=== PATIENT | male | born 1930 | race Caucasian/White ===

== ENCOUNTER 2021-04-17 16:51 | Inpatient (IN) | payer MEDICARE, OTHER ==
[2021-04-16] MEDS: CARVEDILOL 3.125 MG TABLET PO SCH (09:41)
[~2021-04-17] VITALS: Ht 188 cm; Wt 86.6 kg
[~2021-04-17 16:51] MED LIST: ASPI-1094 PO; ATOR20TA PO; CARV3.12 PO; CEPH500C2 PO; FEBU40TA PO; POTA8TAB3 PO; WARF5TAB PO
--- NOTE | 2021-04-17 17:01 | NUR ---
PT BIBRA 88 FOR ELEVATED KEE 99.8 ORAL, SOB 80% IN ROOM AIR , ALS AND EXCESSIVE URINATION. SYMPTOMS STARTED LAST NIGHT. PT COVID VACINATED. UPON TRIAGE RECTAL TEMP 103.1; SKIN WARM TO TOUCH. PT TOLERATING O2 4LPM VIA N/C AT 98%. PT A/OX4. CONNECTED PT TO POX AND MONITOR. SAFETY MEASURES IN PLACE.
[2021-04-17] MEDS ORDERED: ACETAMINOPHEN ES 500 MG TABLET ONE (17:30)
[2021-04-17] MEDS ORDERED: ACETAMINOPHEN ES 500 MG TABLET PO ONE (17:30)
[2021-04-17] MEDS ORDERED: IV NS 0.9% 1,000 ML BAG IV ONE (17:30)
--- NOTE | 2021-04-17 17:38 | NUR ---
DIRECTOR OF THERAPY SERVICES L WRIST #18G S/L; PATENT AND INTACT. INITIATED RFA #18G S/L; PATENT AND INTACT. BLOOD COLLECTED AND SENT TO LAB.
--- NOTE | 2021-04-17 17:45 | NUR ---
URINE COLLECTED AND SENT TO LAB
--- NOTE | 2021-04-17 17:50 | NUR ---
COMMERCIAL FINANCE ANALYST AT PT'S BEDSIDE
--- NOTE | 2021-04-17 18:09 | NUR ---
POC BS 142; BASIL VALLECILLO AWARE
--- NOTE | 2021-04-17 18:18 | NUR ---
COVID PCR SWAB COLLECTED AND SENT TO LAB
[2021-04-17 18:22] LABS: BASOPHILS % (AUTO) 0.3 % (0.0-2.0); HEMATOCRIT 32 % (39-51); HEMOGLOBIN 10.2 g/dL (13.5-17.5); LYMPHOCYTES # (AUTO) 0.5 K/uL (0.8-4.8); LYMPHOCYTES % (AUTO) 7.7 % (20.0-44.0); MEAN CORPUSCULAR HGB CONC 32 g/dl (31.0-36.0); MEAN CORPUSCULAR VOLUME 88 fL (80-96); MONOCYTES # (AUTO) 0.7 K/uL (0.1-1.30); MONOCYTES % (AUTO) 10.8 % (2.0-12.0); NEUTROPHILS # (AUTO) 5.4 K/uL (1.8-8.9); NEUTROPHILS % (AUTO) 81.2 % (43.0-81.0); PLATELET COUNT (AUTO) 205 K/uL (150-450); RED BLOOD CELL COUNT(AUTO) 3.66 MIL/uL (4.5-6.0); WHITE BLOOD COUNT (AUTO) 6.7 K/uL (4.3-11.0)
[2021-04-17 18:24] LABS: BILIRUBIN,URINE NEGATIVE (NEGATIVE); COLOR,URINE YELLOW (YELLOW); LEUKOCYTE ESTERASE ,URINE NEGATIVE (NEGATIVE); NITRITE, URINE POSITIVE (NEGATIVE); PROTEIN,URINE 100 mg/dl (NEGATIVE); UGLUCOSE NEGATIVE (NEGATIVE); UROBILINOGEN,URINE 0.2 EU/dL (0.2)
--- NOTE | 2021-04-17 18:44 | NUR ---
UPDATED WILLIAMS SNOW () ON PT'S STATUS
[2021-04-17 18:48] LABS: BACTERIA,URINE Many /HPF (None Seen); SQUAMOUS EPITHELIAL CELL,UR Few /HPF (None Seen)
[2021-04-17 18:55] LABS: CALCIUM, SERUM 8.7 mg/dL (8.5-10.1); CARBON DIOXIDE 27 mmol/L (21-32); CHLORIDE 101 mmol/L (98-107); CREATININE 1.8 mg/dL (0.6-1.3); GLUCOSE 124 mg/dL (74-106); POTASSIUM 3.4 mmol/L (3.5-5.1); SODIUM SERUM 138 mmol/L (136-145); UREA NITROGEN, BLOOD 32 mg/dL (7-18)
--- NOTE | 2021-04-17 18:56 | NUR ---
PT COVID ANTIGEN (+); NOTIFIED BASIL VALLECILLO
[2021-04-17] MEDS ORDERED: DEXAMETHASONE SOD PHOSPHATE 6 MG in IV D5W 50 ML IV ONE (19:00)
--- NOTE | 2021-04-17 19:03 | NUR ---
Emely ma in [facility] - 04/18/21 at 0117 by DAVID SPUTUM CX COLLECTED BY MEENAKSHI HAYES AND SENT TO LAB
[2021-04-17 19:08] LABS: ALANINE AMINOTRANSFERASE 16 U/L (12-78); ALBUMIN 3.1 g/dL (3.4-5.0); ALKALINE PHOSPHATASE 91 U/L (46-116); ASPARTATE AMINOTRANSFERASE 29 U/L (15-37); BILIRUBIN,DIRECT 0.2 mg/dL (0.0-0.2); BILIRUBIN,TOTAL 0.5 mg/dL (0.2-1.0); TOTAL PROTEIN, SERUM 7.4 g/dL (6.4-8.2)
[2021-04-17] MEDS ORDERED: PIPERACILLIN /TAZOBACTAM 3.375 G in IV D5W 50 ML IV ONE (19:30)
[2021-04-17] MEDS ORDERED: PIPERACILLIN /TAZOBACTAM 3.375 G VIAL IV ONE (19:36)
[2021-04-17] MEDS ORDERED: ONDANSETRON HCL/PF 4 MG/2 ML VIAL IVP PRN (21:30)
[2021-04-17] MEDS ORDERED: ZOLPIDEM TARTRATE 5 MG TABLET PO PRN (21:30)
[2021-04-17] MEDS ORDERED: Z GUARD REMEDY 4 OZ OINT TP PRN (21:30)
[2021-04-17] MEDS ORDERED: MAGNESIUM HYDROXIDE 30 ML UDC PO PRN (21:30)
[2021-04-17] MEDS ORDERED: CARVEDILOL 3.125 MG TABLET ONE (21:38)
[2021-04-17] MEDS ORDERED: CEFTRIAXONE 1GM BAG (ER ONLY) 50 ML IV ONE (21:38)
[2021-04-17] MEDS ORDERED: ATORVASTATIN 10 MG TABLET ONE (22:01)
[2021-04-17] MEDS: CARVEDILOL 3.125 MG TABLET PO SCH (22:01)
[2021-04-17] MEDS: CEFTRIAXONE 1 G in IV D5W 50 ML IV SCH (22:02)
[2021-04-17] MEDS: ATORVASTATIN 10 MG TABLET PO SCH (22:03)
--- NOTE | 2021-04-18 01:19 | NUR ---
PT TOLERATING O2 1LPM VIA N/C AT 98%. RFA #18G & LFA #18G S/L; PATENT AND INTACT. PT IN NO ACUTE DISTRESS AT THIS TIME. ENDORSED CARE TO ИВАН BAIRD.
[2021-04-18 05:02] LABS: BASOPHILS % (AUTO) 0.3 % (0.0-2.0); HEMATOCRIT 36 % (39-51); HEMOGLOBIN 11.2 g/dL (13.5-17.5); LYMPHOCYTES # (AUTO) 0.7 K/uL (0.8-4.8); LYMPHOCYTES % (AUTO) 12.2 % (20.0-44.0); MEAN CORPUSCULAR HGB CONC 31 g/dl (31.0-36.0); MEAN CORPUSCULAR VOLUME 89 fL (80-96); MONOCYTES # (AUTO) 0.4 K/uL (0.1-1.30); MONOCYTES % (AUTO) 6.5 % (2.0-12.0); NEUTROPHILS # (AUTO) 4.9 K/uL (1.8-8.9); PLATELET COUNT (AUTO) 201 K/uL (150-450); RED BLOOD CELL COUNT(AUTO) 4.02 MIL/uL (4.5-6.0)
[2021-04-18 06:09] LABS: CHOLESTEROL 94 mg/dL (<200); HDL CHOLESTEROL 44 mg/dL (40-60); LDL 41 mg/dL (0-99); TRIGLYCERIDES 48 mg/dL (30-150)
[2021-04-18 06:17] LABS: CALCIUM, SERUM 8.9 mg/dL (8.5-10.1); CARBON DIOXIDE 24 mmol/L (21-32); CHLORIDE 101 mmol/L (98-107); CREATININE 1.7 mg/dL (0.6-1.3); GLUCOSE 164 mg/dL (74-106); MAGNESIUM 2.3 mg/dL (1.8-2.4); SODIUM SERUM 138 mmol/L (136-145); UREA NITROGEN, BLOOD 33 mg/dL (7-18)
[2021-04-18] MEDS: DEXAMETHASONE SOD PHOSPHATE 4 MG/ML VIAL IV SCH (09:41)
[2021-04-18] MEDS: ASPIRIN 81 MG TAB.CHEW PO SCH (09:41)
[2021-04-18] MEDS ORDERED: DEXAMETHASONE SOD PHOSPHATE 10 MG/ML VIAL ONE (09:52)
[2021-04-18] MEDS ORDERED: CARVEDILOL 3.125 MG TABLET ONE (09:53)
[2021-04-18] MEDS ORDERED: ASPIRIN 81 MG TAB.CHEW ONE (09:53)
--- NOTE | 2021-04-18 10:56 | NUR ---
GOT BED 107
--- NOTE | 2021-04-18 11:10 | NUR ---
REPORT GIVEN TO DAMIAN FOR SRIDHAR
--- NOTE | 2021-04-18 11:28 | NUR ---
RN NOTE RECEIVE REPORT FROM [facility] ED NURSE.
--- NOTE | 2021-04-18 11:40 | NUR ---
PT TRANSFERRING TO LUIZ 107 VIA ACLS PROTOCOL. PT TOLERATING O2 4LPM VIA N/C AT 95%. ALL BELONGINGS WITH PT.
[2021-04-18 13:54] VITALS: BP 188/124
[2021-04-18] MEDS: IV D5/ 0.9% NACL 1,000 ML IV PRN (14:23)
[2021-04-18 16:00] VITALS: BP 167/85
[2021-04-18] MEDS: WARFARIN SODIUM 5 MG TABLET PO SCH (17:57)
--- NOTE | 2021-04-18 18:38 | NUR ---
RN CLOSING NOTE PATIENT REMAIN IN STABLE CONDITION WITH NO SIGN OF DISTRESS DURING SHIFT. PATIENT WAS ADMITTED TO THE UNIT FROM ED DEPARTMENT. ON O2 THERAPY WITH NC AT 4L/MIN. WITH O2 SAT AT 100%. RECEIVING IV HYDRATION WITH D5 NaCl @75ml/hr. COMPOSITION WEATHERBOARD APPLIER SHOWS AFIB CONTROL. A/O X3. PATIENT IS RESTING COMFORTABLE. PROPER ISOLATION PRECAUTION IN PLACE. ALL SAFETY MEASURE IN PLACE BED ON LOWEST POSITION WITH HOB ELEVATED AND 3 SIDE RAIL UP. CALL LIGHT WITHIN REACH. WILL CONTINUE TO MONITOR AND ENDORSE TO REGISTERED CLIENT ASSOCIATE NURSE.
--- NOTE | 2021-04-18 19:30 | NUR ---
RN OPENING NOTE RECEIVED PATIENT IN BED. A/OX3, WITH PERIODS OF CONFUSION. ON OXYGEN 4L/MIN VIA NASAL CANULA. PATIENT IS TACHYPNEIC AND SOB. O2 SAT 97%. NO C/O PAIN AT THIS TIME. TELE MONITOR READS CONTROLLED AFIB WITH PVC. IV ACCESS IN LEFT HAND AND RIGHT FOREARM RUNNING D5NS@75ML/HR. BED IS LOW AND LOCKED, HOB ELEVATED IN SEMI FOWLERS, SIDE RIALS UP X3, CALL LIGHT WITHIN REACH. BED ALARM ON.
[2021-04-18 20:00] VITALS: BP 180/80
[2021-04-18] MEDS: CARVEDILOL 3.125 MG TABLET PO SCH (20:15)
--- NOTE | 2021-04-18 20:50 | NUR ---
RN NOTE RECEIVED CRITICAL LAB FOR BLOOD CULTURE GRAM POSITIVE COCCI IN [place]. INFORMED CONDUCTOR/ENGINEER MARINO LOAIZA NP, THAT PATIENT IS ON ROCEPHIN 1GM Q24HR. NO NEW ORDERS RECEIVE. LATER SEEN AN ORDER WAS PLACED FOR [facility] TO DOSE.
[2021-04-18] MEDS: CEFTRIAXONE 1 G in IV D5W 50 ML IV SCH (21:02)
[2021-04-18] MEDS: ATORVASTATIN 10 MG TABLET PO SCH (21:03)
[2021-04-18] MEDS ORDERED: VANCOMYCIN 1 GM VIAL ONE (22:43)
[2021-04-18] MEDS ORDERED: VANCOMYCIN 1 GM in IV D5W 250ml IV ONE (23:00)
[2021-04-19] VITALS: BP 143/68
[2021-04-19] MEDS: ACETAMINOPHEN 325 MG TABLET PO PRN ×2 (00:17→21:46)
[2021-04-19 04:00] VITALS: BP 150/47
[2021-04-19] MEDS: IV D5/ 0.9% NACL 1,000 ML IV PRN ×2 (04:25→20:27)
--- NOTE | 2021-04-19 06:14 | NUR ---
RN CLOSING NOTE PATIENT RESTING IN BED. A/OX2-3, WITH PERIODS OF CONFUSION. ON OXYGEN 10L/MIN VIA SIMPLE MASK.REMAINS TACHYPNEIC, INFORMED MULTIPLE TIME TO KEEP MASK ON. NO C/O PAIN THROUGHOUT NIGHT. MANAGED FEVER OF 101.6 WITH TYLENOL. TELE MONITOR IS CONTROLLED AFIB. RFA RUNNING D5NS@75ML/HR. BED REMAINS LOW AND LOCKED, HOB ELEVATED IN SEMI FOWLERS, SIDE RIALS UP X3, CALL LIGHT WITHIN REACH. BED ALARM ON. WILL ENDORSE TO ONCOMING SHIFT
[2021-04-19 06:41] LABS: BASOPHILS % (AUTO) 0.1 % (0.0-2.0); HEMATOCRIT 35 % (39-51); LYMPHOCYTES # (AUTO) 0.7 K/uL (0.8-4.8); LYMPHOCYTES % (AUTO) 6.4 % (20.0-44.0); MEAN CORPUSCULAR HGB CONC 32 g/dl (31.0-36.0); MEAN CORPUSCULAR VOLUME 89 fL (80-96); MONOCYTES # (AUTO) 0.9 K/uL (0.1-1.30); MONOCYTES % (AUTO) 8.4 % (2.0-12.0); NEUTROPHILS # (AUTO) 9.2 K/uL (1.8-8.9); NEUTROPHILS % (AUTO) 85.1 % (43.0-81.0); PLATELET COUNT (AUTO) 235 K/uL (150-450); RED BLOOD CELL COUNT(AUTO) 3.92 MIL/uL (4.5-6.0); WHITE BLOOD COUNT (AUTO) 10.8 K/uL (4.3-11.0)
[2021-04-19 06:49] LABS: CALCIUM, SERUM 8.9 mg/dL (8.5-10.1); CARBON DIOXIDE 25 mmol/L (21-32); CHLORIDE 103 mmol/L (98-107); CREATININE 1.7 mg/dL (0.6-1.3); GLUCOSE 139 mg/dL (74-106); MAGNESIUM 2.1 mg/dL (1.8-2.4); POTASSIUM 3.6 mmol/L (3.5-5.1); SODIUM SERUM 137 mmol/L (136-145); UREA NITROGEN, BLOOD 41 mg/dL (7-18)
[2021-04-19 07:00] LABS: PHOSPHORUS 3.4 mg/dL (2.5-4.9)
--- NOTE | 2021-04-19 07:28 | NUR ---
MECHANICAL ENGINEERING TEACHER OPENING NOTE RECEIVED PATIENT IN BED. A/OX2-3, WITH PERIODS OF CONFUSION. ON OXYGEN 10L/MIN VIA SIMPLE MASK. PATIENT IS TACHYPNEIC AND SOB. O2 SAT 97%. NO C/O PAIN AT THIS TIME. TELE MONITOR READS CONTROLLED AFIB WITH PVC. IV ACCESS IN LEFT HAND AND RIGHT FOREARM RUNNING D5NS@75ML/HR. BED IS LOW AND LOCKED, HOB ELEVATED IN SEMI FOWLERS, SIDE RIALS UP X3, CALL LIGHT WITHIN REACH. BED ALARM ON, WILL CONTINUE TO MONITOR.
[2021-04-19 08:00] VITALS: BP 157/80
[2021-04-19] MEDS: DEXAMETHASONE SOD PHOSPHATE 4 MG/ML VIAL IV SCH (08:51)
[2021-04-19] MEDS: ASPIRIN 81 MG TAB.CHEW PO SCH (08:51)
[2021-04-19] MEDS: CARVEDILOL 3.125 MG TABLET PO SCH ×2 (08:52→21:47)
[2021-04-19 11:04] LABS: FERRITIN 110 ng/mL (8-388)
[2021-04-19] MEDS: DOXYCYCLINE 100 MG in IV D5W 100 ML IV SCH ×2 (11:07→21:16)
[2021-04-19 12:00] VITALS: BP 106/35
[2021-04-19 12:24] LABS: ABG BASE EXCESS -1.2 mmol/L; ABG OXYGEN SATURATION 98.1 % (92.0-98.5); ABG PCO2 45.8 mmHg (35.0-45.0); ABG PH 7.348 (7.350-7.450); ABG PO2 125.1 mmHg (75.0-100.0); AaDO2 179.9 mmHg; COHb 0.3 % (0.5-1.5); O2Hb 97.8 % (94.0-97.0); SITE, ABG Right Radial; VENT MODE, BG SIMPLE MASK
[2021-04-19] MEDS ORDERED: REMDESIVIR (CHARGED) 200 MG, *LOADING DOSE 1 EA in IV NS 0.9% 210 ML IV ONE (12:30)
[2021-04-19] MEDS ORDERED: MEROPENEM 500 MG in IV NS 0.9% 50 ML IV SCH (13:00)
[2021-04-19 16:00] VITALS: BP 128/51
[2021-04-19] MEDS: WARFARIN SODIUM 5 MG TABLET PO SCH (17:00)
--- NOTE | 2021-04-19 17:30 | NUR ---
RN NOTE NOTIFIED DR. TRAN OF ELEVATED INR. OKAY TO HOLD WARFARIN.
--- NOTE | 2021-04-19 18:38 | NUR ---
RN CLOSING NOTE PATIENT RESTING IN BED. A/OX2-3, WITH PERIODS OF CONFUSION. ON OXYGEN 10L/MIN VIA SIMPLE MASK.REMAINS TACHYPNEIC, INFORMED MULTIPLE TIME TO KEEP MASK ON. NO C/O PAIN THROUGHOUT NIGHT. TELE MONITOR IS CONTROLLED AFIB. RFA RUNNING D5NS@75ML/HR. BED REMAINS LOW AND LOCKED, HOB ELEVATED IN SEMI FOWLERS, SIDE RIALS UP X3, CALL LIGHT WITHIN REACH. BED ALARM ON. WILL ENDORSE TO DOUBLE BASS PLAYER NURSE
--- NOTE | 2021-04-19 19:30 | NUR ---
RN OPENING NOTE RECEIVED PATIENT IN BED. A/OX2 CONFUSED. ON OXYGEN 6L/MIN VIA NASAL CANULA. TACHYPNEIC AND SOB. INFORMED PATIENT TO KEEP O2 ON. NO C/O PAIN AT THIS TIME. TELE MONITOR READS UNCONTROLLED AFIB HR 110. IV ACCESS IN LEFT HAND AND RIGHT FOREARM RUNNING D5NS@75ML/HR. BED IS LOW AND LOCKED, HOB ELEVATED IN SEMI FOWLERS, SIDE RIALS UP X3, CALL LIGHT WITHIN REACH. BED ALARM ON.
[2021-04-19 20:00] VITALS: BP 133/79
[2021-04-19] MEDS: MEROPENEM 1 G in IV NS 0.9% 100 ML IV SCH (20:29)
[2021-04-19] MEDS: ATORVASTATIN 10 MG TABLET PO SCH (21:46)
[2021-04-19] MEDS ORDERED: VANCOMYCIN 1 GM in IV D5W 250 ML IV SCH (22:00)
--- NOTE | 2021-04-19 22:44 | NUR ---
RN NOTE SPOKE WITH DIRECTOR OF SOCIAL WORK MARINO LOAIZA GLOBAL TECHNICAL WRITER THAT PATIENT KEEPS REMOVING O2 DESPITE EDUCATION AND FREQUENT MONITORING. RECEIVED ORDER FOR BILATERAL SOFT WRIST RESTRAINTS, ORDER READ BACK NOTED AND CARRIED OUT.
[2021-04-20] VITALS: BP 111/67
[2021-04-20 04:00] VITALS: BP 141/93
--- NOTE | 2021-04-20 06:09 | NUR ---
RN CLOSING NOTE IN BED. A/OX2 CONFUSED. REMAINS ON OXYGEN 6L/MIN VIA NASLA CANNULA. TACHYPNEIC AND SOB. NO PAIN. TYLENOL MANAGED TEMP. UNCONTROLLED AFIB AND CONTROLLED AFIB THROUGHOUT NIGHT. RIGHT FOREARM RUNNING D5NS@75ML/HR. BED REMAINS LOW AND LOCKED, HOB ELEVATED IN SEMI FOWLERS, SIDE RIALS UP X3, CALL LIGHT WITHIN REACH. BED ALARM ON. BILATERAL SOFT WRIST PRESENT, GOOD CAP REFILL.
[2021-04-20 06:39] LABS: BASOPHILS % (AUTO) 0.1 % (0.0-2.0); HEMATOCRIT 34 % (39-51); HEMOGLOBIN 10.4 g/dL (13.5-17.5); LYMPHOCYTES # (AUTO) 0.6 K/uL (0.8-4.8); LYMPHOCYTES % (AUTO) 5.7 % (20.0-44.0); MEAN CORPUSCULAR HGB CONC 31 g/dl (31.0-36.0); MEAN CORPUSCULAR VOLUME 89 fL (80-96); MONOCYTES # (AUTO) 0.9 K/uL (0.1-1.30); MONOCYTES % (AUTO) 8.4 % (2.0-12.0); NEUTROPHILS # (AUTO) 9.6 K/uL (1.8-8.9); NEUTROPHILS % (AUTO) 85.8 % (43.0-81.0); PLATELET COUNT (AUTO) 220 K/uL (150-450); RED BLOOD CELL COUNT(AUTO) 3.79 MIL/uL (4.5-6.0); WHITE BLOOD COUNT (AUTO) 11.1 K/uL (4.3-11.0)
[2021-04-20 07:31] LABS: ALANINE AMINOTRANSFERASE 25 U/L (12-78); ALBUMIN 2.5 g/dL (3.4-5.0); ALKALINE PHOSPHATASE 77 U/L (46-116); ASPARTATE AMINOTRANSFERASE 51 U/L (15-37); BILIRUBIN,DIRECT 0.2 mg/dL (0.0-0.2); BILIRUBIN,TOTAL 0.4 mg/dL (0.2-1.0); CALCIUM, SERUM 8.3 mg/dL (8.5-10.1); CARBON DIOXIDE 23 mmol/L (21-32); CHLORIDE 106 mmol/L (98-107); CREATININE 1.7 mg/dL (0.6-1.3); GLUCOSE 153 mg/dL (74-106); POTASSIUM 3.8 mmol/L (3.5-5.1); SODIUM SERUM 141 mmol/L (136-145); TOTAL PROTEIN, SERUM 6.9 g/dL (6.4-8.2); UREA NITROGEN, BLOOD 52 mg/dL (7-18)
--- NOTE | 2021-04-20 07:38 | NUR ---
RN OPEN NOTE PT RECEIVED IN BED. A/OX2 CONFUSED. REMAINS ON OXYGEN 6L/MIN VIA NASAL CANNULA. TACHYPNEIC AND SOB. TELE READING AFIB HR 90 AT THIS TIME, RIGHT FOREARM RUNNING D5NS@75ML/HR. SAFETY MEASURES IN PLACE BED LOW AND LOCKED POSITION, HOB ELEVATED IN SEMI F POSITION, SIDE RIALS UP X3, CALL LIGHT WITHIN REACH. BED ALARM ON. BILATERAL SOFT WRIST RESTRAINT PRESENT WITH CAP REFILL LESS THAN 3 SECONDS WILL CONTINUE TO MONITOR
[2021-04-20 08:00] VITALS: BP 151/97
[2021-04-20] MEDS: ASPIRIN 81 MG TAB.CHEW PO SCH (09:19)
[2021-04-20] MEDS: MEROPENEM 1 G in IV NS 0.9% 100 ML IV SCH ×2 (09:19→21:48)
[2021-04-20] MEDS: CARVEDILOL 3.125 MG TABLET PO SCH ×2 (09:19→22:00)
[2021-04-20] MEDS: DEXAMETHASONE SOD PHOSPHATE 4 MG/ML VIAL IV SCH (09:19)
[2021-04-20] MEDS: DOXYCYCLINE 100 MG in IV D5W 100 ML IV SCH ×2 (09:20→22:36)
--- NOTE | 2021-04-20 10:50 | NUR ---
RN NOTE PT IS SCREAMING HE DOES NOT WANT TO BE ON RESTRAINT SPOKE TO TO HELP HIM CALM DOWN WILL CONTINUE TO MONITOR
[2021-04-20 12:00] VITALS: BP 155/85
[2021-04-20] MEDS: REMDESIVIR (CHARGED) 100 MG in IV NS 0.9% 100 ML IV SCH (12:00)
[2021-04-20 16:00] VITALS: BP 160/85
[2021-04-20] MEDS: WARFARIN SODIUM 5 MG TABLET PO SCH (16:06)
[2021-04-20] MEDS: IV D5/ 0.9% NACL 1,000 ML IV PRN (17:22)
--- NOTE | 2021-04-20 18:44 | NUR ---
RN CLOSING NOTE PT REMAINS IN BED. A/OX2 CONFUSED. ON OXYGEN 8L VIA SIMPLE MASK, BREATHING EVEN AND UNLABORED, NO SOB OR DISTRESS AT THIS TIME TELE READING AFIB HR 88 AT THIS TIME, LEFT FOREARM RUNNING D5NS@75ML/HR. PT COMBATIVE ON BILATERAL SOFT WRIST RESTRAINT PRESENT WITH CAP REFILL LESS THAN 3 SECONDS, ALL NEEDS MET DURING SHIFT REMDESEVIR INFUSED AND TOLERATED WELL, SAFETY MEASURES IN PLACE BED LOW AND LOCKED POSITION, HOB ELEVATED IN SEMI F POSITION, SIDE RIALS UP X3, CALL LIGHT WITHIN REACH. BED ALARM ON. WILL ENDORSE TO POULTRY PICKERSTONEMASON
--- NOTE | 2021-04-20 19:41 | NUR ---
RN NOTE RECEIVED PATIENT IN BED, AWAKE, ALERT, AND VERBALLY RESPONSIVE. AOX1. CONFUSED AT THIS TIME. BREATHING NOTED WITH SOB. ON OXYGEN, 6L/VIA SIMPLE MASK. HOB ELEVATED 35 DEGREES. SKIN WARM AND DRY. NOTED WITH LFA 18G RUNNING D5 NS AT 75 CC/HR. NOTED WITH BILATERAL SOFT WRIST RESTRAINTS. 2 FINGER SPACE OBSERVED. DENIES PAIN AT THIS TIME. BED LOW, IN LOCKED POSITION. CALL LIGHT WITHIN REACH.
[2021-04-20 20:00] VITALS: BP 152/72
--- NOTE | 2021-04-20 21:03 | NUR ---
RN NOTE LEFT FOREARM PERIPHERAL IV 18G, APPEARS TO NOT BE PATENT. NOTED WITH INFILTRATION. D/C. INSERTED PERIPHERAL IV 22G ON RIGHT FOREARM. PATENT WITH GOOD BLOOD RETURN. RUNNING D5 NS AT 75 CC/HR. WILL CONTINUE TO MONITOR.
--- NOTE | 2021-04-20 21:05 | NUR ---
RN NOTE PATIENTS LEFT FOREARM PERIPHERAL IV 18G, INFILTRATED. PATIENTS ARM ELEVATED ON TWO PILLOWS. IV ACCESS REMOVED. IV INTACT. WILL CONTINUE TO MONITOR.
--- NOTE | 2021-04-20 21:30 | NUR ---
RN NOTE PATIENT STABLE ON 4L/MIN VIA NASAL CANNULA. OXYGEN SATURATION OF 95 PERCENT. PATIENT AT THIS TIME TRYING TO GET OUT OF BED. STATING HE HAS A MEDICAL APPOINTMENT TO GO TO. PATIENT REORIENTED. PROVIDED FLUIDS FOR ADEQUATE HYDRATION. BED LOW, IN LOCKED POSITION. CALL LIGHT WITHIN REACH.
--- NOTE | 2021-04-20 21:56 | NUR ---
RN NOTE PATIENT AGITATED, KICKING, AND YELLING. INFORMED MD OF SITUATION. NEW ORDER OF SEROQUEL 25 PO ONCE, NOTED AND CARRIED OUT.
[2021-04-20] MEDS ORDERED: QUETIAPINE FUMARATE 25 MG TABLET PO ONE (22:00)
[2021-04-20] MEDS: ATORVASTATIN 10 MG TABLET PO SCH (22:01)
[2021-04-21] VITALS: BP 138/77
[2021-04-21 04:00] VITALS: BP 124/94
[2021-04-21] MEDS: IV D5/ 0.9% NACL 1,000 ML IV PRN (05:56)
--- NOTE | 2021-04-21 07:41 | NUR ---
RN OPEN NOTE RECEIVED PATIENT IN BED, AWAKE, ALERT AND ORIENTED X1 VERBALLY RESPONSIVE. CONFUSED AT THIS TIME. BREATHING NOTED WITH SOB. ON OXYGEN, 4L VIA NASAL CANULA, SKIN WARM AND DRY. IV ON THE RFA #22 RUNNING D5 NS AT 40 ML/HR. NOTED WITH BILATERAL SOFT WRIST RESTRAINTS. 2 FINGER SPACE OBSERVED. DENIES PAIN AT THIS TIME. SAFETY MEASURES IN PLACE BED LOW AND IN LOCKED POSITION. CALL LIGHT WITHIN REACH. WILL CONTINUE TO MONITOR
[2021-04-21 08:00] VITALS: BP 170/96
[2021-04-21] MEDS: ASPIRIN 81 MG TAB.CHEW PO SCH (08:32)
[2021-04-21] MEDS: DEXAMETHASONE SOD PHOSPHATE 10 MG/ML VIAL IV SCH (08:32)
[2021-04-21] MEDS: CARVEDILOL 3.125 MG TABLET PO SCH ×2 (08:32→20:57)
[2021-04-21] MEDS: MEROPENEM 1 G in IV NS 0.9% 100 ML IV SCH ×2 (08:32→20:19)
[2021-04-21] MEDS: DOXYCYCLINE 100 MG in IV D5W 100 ML IV SCH ×2 (08:42→20:57)
[2021-04-21 09:05] LABS: BASOPHILS % (AUTO) 0.2 % (0.0-2.0); HEMATOCRIT 35 % (39-51); HEMOGLOBIN 10.9 g/dL (13.5-17.5); LYMPHOCYTES # (AUTO) 0.6 K/uL (0.8-4.8); LYMPHOCYTES % (AUTO) 6.5 % (20.0-44.0); MEAN CORPUSCULAR HGB CONC 31 g/dl (31.0-36.0); MEAN CORPUSCULAR VOLUME 89 fL (80-96); MONOCYTES # (AUTO) 0.9 K/uL (0.1-1.30); MONOCYTES % (AUTO) 9.3 % (2.0-12.0); NEUTROPHILS # (AUTO) 8.3 K/uL (1.8-8.9); PLATELET COUNT (AUTO) 234 K/uL (150-450); RED BLOOD CELL COUNT(AUTO) 3.93 MIL/uL (4.5-6.0); WHITE BLOOD COUNT (AUTO) 9.9 K/uL (4.3-11.0)
[2021-04-21 09:09] LABS: ALANINE AMINOTRANSFERASE 27 U/L (12-78); ALBUMIN 2.5 g/dL (3.4-5.0); ALKALINE PHOSPHATASE 73 U/L (46-116); ASPARTATE AMINOTRANSFERASE 46 U/L (15-37); BILIRUBIN,DIRECT 0.2 mg/dL (0.0-0.2); BILIRUBIN,TOTAL 0.4 mg/dL (0.2-1.0); CALCIUM, SERUM 8.6 mg/dL (8.5-10.1); CARBON DIOXIDE 25 mmol/L (21-32); CHLORIDE 109 mmol/L (98-107); CREATININE 1.5 mg/dL (0.6-1.3); GLUCOSE 153 mg/dL (74-106); SODIUM SERUM 145 mmol/L (136-145); TOTAL PROTEIN, SERUM 6.8 g/dL (6.4-8.2); UREA NITROGEN, BLOOD 54 mg/dL (7-18)
[2021-04-21 12:00] VITALS: BP 149/73
[2021-04-21] MEDS: REMDESIVIR (CHARGED) 100 MG in IV NS 0.9% 100 ML IV SCH (13:34)
--- NOTE | 2021-04-21 15:32 | NUR ---
RN NOTE ROUND MADE PT IS SLEEPING COMFORTABLE, REMDESIVIR TOLERATED WELL, INR 4.20 PER DOCTOR HOLD COUMADIN, WILL CONTINUE TO MONITOR
[2021-04-21 16:00] VITALS: BP 123/47
[2021-04-21] MEDS: WARFARIN SODIUM 5 MG TABLET PO SCH (17:00)
--- NOTE | 2021-04-21 18:36 | NUR ---
RN CLOSING NOTE PATIENT REMAINS IN BED, AWAKE, ALERT AND ORIENTED X1 VERBALLY RESPONSIVE. CONFUSED AT THIS TIME. ON OXYGEN, 4L VIA NASAL CANULA, SKIN WARM AND DRY. IV ON THE RFA #22 RUNNING D5 NS AT 40 ML/HR. NOTED WITH BILATERAL SOFT WRIST RESTRAINTS. 2 FINGER SPACE OBSERVED CAPILLARY REFILL LESS THAN 3 SEC ALL NEEDS MET PT KEEP CLEAN AND COMFORTABLE, NO SIGNIFICANT CHANGES DURING SHIFT, ALL MEDS DUE, SAFETY MEASURES IN PLACE BED LOW AND IN LOCKED POSITION. CALL LIGHT WITHIN REACH. WILL ENDORSE TO BILINGUAL ELEMENTARY SCHOOL TEACHERROLL UP MACHINE OPERATOR
--- NOTE | 2021-04-21 19:40 | NUR ---
RN NOTE RECEIVED PATIENT IN BED, SLEEPING, EASILY AROUSABLE TO NAME AND TOUCH. AOX2. EASILY AGITATED. BREATHING EVEN AND UNLABORED. NO SOB NOTED. ON NASAL CANNULA AT 4L/MIN, TOLERATING WELL. HOB ELEVATED 30 DEGREES. DENIES CHEST PAIN AT THIS TIME. ON TELE MONITORING, A.FIB AT 66 BPM. SKIN WARM AND DRY. NOTED WITH RFA 22G RUNNING D5 NS@ 40 CC/HR. NOTED WITH BILATERAL SOFT WRIST RESTRAINTS. TWO FINGER SPACE OBSERVED. CAPILLARY REFILL WNL. FLUIDS PROVIDED FOR ADEQUATE HYDRATION. BED LOW, IN LOCKED POSITION, CALL LIGHT WITHIN REACH.
[2021-04-21 20:00] VITALS: BP 130/67
[2021-04-21] MEDS: ATORVASTATIN 10 MG TABLET PO SCH (21:00)
[2021-04-22] VITALS: BP 134/75
[2021-04-22 04:00] VITALS: BP 143/89
[2021-04-22] MEDS: IV D5/ 0.9% NACL 1,000 ML IV PRN (04:36)
--- NOTE | 2021-04-22 04:52 | NUR ---
RN NOTE PATIENT'S SUPPLEMENTAL OXYGEN REDUCED TO 2L/MIN FROM 4L/MIN. TOLERATING WELL. OXYGEN SATURATION OF 95-98 PERCENT. WILL CONTINUE TO MONITOR.
[2021-04-22 07:20] LABS: BASOPHILS % (AUTO) 0.1 % (0.0-2.0); HEMATOCRIT 34 % (39-51); HEMOGLOBIN 10.6 g/dL (13.5-17.5); LYMPHOCYTES # (AUTO) 0.6 K/uL (0.8-4.8); LYMPHOCYTES % (AUTO) 7.8 % (20.0-44.0); MEAN CORPUSCULAR HGB CONC 32 g/dl (31.0-36.0); MEAN CORPUSCULAR VOLUME 88 fL (80-96); MONOCYTES # (AUTO) 0.7 K/uL (0.1-1.30); MONOCYTES % (AUTO) 9.1 % (2.0-12.0); NEUTROPHILS # (AUTO) 6.2 K/uL (1.8-8.9); PLATELET COUNT (AUTO) 253 K/uL (150-450); RED BLOOD CELL COUNT(AUTO) 3.82 MIL/uL (4.5-6.0); WHITE BLOOD COUNT (AUTO) 7.5 K/uL (4.3-11.0)
--- NOTE | 2021-04-22 07:53 | NUR ---
RN NOTE RECEIVED PATIENT IN BED, SLEEPING, EASILY AROUSABLE TO NAME AND TOUCH. AOX2. EASILY AGITATED. BREATHING EVEN AND UNLABORED. NO SOB NOTED. ON NASAL CANNULA AT 4L/MIN, TOLERATING WELL. HOB ELEVATED 30 DEGREES. DENIES CHEST PAIN AT THIS TIME. ON TELE MONITORING, A.FIB AT 72 BPM. SKIN WARM AND DRY. NOTED WITH RFA 22G RUNNING D5 NS@ 40 CC/HR. NOTED WITH BILATERAL SOFT WRIST RESTRAINTS. TWO FINGER SPACE OBSERVED. CAPILLARY REFILL WNL. FLUIDS PROVIDED FOR ADEQUATE HYDRATION. BED LOW, IN LOCKED POSITION, CALL LIGHT WITHIN REACH.
[2021-04-22 08:00] VITALS: BP 126/74
[2021-04-22 08:41] LABS: ALANINE AMINOTRANSFERASE 39 U/L (12-78); ALBUMIN 2.3 g/dL (3.4-5.0); ALKALINE PHOSPHATASE 69 U/L (46-116); ASPARTATE AMINOTRANSFERASE 55 U/L (15-37); BILIRUBIN,DIRECT 0.2 mg/dL (0.0-0.2); BILIRUBIN,TOTAL 0.3 mg/dL (0.2-1.0); CALCIUM, SERUM 8.5 mg/dL (8.5-10.1); CARBON DIOXIDE 26 mmol/L (21-32); CHLORIDE 110 mmol/L (98-107); CREATININE 1.4 mg/dL (0.6-1.3); GLUCOSE 170 mg/dL (74-106); POTASSIUM 3.8 mmol/L (3.5-5.1); SODIUM SERUM 145 mmol/L (136-145); TOTAL PROTEIN, SERUM 6.4 g/dL (6.4-8.2); UREA NITROGEN, BLOOD 59 mg/dL (7-18)
[2021-04-22] MEDS: CARVEDILOL 3.125 MG TABLET PO SCH ×2 (08:44→21:22)
[2021-04-22] MEDS: ASPIRIN 81 MG TAB.CHEW PO SCH (08:44)
[2021-04-22] MEDS: DEXAMETHASONE SOD PHOSPHATE 10 MG/ML VIAL IV SCH (08:45)
[2021-04-22] MEDS: MEROPENEM 1 G in IV NS 0.9% 100 ML IV SCH ×2 (08:45→21:24)
--- NOTE | 2021-04-22 09:00 | NUR ---
RN NOTE PER LAB INR 4.47 - DR. TRAN NOTIFIED AND REQUESTS TO HOLD COUMADIN
[2021-04-22] MEDS: DOXYCYCLINE 100 MG in IV D5W 100 ML IV SCH ×2 (09:33→20:10)
[2021-04-22 12:00] VITALS: BP 160/78
[2021-04-22] MEDS: REMDESIVIR (CHARGED) 100 MG in IV NS 0.9% 100 ML IV SCH (12:33)
[2021-04-22] MEDS: WARFARIN SODIUM 5 MG TABLET PO SCH (15:53)
[2021-04-22 16:00] VITALS: BP 144/67
--- NOTE | 2021-04-22 19:35 | NUR ---
RN OPENING NOTE RECEIVED PATIENT IN BED, RESTING COMFORTABLY, ABLE TO RESPOND BACK TO NAME AND TOUCH. AOX2. EASILY AGITATED.BREATHING EVEN AND UNLABORED. NO SOB NOTED. ON NASAL CANNULA AT 2L/MIN, TOLERATING WELL. HOB ELEVATED 30 DEGREES. DENIES CHEST PAIN AT THIS TIME. ON TELE MONITORING, A.FIB AT 80 BPM. SKIN WARM AND DRY. NOTED WITH RFA 22G RUNNING D5 NS@ 40 CC/HR. FLUIDS PROVIDED FOR ADEQUATE HYDRATION. BED LOW, IN LOCKED POSITION, CALL LIGHT WITHIN REACH. BED LOCKED, AND ALL ISOLATION AND ENIRONMENTAL SAFETY MEASURES TAKEN PER HOSPITAL POLICY.
[2021-04-22 20:00] VITALS: BP 195/102
--- NOTE | 2021-04-22 21:12 | NUR ---
Spoke with Dalila about pts bp being 205/102,, she gave one dose 20mg iv hydrazline . ordered followed through
[2021-04-22] MEDS: ATORVASTATIN 10 MG TABLET PO SCH (21:23)
[2021-04-22] MEDS ORDERED: hydrALAZINE HCL IV 20 MG VIAL IV ONE (21:30)
[2021-04-23] VITALS: BP 149/90
[2021-04-23 04:00] VITALS: BP 184/95
[2021-04-23] MEDS: IV D5/ 0.9% NACL 1,000 ML IV PRN (04:13)
--- NOTE | 2021-04-23 05:03 | NUR ---
CONTACTED JOSSE FOR PATIENTS BP THAT IS HIGH 200/95 , RE RESPONSE BACK. WILL CONTINUE TO CONTACT FOR FURTHER ORDERS.
--- NOTE | 2021-04-23 05:27 | NUR ---
CALLED JOSSE FOR ORDER FOR PATIENTS BP THAT IS HIGH 200/95 NO RESPONSE, WILL TRY AGAIN TO REACH PROVIDER.
--- NOTE | 2021-04-23 05:34 | NUR ---
RN NOTE CALLED EPIC TO PAGE PROVIDER JOSSE FOR FURTHER INSTRUCTIONS FOR PATIENTS HIGH BP200/95.
--- NOTE | 2021-04-23 05:53 | NUR ---
RN NOTE SPOKE WITH NURSING JOURNEYMAN LINEMAN KARLA, I EXPLAINED TO HER THE SITUATION, THAT THE PATIENTS BP IS HIGHLY ELEVATED 200//95. SHE SAID SHE WILL TRY TO GET IN TOUCH WITH JOSSE.
[2021-04-23] MEDS ORDERED: hydrALAZINE HCL IV 20 MG VIAL IV ONE (06:00)
[2021-04-23 07:09] LABS: BASOPHILS % (AUTO) 0.2 % (0.0-2.0); HEMATOCRIT 35 % (39-51); LYMPHOCYTES # (AUTO) 0.6 K/uL (0.8-4.8); LYMPHOCYTES % (AUTO) 6.4 % (20.0-44.0); MEAN CORPUSCULAR HGB CONC 32 g/dl (31.0-36.0); MEAN CORPUSCULAR VOLUME 88 fL (80-96); MONOCYTES # (AUTO) 0.8 K/uL (0.1-1.30); MONOCYTES % (AUTO) 8.3 % (2.0-12.0); NEUTROPHILS # (AUTO) 7.7 K/uL (1.8-8.9); NEUTROPHILS % (AUTO) 85.1 % (43.0-81.0); PLATELET COUNT (AUTO) 297 K/uL (150-450); RED BLOOD CELL COUNT(AUTO) 3.96 MIL/uL (4.5-6.0)
--- NOTE | 2021-04-23 07:20 | NUR ---
RN NOTE PATIENT OBSERVED AWAKE IN BED, ALERT AND ORIENTED X1 WITH EPISODE OF CONFUSION NOTED, ON TELE MONITOR A-FIB NOTED NO PAIN COMPLAIN, ON O2 VIA NC @ 4LPM O2 SAT OF 98% TOLERATING WELL, BREATHING EVEN AND UNLABORED, IV SITE PATENT ON RIGHT FORE ARM FLUSHING WELL RUNNING D5 NS @ 40CC/HR INFUSING WELL, SAFETY MEASURES OBSERVED, BED WHEELS LOCK CALL LIGHT WITHIN REACH, WILL CONTINUE TO MONITOR.
--- NOTE | 2021-04-23 07:45 | NUR ---
RN CLOSING NOTE PATIENT REMAINS IN BED RESTING.A/O X 2. ALL PATIENT NEEDS MET, ALL MEDICATIONS GIVEN PER ORDER, AND ALL NECESSARY MEASURES TAKEN TO ENSURE PATIENT SAFETY. ALL ISOLATION PRECAUTIONS TAKEN, AND ALL ENVIRONMENTAL SAFETY MEASURES TAKEN. WILL ENDORSE PLAN OF CARE TO ONCOMING NURSE FOR CONTINUOS MONITORING OF BP AND ALL OTHER NEEDS FOR PATIENT.
[2021-04-23 08:00] VITALS: BP 149/89
[2021-04-23 09:03] LABS: ALANINE AMINOTRANSFERASE 36 U/L (12-78); ALBUMIN 2.4 g/dL (3.4-5.0); ALKALINE PHOSPHATASE 71 U/L (46-116); ASPARTATE AMINOTRANSFERASE 37 U/L (15-37); BILIRUBIN,DIRECT 0.2 mg/dL (0.0-0.2); BILIRUBIN,TOTAL 0.4 mg/dL (0.2-1.0); CALCIUM, SERUM 8.8 mg/dL (8.5-10.1); CARBON DIOXIDE 23 mmol/L (21-32); CHLORIDE 111 mmol/L (98-107); CREATININE 1.4 mg/dL (0.6-1.3); GLUCOSE 167 mg/dL (74-106); POTASSIUM 3.9 mmol/L (3.5-5.1); SODIUM SERUM 145 mmol/L (136-145); TOTAL PROTEIN, SERUM 6.5 g/dL (6.4-8.2); UREA NITROGEN, BLOOD 60 mg/dL (7-18)
[2021-04-23] MEDS: CARVEDILOL 3.125 MG TABLET PO SCH ×2 (09:12→20:53)
[2021-04-23] MEDS: MEROPENEM 1 G in IV NS 0.9% 100 ML IV SCH ×2 (09:12→20:52)
[2021-04-23] MEDS: ASPIRIN 81 MG TAB.CHEW PO SCH (09:12)
[2021-04-23] MEDS: DEXAMETHASONE SOD PHOSPHATE 10 MG/ML VIAL IV SCH (09:12)
[2021-04-23] MEDS: DOXYCYCLINE 100 MG in IV D5W 100 ML IV SCH ×2 (10:06→21:54)
--- NOTE | 2021-04-23 11:00 | NUR ---
RN NOTE NOTIFIED DR. TRAN REGARDING PATIENT ELEVATED PT/INR/PTT VALUES, NO NEW ORDER.
[2021-04-23] MEDS: hydrALAZINE HCL IV 20 MG VIAL IV PRN ×2 (11:46→20:53)
[2021-04-23 12:00] VITALS: BP 142/88
[2021-04-23] MEDS: REMDESIVIR (CHARGED) 100 MG in IV NS 0.9% 100 ML IV SCH (12:44)
[2021-04-23 16:00] VITALS: BP 158/89
--- NOTE | 2021-04-23 19:35 | NUR ---
RN NOTE PT RECEIVED IN BED. PT IS ON 4L OF O2 VIA NC SHOWING NO S/S OF RESP DISTRESS. BREATHING EVEN AND UNLABORED. PT IS ALERT AND ORIENTED X2. ON AUTOMOBILE DEALER SHOWING CONTROLLED A-FIB. ON CARDIAC DIET. IV ACCESS NOTED ON RIGHT FA. LINE FLUSHED, PATENT, AND INTACT WITH NO SIGNS OF INFILTRATION. D5NS RUNNING AT 40 ML/HR. ALL SAFETY MEASURES IMPLEMENTED. CALL LIGHT WITHIN REACH. BED ALARM ON. BED LOCKED AND IN LOWEST POSITION. SIDE RAILS UP. WILL CONTINUE TO MONITOR AND ASSESS FOR ANY CHANGES DURING SHIFT.
[2021-04-23 20:00] VITALS: BP 191/104
[2021-04-23] MEDS: ATORVASTATIN 10 MG TABLET PO SCH (21:13)
[2021-04-24] VITALS: BP 133/63
[2021-04-24 04:00] VITALS: BP 151/60
--- NOTE | 2021-04-24 06:49 | NUR ---
RN NOTE NO CHANGES IN PT CONDITION DURING SHIFT. PT IS ON 4L OF O2 VIA NC SHOWING NO S/S OF RESP DISTRESS. BREATHING EVEN AND UNLABORED. PT IS ALERT AND ORIENTED X2. ON MOTEL CLERK SHOWING CONTROLLED A-FIB. IV ACCESS NOTED ON RIGHT FA #22. LINE FLUSHED, PATENT, AND INTACT WITH NO SIGNS OF INFILTRATION. D5NS RUNNING AT 40 ML/HR. PT TOLERATING WELL. ALL DUE MEDS GIVEN ORDERED. PT KEPT CLEAN AND COMFORTABLE. ALL SAFETY MEASURES IMPLEMENTED. CALL LIGHT WITHIN REACH. BED ALARM ON. BED LOCKED AND IN LOWEST POSITION. SIDE RAILS UP. WILL ENDORSE TO MORNING SHIFT RN FOR SRIDHAR.
--- NOTE | 2021-04-24 07:50 | NUR ---
RN OPENING NOTE- AWAKE IN BED TALKING TO SELF, CONFUSED, ORIENTED TO PERSON ONLY. PT IS ON 4L OF O2 VIA NC SHOWING NO S/S OF RESP DISTRESS. BREATHING EVEN AND UNLABORED. ON CBX OPERATOR SHOWING CONTROLLED A-FIB. IV ACCESS NOTED ON RIGHT FA #22. D5NS RUNNING AT 40 ML/HR. PT TOLERATING WELL.. PT KEPT CLEAN AND COMFORTABLE. ALL SAFETY MEASURES IMPLEMENTED. CALL LIGHT WITHIN REACH. BED ALARM ON. BED LOCKED AND IN LOWEST POSITION. SIDE RAILS UP. WILL ENDORSE TO MORNING SHIFT RN FOR SRIDHAR.
[2021-04-24 08:00] VITALS: BP 186/69
--- NOTE | 2021-04-24 08:30 | NUR ---
RN NOTE- IV TO RT ARM INFILTRATED. REMOVED IV AFTER STOPPING INFUSION. DR TRAN ORDERED MIDLINE. AWAITING MIDLINE INSERTION. IV RX HELD PENDING
[2021-04-24 08:33] LABS: BASOPHILS % (AUTO) 0.1 % (0.0-2.0); HEMATOCRIT 36 % (39-51); HEMOGLOBIN 11.1 g/dL (13.5-17.5); LYMPHOCYTES # (AUTO) 0.7 K/uL (0.8-4.8); LYMPHOCYTES % (AUTO) 5.9 % (20.0-44.0); MEAN CORPUSCULAR HGB CONC 31 g/dl (31.0-36.0); MEAN CORPUSCULAR VOLUME 88 fL (80-96); MONOCYTES # (AUTO) 0.9 K/uL (0.1-1.30); MONOCYTES % (AUTO) 7.7 % (2.0-12.0); NEUTROPHILS # (AUTO) 10.5 K/uL (1.8-8.9); NEUTROPHILS % (AUTO) 86.3 % (43.0-81.0); PLATELET COUNT (AUTO) 339 K/uL (150-450); RED BLOOD CELL COUNT(AUTO) 4.08 MIL/uL (4.5-6.0); WHITE BLOOD COUNT (AUTO) 12.2 K/uL (4.3-11.0)
[2021-04-24 08:58] LABS: CARBON DIOXIDE 23 mmol/L (21-32); CHLORIDE 112 mmol/L (98-107); CREATININE 1.4 mg/dL (0.6-1.3); GLUCOSE 174 mg/dL (74-106); POTASSIUM 3.8 mmol/L (3.5-5.1); SODIUM SERUM 147 mmol/L (136-145); UREA NITROGEN, BLOOD 75 mg/dL (7-18)
[2021-04-24] MEDS: MEROPENEM 1 G in IV NS 0.9% 100 ML IV SCH ×2 (09:00→21:26)
[2021-04-24] MEDS: DOXYCYCLINE 100 MG in IV D5W 100 ML IV SCH ×2 (09:00→21:59)
[2021-04-24] MEDS: DEXAMETHASONE SOD PHOSPHATE 10 MG/ML VIAL IV SCH (09:00)
[2021-04-24] MEDS: ASPIRIN 81 MG TAB.CHEW PO SCH (09:35)
[2021-04-24] MEDS: CARVEDILOL 3.125 MG TABLET PO SCH ×2 (09:36→20:34)
[2021-04-24 12:00] VITALS: BP 167/84
[2021-04-24 16:00] VITALS: BP 182/85
--- NOTE | 2021-04-24 16:05 | NUR ---
RN NOTE- MILLI MIDLINE PLACED AT THIS TIME BY GRAYSON VITALE. IVF RESTARTED
--- NOTE | 2021-04-24 16:59 | NUR ---
RN NOTE- BP- 180/105. APRESOLINE IV NOT AVAILABLE IN PHARMACY. DR TRAN ORDERED CLONIDINE 0.1MG Q6H PRN SBP > 150 AND NIFEDIPINE XR 30 MG PO QD
[2021-04-24] MEDS: CLONIDINE HCL 0.1 MG TABLET PO PRN (17:17)
--- NOTE | 2021-04-24 18:08 | NUR ---
RN NOTE- RECHECK BP- 186/107. DR TRAN NOTIFIED
[2021-04-24] MEDS ORDERED: CLONIDINE HCL 0.1 MG TABLET PO STA (18:15)
--- NOTE | 2021-04-24 18:17 | NUR ---
RN NOTE- DR TRAN ORDERED CLONIDINE 0.2MG PO ONCE STAT
--- NOTE | 2021-04-24 18:39 | NUR ---
RN CLOSING NOTE- PT BP STILL HIGH. WILL RECHECK. CLONIDINE 0.2 MG GIVEN. IVF TO LUAS MIDLINE D5NS AT 40ML /HR . SATS ARE 97% ON 3LPM VIA NC. BILATERAL WRIST RESTRAINTS IN PLACE FOR SAFETY . BED LOCKED CALL LIGHT IN REACH . MONITOR / ASSIST
--- NOTE | 2021-04-24 18:56 | NUR ---
RN NOTE- BP- 177/88
--- NOTE | 2021-04-24 19:45 | NUR ---
RN NOTE PT RECEIVED IN BED. PT IS ON 4L OF O2 VIA NC SHOWING NO S/S OF RESP DISTRESS. BREATHING EVEN AND UNLABORED. PT IS CURRENTLY LETHARGIC. ON GLASS PRODUCTS INSPECTOR SHOWING SB. ON CARDIAC DIET. IV ACCESS NOTED ON LEFT UPPER ARM MIDLINE. LINE FLUSHED, PATENT, AND INTACT WITH NO SIGNS OF INFILTRATION. D5NS RUNNING AT 40 ML/HR. ALL SAFETY MEASURES IMPLEMENTED. CALL LIGHT WITHIN REACH. BED ALARM ON. BED LOCKED AND IN LOWEST POSITION. SIDE RAILS UP. WILL CONTINUE TO MONITOR AND ASSESS FOR ANY CHANGES DURING SHIFT.
[2021-04-24 20:00] VITALS: BP 134/77
--- NOTE | 2021-04-24 20:10 | NUR ---
RN NOTE RESTRAINT ORDER COMPLETED. WILL CONTINUE TO MONITOR AND RE-ASSESS FOR ANY CHANGES.
--- NOTE | 2021-04-24 20:14 | NUR ---
RN NOTE SPOKE WITH DR. PEREZ AND INFORMED OF PT HR FLUCTUATING BETWEEN 50S AND HIGH 30S. INFORMED THAT DAY SHIFT JUST GAVE PATIENT 0.3MG OF CLONIDINE AND DR. PEREZ MENTIONED LOW HR IS MOST LIKELY CAUSED BY CLONIDINE. DR. PEREZ SAID TO CLOSELY MONITOR PATIENT AND CALL BACK IF LOW HR IS SUSTAINED. ORDER NOTED AND CARRIED OUT. WILL CLOSELY MONITOR PATIENT.
--- NOTE | 2021-04-24 20:35 | NUR ---
RN NOTE PT HEART RATE TOO LOW FOR ADMINISTRATION OF CARVEDILOL. WILL CONTINUE TO CLOSELY MONITOR.
[2021-04-24] MEDS: ATORVASTATIN 10 MG TABLET PO SCH (22:00)
--- NOTE | 2021-04-24 22:16 | NUR ---
RN NOTE PT VERY COLD, LETHARGIC, UNABLE TO OBTAIN TEMPERATURE. PT PLACED ON BEARHUGGER. WILL CONTINUE TO MONITOR AND ASSESS.
--- NOTE | 2021-04-24 22:16 | NUR ---
RN NOTE PT CURRENTLY LETHARGIC. UNABLE TO ADMINISTER LIPITOR. WILL CONTINUE TO MONITOR.
[2021-04-25] VITALS: BP 157/75
--- NOTE | 2021-04-25 01:10 | NUR ---
RN NOTE STILL UNABLE TO OBTAIN AXILLARY OR ORAL TEMPERATURE. TEMPERATURE TAKEN VIA RECTAL AND TEMPERATURE IS 94.1. PT NOW MORE ALERT AND NOT SHOWING ANY S/SX OF LETHARGY. WILL CONTINUE TO MONITOR AND RE-ASSESS TEMP.
--- NOTE | 2021-04-25 02:30 | NUR ---
RN NOTE PT HEART RATE BACK TO BASELINE OF 60s-80s WITH CONTROLLED A-FIB. WILL CONTINUE TO MONITOR.
[2021-04-25 04:00] VITALS: BP 108/84
--- NOTE | 2021-04-25 04:00 | NUR ---
RN NOTE PT TEMPERATURE NOW 96.5 VIA AXILLARY. WILL CONTINUE TO MONITOR.
--- NOTE | 2021-04-25 06:11 | NUR ---
RN NOTE PT TEMPERATURE NOW 98.2 VIA ORALLY. ZEUS LAY TAKEN OFF PATIENT. WILL CONTINUE TO MONITOR.
[2021-04-25 06:34] LABS: BASOPHILS % (AUTO) 0.1 % (0.0-2.0); HEMATOCRIT 33 % (39-51); HEMOGLOBIN 10.5 g/dL (13.5-17.5); LYMPHOCYTES # (AUTO) 0.8 K/uL (0.8-4.8); LYMPHOCYTES % (AUTO) 8.4 % (20.0-44.0); MEAN CORPUSCULAR HGB CONC 32 g/dl (31.0-36.0); MEAN CORPUSCULAR VOLUME 87 fL (80-96); MONOCYTES % (AUTO) 10.2 % (2.0-12.0); NEUTROPHILS # (AUTO) 8.2 K/uL (1.8-8.9); NEUTROPHILS % (AUTO) 81.3 % (43.0-81.0); PLATELET COUNT (AUTO) 317 K/uL (150-450); RED BLOOD CELL COUNT(AUTO) 3.78 MIL/uL (4.5-6.0)
--- NOTE | 2021-04-25 06:57 | NUR ---
RN NOTE PT NOW MUCH MORE ALERT. PT SHOWING NO MORE SIGNS OF LETHARGY. RECENT ORAL TEMPERATURE 98.2. BEAR HUGGER TAKEN OFF PATIENT. PT IS ON 4L OF O2 VIA NC SHOWING NO S/S OF RESP DISTRESS. BREATHING EVEN AND UNLABORED. PT IS ALERT AND ORIENTED X2. ON SMASH PIECER SHOWING CONTROLLED A-FIB IN HIGH 60S-80S. IV ACCESS NOTED ON LEFT UPPER ARM MIDLINE. LINE FLUSHED, PATENT, AND INTACT WITH NO SIGNS OF INFILTRATION. ALL DUE MEDS GIVEN ORDERED. PT KEPT CLEAN AND COMFORTABLE. ALL SAFETY MEASURES IMPLEMENTED. CALL LIGHT WITHIN REACH. BED ALARM ON. BED LOCKED AND IN LOWEST POSITION. SIDE RAILS UP. WILL ENDORSE TO MORNING SHIFT RN FOR SRIDHAR.
[2021-04-25 07:05] LABS: CALCIUM, SERUM 9.4 mg/dL (8.5-10.1); CREATININE 1.3 mg/dL (0.6-1.3); POTASSIUM 3.9 mmol/L (3.5-5.1)
--- NOTE | 2021-04-25 07:40 | NUR ---
RN OPEN NOTE RECEIVED PT IN BED ALERT AND ORIENTED X2 RESPONSIVE TO NAME AND TOUCH, PT IS ON 4L OF O2 VIA NC SHOWING NO S/S OF RESP DISTRESS. BREATHING EVEN AND UNLABORED. ON PIPE TESTER SHOWING CONTROLLED A-FIB IN HIGH 60S-80S. IV ACCESS NOTED ON LEFT UPPER ARM MIDLINE. FLUSHED, PATENT, AND INTACT WITH NO SIGNS OF INFILTRATION. ALL SAFETY MEASURES IMPLEMENTED. CALL LIGHT WITHIN REACH. BED ALARM ON. BED LOCKED AND IN LOWEST POSITION. SIDE RAILS UP. WILL CONTINUE TO MONITOR
[2021-04-25 08:00] VITALS: BP 114/71
[2021-04-25] MEDS: DOXYCYCLINE 100 MG in IV D5W 100 ML IV SCH ×2 (08:31→21:42)
[2021-04-25] MEDS: MEROPENEM 1 G in IV NS 0.9% 100 ML IV SCH ×2 (08:31→20:44)
[2021-04-25] MEDS: ASPIRIN 81 MG TAB.CHEW PO SCH (08:58)
[2021-04-25] MEDS: DEXAMETHASONE SOD PHOSPHATE 10 MG/ML VIAL IV SCH (08:59)
[2021-04-25] MEDS: NIFEdipine XL (30MG) 30 MG TAB PO SCH (08:59)
[2021-04-25] MEDS: CARVEDILOL 3.125 MG TABLET PO SCH ×2 (08:59→21:43)
[2021-04-25 09:31] LABS: ABG BASE EXCESS -2.6 mmol/L; ABG OXYGEN SATURATION 97.3 % (92.0-98.5); ABG PCO2 46.4 mmHg (35.0-45.0); ABG PH 7.323 (7.350-7.450); ABG PO2 103.5 mmHg (75.0-100.0); AaDO2 70.4 mmHg; COHb 0.1 % (0.5-1.5); MetHb 0.2 % (0.0-1.5); SITE, ABG Right Brachial; VENT MODE, BG Nasal Cannula
--- NOTE | 2021-04-25 10:00 | NUR ---
rn note pt placed on a finesse hugger temperature 36.2 will keep monitoring
[2021-04-25 12:00] VITALS: BP 132/40
--- NOTE | 2021-04-25 13:09 | NUR ---
RN NOTE PT IS VERY ALERT NOW AND TEMPERATURE IS BACK TO 97.6 WILL CONTINUE TO MONITOR
[2021-04-25 16:00] VITALS: BP 113/78
--- NOTE | 2021-04-25 18:20 | NUR ---
RN CLOSING NOTE PT REMAINS IN BED ALERT AND ORIENTED X2, PT IS ON OXYGEN 4L VIA NC SHOWING NO S/S OF RESP DISTRESS. BREATHING EVEN AND UNLABORED. ON VACUUM TANK TENDER SHOWING CONTROLLED A-FIB IN HIGH 60S-80S.IV ACCESS NOTED ON LEFT UPPER ARM MIDLINE. FLUSHED, PATENT, AND INTACT WITH NO SIGNS OF INFILTRATION. ALL SAFETY MEASURES IMPLEMENTED. CALL LIGHT WITHIN REACH. BED ALARM ON. BED LOCKED AND IN LOWEST POSITION. SIDE RAILS UP. WILL CONTINUE TO MONITOR Addendum: 04/25/21 at 1821 by BIRD MOORE RN WILL ENDORSE TO CLINICAL RNCASE FINISHING MACHINE ADJUSTER
--- NOTE | 2021-04-25 19:35 | NUR ---
RN OPENING NOTE RECEIVED PT IN BED A/O X2. PT IS ON OXYGEN 4L VIA NC SHOWING NO S/S OF RESP DISTRESS. BREATHING EVEN AND UNLABORED. ON MARBLE CUTTER SHOWING CONTROLLED A-FIB IN HIGH 60S-80S.IV ACCESS LEFT UPPER ARM MIDLINE, INTACT AND PATENT. SAFETY PRECAUTIONS MAINTAINED. BED IN LOWEST LOCKED POSITION, HOB ELEVATED, SIDE RAILS UP X2, BED ALARM ON, AND CALL LIGHT AND TABLE WITHIN REACH. WILL CONTINUE WITH PLAN OF CARE.
[2021-04-25 20:00] VITALS: BP 155/71
[2021-04-25] MEDS: ATORVASTATIN 10 MG TABLET PO SCH (21:42)
[2021-04-25] MEDS: CLONIDINE HCL 0.1 MG TABLET PO PRN (23:34)
--- NOTE | 2021-04-25 23:34 | NUR ---
RN NOTE PT BLOOD PRESSURE WAS 173/67. ADMINISTERED CLONIDINE 0.1 MG ORDERED FOR SBP OVER 150. WILL CONTINUE TO MONITOR.
[2021-04-26] VITALS: BP 173/67
[2021-04-26 04:00] VITALS: BP 140/58
--- NOTE | 2021-04-26 06:43 | NUR ---
RN CLOSING NOTE PT AWAKE IN BED A/O X2. PT IS ON OXYGEN 4L VIA NC SHOWING NO S/S OF RESP DISTRESS. BREATHING EVEN AND UNLABORED. 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 IV ACCESS LEFT UPPER ARM MIDLINE, INTACT AND PATENT. ALL NEEDS MET AT THIS TIME. SAFETY PRECAUTIONS MAINTAINED AT ALL TIMES. BED IN LOWEST LOCKED POSITION, HOB ELEVATED, SIDE RAILS UP X2, BED ALARM ON, AND CALL LIGHT AND TABLE WITHIN REACH. WILL ENDORSE TO ONCOMING NURSE FOR SRIDHAR.
[2021-04-26 06:49] LABS: BASOPHILS # (AUTO) 0.1 K/uL (0.0-0.2); BASOPHILS % (AUTO) 0.8 % (0.0-2.0); EOSINOPHILS % (AUTO) 0.8 % (0.0-6.0); HEMATOCRIT 34 % (39-51); HEMOGLOBIN 10.3 g/dL (13.5-17.5); LYMPHOCYTES # (AUTO) 0.6 K/uL (0.8-4.8); MEAN CORPUSCULAR HGB CONC 31 g/dl (31.0-36.0); MEAN CORPUSCULAR VOLUME 89 fL (80-96); MONOCYTES # (AUTO) 0.8 K/uL (0.1-1.30); MONOCYTES % (AUTO) 7.5 % (2.0-12.0); NEUTROPHILS # (AUTO) 8.6 K/uL (1.8-8.9); NEUTROPHILS % (AUTO) 84.9 % (43.0-81.0); PLATELET COUNT (AUTO) 307 K/uL (150-450); RED BLOOD CELL COUNT(AUTO) 3.75 MIL/uL (4.5-6.0); WHITE BLOOD COUNT (AUTO) 10.1 K/uL (4.3-11.0)
[2021-04-26 07:01] LABS: CALCIUM, SERUM 10.1 mg/dL (8.5-10.1); CREATININE 1.3 mg/dL (0.6-1.3); POTASSIUM 4.4 mmol/L (3.5-5.1)
--- NOTE | 2021-04-26 07:40 | NUR ---
RN OPEN NOTE PT RECEIVED AWAKE IN BED A/O X2. PT IS ON OXYGEN 3L VIA NC SHOWING NO S/S OF RESP DISTRESS. BREATHING EVEN AND UNLABORED. 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 SOFT RESTRAINT NOTE, SAFETY PRECAUTIONS MAINTAINED AT ALL TIMES. BED IN LOWEST AND LOCKED POSITION, HOB ELEVATED, SIDE RAILS UP X2, BED ALARM ON, AND CALL LIGHT AND TABLE WITHIN REACH. WILL CONTINUE TO MONITOR
[2021-04-26 08:00] VITALS: BP 126/60
[2021-04-26] MEDS: NIFEdipine XL (30MG) 30 MG TAB PO SCH (09:05)
[2021-04-26] MEDS: CARVEDILOL 3.125 MG TABLET PO SCH ×2 (09:05→21:46)
[2021-04-26] MEDS: ASPIRIN 81 MG TAB.CHEW PO SCH (09:05)
[2021-04-26] MEDS: DEXAMETHASONE SOD PHOSPHATE 10 MG/ML VIAL IV SCH (09:06)
[2021-04-26] MEDS: DOXYCYCLINE 100 MG in IV D5W 100 ML IV SCH ×2 (09:06→21:47)
[2021-04-26] MEDS: MEROPENEM 1 G in IV NS 0.9% 100 ML IV SCH ×2 (09:06→20:35)
[2021-04-26 12:00] VITALS: BP 108/39
--- NOTE | 2021-04-26 12:00 | NUR ---
RN NOTE PT OS AWAKE AND VERY ANXIOUS TRYING TO GET OUT OF BED SOFT BILATERAL WRIST RESTRAINT IN PLACE SAFETY MEASURES IMPLEMENTED WILL CONTINUE TO MONITOR
[2021-04-26] MEDS ORDERED: PHYTONADIONE INJ 10 MG/1 ML AMPUL SQ ONE (14:30)
[2021-04-26 16:00] VITALS: BP 116/60
[2021-04-26 16:07] LABS: ALBUMIN 2.5 g/dL (3.4-5.0)
[2021-04-26 16:20] LABS: THYROID STIMULATING HORMONE 0.253 uIU/mL (0.358-3.74)
[2021-04-26 16:35] LABS: D-DIMER 0.75 mg/L(FEU (0.17-0.50)
--- NOTE | 2021-04-26 18:35 | NUR ---
RN CLOSING NOTE PT RECEIVED AWAKE IN BED A/O X2. PT IS ON OXYGEN 3L VIA NC SHOWING NO S/S OF RESP DISTRESS. BREATHING EVEN AND UNLABORED. 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 SOFT RESTRAINT IN PLACE, SAFETY PRECAUTIONS MAINTAINED AT ALL TIMES. BED IN LOWEST AND LOCKED POSITION, HOB ELEVATED, SIDE RAILS UP X2, BED ALARM ON, AND CALL LIGHT AND TABLE WITHIN REACH. WILL CONTINUE TO MONITOR Addendum: 04/26/21 at 1836 by BIRD MOORE RN WILL ENDORSE TO FORESTRY AIDECONVENTION SERVICES MANAGER
--- NOTE | 2021-04-26 19:25 | NUR ---
RN OPEN NOTES RECEIVED CARE OF PT WHILE AWAKE IN BED A/O X2. PT IS ON OXYGEN 3L VIA NC SHOWING NO S/S OF RESP DISTRESS, O2 SAT IS 95% AT THIS TIME, BREATHING EVEN AND UNLABORED. 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 SOFT RESTRAINT NOTED, SAFETY PRECAUTIONS MAINTAINED AT ALL TIMES. APPROPRIATE ISOLATION PRECAUTIONS PUT IN PLACE. BED IN LOWEST AND LOCKED POSITION, HOB ELEVATED, SIDE RAILS UP X2, BED ALARM ON, AND CALL LIGHT AND TABLE WITHIN REACH. WILL CONTINUE TO MONITOR FOR ANY CHANGES.
[2021-04-26 20:00] VITALS: BP 110/64
[2021-04-26] MEDS: IV D5W 1,000 ML IV PRN (20:04)
[2021-04-26] MEDS: ATORVASTATIN 10 MG TABLET PO SCH (21:47)
[2021-04-27] VITALS: BP 146/84
[2021-04-27 04:00] VITALS: BP 108/87
[2021-04-27 06:46] LABS: BASOPHILS % (AUTO) 0.2 % (0.0-2.0); HEMATOCRIT 29 % (39-51); LYMPHOCYTES # (AUTO) 0.8 K/uL (0.8-4.8); LYMPHOCYTES % (AUTO) 7.6 % (20.0-44.0); MEAN CORPUSCULAR HGB CONC 31 g/dl (31.0-36.0); MEAN CORPUSCULAR VOLUME 88 fL (80-96); MONOCYTES # (AUTO) 0.9 K/uL (0.1-1.30); MONOCYTES % (AUTO) 8.4 % (2.0-12.0); NEUTROPHILS # (AUTO) 9.3 K/uL (1.8-8.9); NEUTROPHILS % (AUTO) 83.8 % (43.0-81.0); PLATELET COUNT (AUTO) 292 K/uL (150-450); RED BLOOD CELL COUNT(AUTO) 3.27 MIL/uL (4.5-6.0); WHITE BLOOD COUNT (AUTO) 11.2 K/uL (4.3-11.0)
--- NOTE | 2021-04-27 06:51 | NUR ---
RN CLOSING NOTES WILL ENDORSE CARE OF PT WHILE ASLEEP IN BED, BUT WAKES UP TO NAME, A/O X2. PT IS ON OXYGEN 3L VIA NC SHOWING NO S/S OF RESP DISTRESS, O2 SAT IS 96% AT THIS TIME, BREATHING EVEN AND UNLABORED. ON ENAMEL SPRAYER SHOWING CONTROLLED A-FIB, IV ACCESS LEFT UPPER ARM MIDLINE, INTACT AND PATENT. SOFT RESTRAINT NOTED, SAFETY PRECAUTIONS MAINTAINED AT ALL TIMES. APPROPRIATE ISOLATION PRECAUTIONS PUT IN PLACE. BED IN LOWEST AND LOCKED POSITION, HOB ELEVATED, SIDE RAILS UP X2, BED ALARM ON, AND CALL LIGHT AND TABLE WITHIN REACH. ALL DUE MEDS GIVEN, ALL NEEDS ATTENDED TO. NO SIGNIFICANT FINDINGS UPON ALL NURSING ASSESSMENTS. WILL ENDORSE TO AM NURSE FOR SRIDHAR.
--- NOTE | 2021-04-27 07:04 | NUR ---
RN OPENING NOTE RECEIVE REPORT FROM REDUCING MACHINE OPERATOR NURSE. PATIENT IN STABLE CONDITION WITH NO SIGN OF DISTRESS. RESTING COMFORTABLE IN BED. CURRENTLY ON NC AT 3L/MIN. A/O X2. MILLI MIDLINE RUNNING D5W @ 75ML/HR. PROPER ISOLATION PRECAUTION IN PLACE. ALL SAFETY MEASURE IN PLACE. BED ON LOWEST POSITION WITH HOB ELEVATED AND 3 SIDE RAIL UP. CALL LIGHT WITHIN REACH. WILL CONTINUE TO MONITOR.
[2021-04-27 07:21] LABS: CALCIUM, SERUM 9.5 mg/dL (8.5-10.1); CREATININE 1.3 mg/dL (0.6-1.3); POTASSIUM 4.3 mmol/L (3.5-5.1)
[2021-04-27 08:00] VITALS: BP 159/54
[2021-04-27] MEDS: ENSURE ENLIVE 237 ML LIQUID (VANILLA) PO SCH ×2 (08:00→13:00)
[2021-04-27] MEDS: DEXAMETHASONE SOD PHOSPHATE 10 MG/ML VIAL IV SCH (09:04)
[2021-04-27] MEDS: NIFEdipine XL (30MG) 30 MG TAB PO SCH (09:04)
[2021-04-27] MEDS: CARVEDILOL 3.125 MG TABLET PO SCH ×2 (09:05→21:33)
[2021-04-27] MEDS: MEROPENEM 1 G in IV NS 0.9% 100 ML IV SCH ×2 (09:06→21:34)
[2021-04-27 09:07] LABS: IMMUNOGLOBULIN A, SERUM 197 mg/dL (61-437); IMMUNOGLOBULIN G, SERUM 1398 mg/dL (603-1613); IMMUNOGLOBULIN M, SERUM 45 mg/dL (15-143)
[2021-04-27] MEDS: DOXYCYCLINE 100 MG in IV D5W 100 ML IV SCH ×2 (09:07→22:26)
[2021-04-27 12:00] VITALS: BP 141/40
[2021-04-27 13:06] LABS: *SPE A/G RATIO 0.9 (0.7-1.7); *SPE ALPHA-1-GLOBULIN 0.2 g/dL (0.0-0.4); *SPE ALPHA-2-GLOBULIN 0.5 g/dL (0.4-1.0); *SPE BETA GLOBULIN 0.7 g/dL (0.7-1.3); *SPE M-SPIKE 0.3 g/dL (Not Observed)
[2021-04-27 16:00] VITALS: BP 119/57
--- NOTE | 2021-04-27 19:03 | NUR ---
RN CLOSING NOTE PATIENT REMAIN IN STABLE CONDITION WITH NO SIGN OF DISTRESS THROUGH OUT SHIFT. A/O X2. CARDIAC RHYTHM SHOWS AFIB. MILLI MIDLINE RUNNING D5W @75ML/HR. PROPER ISOLATION PROTOCOL IN PLACE. ALL SAFETY MEASURE IN PLACE. BED ON LOWEST POSITION WITH HOB ELEVATED AND 3 SIDE RIAL UP. CALL LIGHT WITHIN REACH. WILL CONTINUE TO MONITOR AN ENDORSE TO CROSSING SUPERVISOR NURSE.
[2021-04-27 20:00] VITALS: BP 132/53
--- NOTE | 2021-04-27 20:04 | NUR ---
RN NOTE RECEIVED PATIENT IN BED, SLEEPING, AROUSABLE TO NAME AND TOUCH. AOX2. BREATHING EVEN AND UNLABORED. ON 3L/MIN OXYGEN VIA NASAL CANNULA. TOLERATING WELL. HOB ELEVATED 30 DEGREES. ON TELE MONITORING. NOTED WITH A-FIB AT 67 BPM. DENIES CHEST PAIN. SKIN WARM AND DRY. NO BLEEDING AT THIS TIME. NOTED WITH LEFT UPPER ARM MIDLINE. RUNNING D5W AT 75 CC/HR. NO INFILTRATION NOTED. BED LOW, IN LOCKED POSITION. CALL LIGHT WITHIN REACH.
--- NOTE | 2021-04-27 20:07 | NUR ---
RN NOTE PATIENT ALSO NOTED WITH BILATERAL SOFT WRIST RESTRAINTS. 2 FINGER SPACE OBSERVED. CAPILLARY REFILL WNL. WILL CONTINUE TO MONITOR.
[2021-04-27] MEDS: ATORVASTATIN 10 MG TABLET PO SCH (21:34)
[2021-04-27] MEDS: IV D5W 1,000 ML IV PRN (21:38)
[2021-04-28] VITALS: BP 138/85
--- NOTE | 2021-04-28 02:31 | NUR ---
ENDORSEMENT TO MARCIA BAIRD FOR SRIDHAR
--- NOTE | 2021-04-28 02:35 | NUR ---
CHANGE OF CARE: RECEIVED REPORT. NO CHANGE IN CONDITION. PATIENT STABLE AT THIS TIME.
[2021-04-28 04:00] VITALS: BP 146/56
--- NOTE | 2021-04-28 04:36 | NUR ---
RN NOTE: URINE SPECIMEN OBTAINED VIA CONDOM CATH. SAMPLE CLEAR YELLOW IN APPEARANCE. PLACED IN LAB REFRIGERATOR. LAB TOOL SETTER PENDING.
--- NOTE | 2021-04-28 06:52 | NUR ---
RN CLOSING NOTE: PATIENT IN BED, EYES CLOSED. EASILY AROUSED BY GENTLE TOUCH. ALERT AND ORIENTED TO PERSON AND TIME. PATIENT EXPERIENCES INTERMITTENT LABORED BREATHING, BUT IN NAD AND VSS AT THIS TIME. NC IN PLACE @4LPM. INTERMITTENT MOIST, NON-PRODUCTIVE COUGH NOTED. BILATERAL SOFT WRIST RESTRAINTS IN PLACE WITH TRIAL RELEASE PER PROTOCOL. PATIENT CONTINUES TO PULL AT LINES AND CANNULA. MILLI MIDLINE IN PLACE INFUSING FLUIDS PER MD ORDER WITHOUT S/SX OF COMPLICATION. NO ERYTHEMA/INFILTRATION OBSERVED TO OR SURROUNDING IV INSERTION SITE, DRESSING CDI. BED IN LOW, LOCKED POSITION, SIDE RAILS UP X2. CALL LIGHT WITH REACH.
[2021-04-28 07:20] LABS: BASOPHILS % (AUTO) 0.1 % (0.0-2.0); EOSINOPHILS % (AUTO) 0.1 % (0.0-6.0); HEMATOCRIT 24 % (39-51); HEMOGLOBIN 7.6 g/dL (13.5-17.5); LYMPHOCYTES # (AUTO) 0.7 K/uL (0.8-4.8); LYMPHOCYTES % (AUTO) 7.2 % (20.0-44.0); MEAN CORPUSCULAR HGB CONC 31 g/dl (31.0-36.0); MEAN CORPUSCULAR VOLUME 89 fL (80-96); MONOCYTES # (AUTO) 0.8 K/uL (0.1-1.30); MONOCYTES % (AUTO) 7.7 % (2.0-12.0); NEUTROPHILS # (AUTO) 8.8 K/uL (1.8-8.9); NEUTROPHILS % (AUTO) 84.9 % (43.0-81.0); PLATELET COUNT (AUTO) 258 K/uL (150-450); RED BLOOD CELL COUNT(AUTO) 2.75 MIL/uL (4.5-6.0); WHITE BLOOD COUNT (AUTO) 10.4 K/uL (4.3-11.0)
[2021-04-28 07:27] LABS: CALCIUM, SERUM 8.8 mg/dL (8.5-10.1); CREATININE 1.2 mg/dL (0.6-1.3); POTASSIUM 4.2 mmol/L (3.5-5.1)
--- NOTE | 2021-04-28 07:47 | NUR ---
RN OPENING NOTES PATIENT IS AWAKE IN BED RESTING, A/O X1. NO S/S OF PAIN NOTED AT THIS TIME. ON 4L OXYGEN VIA NC, NO DISTRESS OR SHORTNESS OF BREATH NOTED. IV ACCESS MILLI MIDLINE, INTACT AND PATENT, FLUSHING WELL. PATIENT HAVE EXTERNAL INFORMATION SECURITY SYSTEMS INSTRUCTOR WITH CURRENT READING OF A-FIB CONTROLLED, NO CARDIAC DISTRESS NOTED. FALL AND SAFETY MEASURES IN PLACE, BED ALARM ON, BED IN LOW AND LOCK POSITION, CALL LIGHT AND TABLE WITHIN EASY REACH, SIDE RAIL UP X2. WILL CONTINUE TO MONITOR.
[2021-04-28 08:00] VITALS: BP 176/66
[2021-04-28] MEDS: NIFEdipine XL (30MG) 30 MG TAB PO SCH (10:01)
[2021-04-28] MEDS: DEXAMETHASONE SOD PHOSPHATE 10 MG/ML VIAL IV SCH (10:01)
[2021-04-28] MEDS: CARVEDILOL 3.125 MG TABLET PO SCH ×2 (10:02→21:00)
[2021-04-28] MEDS: IV D5W 1,000 ML IV PRN ×2 (10:20→21:06)
[2021-04-28] MEDS: ENSURE ENLIVE 237 ML LIQUID (VANILLA) PO SCH ×2 (10:21→12:52)
[2021-04-28 12:00] VITALS: BP 124/68
[2021-04-28 16:00] VITALS: BP 144/54
--- NOTE | 2021-04-28 19:06 | NUR ---
RN CLOSING NOTES PATIENT IS AWAKE IN BED RESTING, A/O X1. NO S/S OF PAIN NOTED AT THIS TIME. ON 4L OXYGEN VIA NC, NO DISTRESS OR SHORTNESS OF BREATH NOTED. IV ACCESS MILLI MIDLINE, INTACT AND PATENT, FLUSHING WELL. PATIENT HAVE EXTERNAL BLEACH PLANT OPERATOR WITH CURRENT READING OF A-FIB CONTROLLED, NO CARDIAC DISTRESS NOTED. SCHEDULE MEDS ADMINISTERED. FALL AND SAFETY MEASURES IN PLACE, BED ALARM ON, BED IN LOW AND LOCK POSITION, CALL LIGHT AND TABLE WITHIN EASY REACH, SIDE RAIL UP X2. WILL ENDORSE TO INTENSIVE CARE AMBULANCE PARAMEDIC..
--- NOTE | 2021-04-28 19:30 | NUR ---
RN OPENING NOTE PATIENT IN BED, A/O X 1-2 YELLING. PATIENT REORIENTED PATIENT ABOUT PLACE AND TIME. ABLE TO MAKE NEEDS KNOWN, CONFUSED. PATIENT IS ON 3LPM, TOLERATING WELL. PATIENT IS ON TELE MONITOR, CONTROLLED AFIB. PATIENT IS CURRENTLY ON BILATERAL SOFT WRIST RESTRAINTS, NO SIGNS OF INJURY AT THIS TIME. PATIENT HAS A MILLI MIDLINE D5W AT 100 ML/HR. SAFETY MEASURES IN PLACE: BED LOCKED AND IN LOWEST POSITION, CALL LIGHT WITHIN REACH, SIDE RAILS UP. WILL MONITOR PATIENT CLOSELY. ISOLATION PRECAUTIONS IN PLACE.
[2021-04-28 20:00] VITALS: BP 150/53
[2021-04-28] MEDS: ATORVASTATIN 10 MG TABLET PO SCH (21:02)
[2021-04-29] VITALS: BP 147/43
[2021-04-29 04:00] VITALS: BP 138/39
[2021-04-29] MEDS: IV D5W 1,000 ML IV PRN (06:25)
[2021-04-29 06:43] LABS: BASOPHILS % (AUTO) 0.1 % (0.0-2.0); EOSINOPHILS % (AUTO) 0.1 % (0.0-6.0); HEMATOCRIT 25 % (39-51); HEMOGLOBIN 7.8 g/dL (13.5-17.5); LYMPHOCYTES # (AUTO) 0.8 K/uL (0.8-4.8); LYMPHOCYTES % (AUTO) 7.8 % (20.0-44.0); MEAN CORPUSCULAR HGB CONC 31 g/dl (31.0-36.0); MEAN CORPUSCULAR VOLUME 89 fL (80-96); MONOCYTES # (AUTO) 0.8 K/uL (0.1-1.30); MONOCYTES % (AUTO) 7.2 % (2.0-12.0); NEUTROPHILS % (AUTO) 84.8 % (43.0-81.0); PLATELET COUNT (AUTO) 283 K/uL (150-450); RED BLOOD CELL COUNT(AUTO) 2.83 MIL/uL (4.5-6.0); WHITE BLOOD COUNT (AUTO) 10.6 K/uL (4.3-11.0)
--- NOTE | 2021-04-29 06:59 | NUR ---
RN CLOSING NOTE PATIENT IN BED, A/O X 1-2 YELLING. PATIENT REORIENTED PATIENT ABOUT PLACE AND TIME. ABLE TO MAKE NEEDS KNOWN. PATIENT KICKS AND SWINGS ARMS WELL WHEN BEING CHANGED. PATIENT IS ON 3LPM, TOLERATING WELL. PATIENT IS ON TELE MONITOR, CONTROLLED AFIB 62 BPM. PATIENT IS CURRENTLY ON BILATERAL SOFT WRIST RESTRAINTS, NO SIGNS OF INJURY THROUGHOUT THE SHIFT PATIENT HAS A MILLI MIDLINE D5W AT 100 ML/HR. SAFETY MEASURES IN PLACE: BED LOCKED AND IN LOWEST POSITION, CALL LIGHT WITHIN REACH, SIDE RAILS UP. ISOLATION PRECAUTIONS IN PLACE. ALL NEEDS MET AND ATTENDED. ALL ORDERS CARRIED OUT. WILL ENDORSE TO DAY SHIFT NURSE FOR SRIDHAR.
--- NOTE | 2021-04-29 07:23 | NUR ---
RN OPENING NOTES; PT IN BED RESTING. A/OX1, NO SIGNS OF SOB OR DISTRESS AT THIS TIME. PT ON 3L VIA NC SATING AT 98%. SOFT RESTRAINTS NOTED, NEEDS TO BE RENEWED 04/30/21 AT 0211. MILLI ML NOTED RUNNING D5W @100ML/HR. FLUSHED, PATENT WITH NO SIGNS ON INFILTRATION. ALL SAFETY MEASURES RENDERED, BED LOCKED IN LOWEST POS. SIDE RAILS X3 WITH CALL LIGHT WITHIN REACH. WILL CONTINUE TO MONITOR.
[2021-04-29 07:30] LABS: CREATININE 1.1 mg/dL (0.6-1.3); POTASSIUM 4.2 mmol/L (3.5-5.1)
[2021-04-29 08:00] VITALS: BP 113/85
[2021-04-29] MEDS: ENSURE ENLIVE 237 ML LIQUID (VANILLA) PO SCH ×2 (08:22→12:01)
[2021-04-29] MEDS: DEXAMETHASONE SOD PHOSPHATE 10 MG/ML VIAL IV SCH (08:24)
[2021-04-29] MEDS: NIFEdipine XL (30MG) 30 MG TAB PO SCH (08:25)
[2021-04-29] MEDS: CARVEDILOL 3.125 MG TABLET PO SCH ×2 (08:25→21:09)
[2021-04-29] MEDS: IV D5W 1,000 ML IV SCH (10:03)
--- NOTE | 2021-04-29 11:22 | NUR ---
RN NOTES; CMM INSPECTOR ATTEMPTED TO DRAW BLOOD. PT STARTED YELLING, "GET AWAY FROM ME YOU FUCKING BASTARD." RN EDUCATED PT REGARDING THE NEED TO DRAW LABS. PT RESPONDED WITH "I DON'T FUCKING CARE, GET AWAY FROM ME, I REFUSE." CMM INSPECTOR SAID SHE WILL TRY AGAIN LATER. WILL CONTINUE TO EDUCATE PT.
[2021-04-29 12:00] VITALS: BP 98/66
[2021-04-29 16:00] VITALS: BP 96/46
--- NOTE | 2021-04-29 18:42 | NUR ---
RN CLOSING NOTES; PT IN BED IN SUPINE POS RESTING. PT A/OX1, PT HAS EPISODES OF AGITATION AND REFUSING TREATMENT. PT REFUSED LABS THIS MORNING. MILLI ML RUNNING D5W @75ML/HR. FLUSHED, PATENT AND RUNNING WELL. ALL MEDICATIONS GIVEN AND TOLERATED WELL. ALL SAFETY MEASURES RENDERED, BED LOCKED IN LOWEST POS. SIDERAILSX3, WITH CALL LIGHT WITHIN REACH. NO SIGNIFICANT CHANGES IN PT HEALTH STATUS DURING SHIFT. WILL ENDORSE TO COST AND RISK ANALYSIS MANAGER RN.
--- NOTE | 2021-04-29 19:25 | NUR ---
RN NOTE PT RECEIVED IN BED. PT IS ON 3L OF O2 VIA NC SHOWING NO S/S OF RESP DISTRESS. BREATHING EVEN AND UNLABORED. ON VIDEO SYSTEMS ENGINEER SHOWING CONTROLLED A-FIB. ON CARDIAC DIET. IV ACCESS NOTED ON LEFT UPPER ARM MIDLINE. LINE FLUSHED, PATENT, AND INTACT WITH NO SIGNS OF INFILTRATION. D5W RUNNING AT 75 ML/HR. ALL SAFETY MEASURES IMPLEMENTED. CALL LIGHT WITHIN REACH. BED ALARM ON. BED LOCKED AND IN LOWEST POSITION. SIDE RAILS UP. WILL CONTINUE TO MONITOR AND ASSESS FOR ANY CHANGES DURING SHIFT.
[2021-04-29 20:00] VITALS: BP 153/54
[2021-04-29] MEDS: ATORVASTATIN 10 MG TABLET PO SCH (21:09)
[2021-04-30] VITALS: BP 149/41
[2021-04-30] MEDS: IV D5W 1,000 ML IV SCH ×2 (00:14→12:47)
[2021-04-30 04:00] VITALS: BP 130/61
--- NOTE | 2021-04-30 06:43 | NUR ---
RN NOTE NO SIGNIFICANT CHANGES IN PT CONDITION DURING SHIFT. PT WAS HYPOTHERMIC DURING BEGINNING OF SHIFT, BEAR HUGGER WAS PUT ON PATIENT AND RECENT TEMPERATURE VIA ORALLY WAS 97.7. BEAR HUGGER NOW TAKEN OFF PATIENT. PT IS ON 3L OF O2 VIA NC SHOWING NO S/S OF RESP DISTRESS. BREATHING EVEN AND UNLABORED. IV ACCESS NOTED ON LEFT UPPER ARM MIDLINE. LINE FLUSHED, PATENT, AND INTACT WITH NO SIGNS OF INFILTRATION. ALL DUE MEDS GIVEN ORDERED. PT KEPT CLEAN AND COMFORTABLE. ALL SAFETY MEASURES IMPLEMENTED. CALL LIGHT WITHIN REACH. BED ALARM ON. BED LOCKED AND IN LOWEST POSITION. SIDE RAILS UP. WILL ENDORSE TO MORNING SHIFT RN FOR SRIDHAR.
[2021-04-30 07:37] LABS: CALCIUM, SERUM 8.9 mg/dL (8.5-10.1); POTASSIUM 4.1 mmol/L (3.5-5.1)
--- NOTE | 2021-04-30 07:46 | NUR ---
RN OPEN NOTE PT RECEIVED IN BED ALERT AND ORIENTED X2, PT IS ON 3L OF O2 VIA NC SHOWING NO S/S OF RESP DISTRESS. BREATHING EVEN AND UNLABORED. IV ACCESS NOTED ON LEFT UPPER ARM MIDLINE. LINE FLUSHED, PATENT, AND INTACT WITH NO SIGNS OF INFILTRATION. ALL SAFETY MEASURES IMPLEMENTED. CALL LIGHT WITHIN REACH. BED ALARM ON. BED LOCKED AND IN LOWEST POSITION. SIDE RAILS UP. WILL CONTINUE TO MONITOR
[2021-04-30 07:52] LABS: BASOPHILS % (AUTO) 0.2 % (0.0-2.0); EOSINOPHILS % (AUTO) 0.1 % (0.0-6.0); HEMATOCRIT 26 % (39-51); MEAN CORPUSCULAR HGB CONC 31 g/dl (31.0-36.0); MEAN CORPUSCULAR VOLUME 88 fL (80-96); MONOCYTES # (AUTO) 0.9 K/uL (0.1-1.30); MONOCYTES % (AUTO) 7.7 % (2.0-12.0); NEUTROPHILS # (AUTO) 9.6 K/uL (1.8-8.9); PLATELET COUNT (AUTO) 272 K/uL (150-450); WHITE BLOOD COUNT (AUTO) 11.5 K/uL (4.3-11.0)
[2021-04-30 08:00] VITALS: BP 190/77
[2021-04-30] MEDS: DEXAMETHASONE SOD PHOSPHATE 10 MG/ML VIAL IV SCH (08:25)
[2021-04-30] MEDS: NIFEdipine XL (30MG) 30 MG TAB PO SCH (08:25)
[2021-04-30] MEDS: CARVEDILOL 3.125 MG TABLET PO SCH (08:26)
[2021-04-30] MEDS: ENSURE ENLIVE 237 ML LIQUID (VANILLA) PO SCH ×2 (08:26→12:53)
[2021-04-30] MEDS ORDERED: CARV3.12 PO (10:40)
[2021-04-30] MEDS ORDERED: NIFE-35 PO (10:40)
[2021-04-30] MEDS ORDERED: METH4TAB17 PO (10:40)
[2021-04-30 12:00] VITALS: BP 108/59
--- NOTE | 2021-04-30 15:00 | NUR ---
RN NOTE PT DC HOME IN STABLE CONDITION OXYGEN 3L VIS NASAL CANULA BREATHING EVEN AND UNLABORED ARM BAND AND IV REMOVED
[2021-04-30] MEDS ORDERED: CARVEDILOL 3.125 MG TABLET PO SCH (21:00)
== END 2021-04-30 15:13 | disposition home health service (06) | DRG 871 ==
LOC: ER 16:59 → TRANSITION 20:41 → TELE1 04-18 11:45 → TELE-TD 04-18 12:22 → TELE1 04-19 15:15
PROVIDERS: ADMIT Nurse Practitioner Acute Care; ATTEND Internal Medicine
PROC: XW033E5 Introduction of Remdesivir Anti-infective into Peripheral Vein, Percutaneous Approach, New Technology Group 5 (ICD-10-PCS; principal; 2021-04-19)
PROC: 05HC33Z Insertion of Infusion Device into Left Basilic Vein, Percutaneous Approach (ICD-10-PCS; 2021-04-24)
DX: A41.89 Other specified sepsis (principal); U07.1 COVID-19; J12.82 Pneumonia due to coronavirus disease 2019; I21.4 Non-ST elevation (NSTEMI) myocardial infarction; N17.0 Acute kidney failure with tubular necrosis; J96.01 Acute respiratory failure with hypoxia; G92.8 Other toxic encephalopathy; I13.0 Hypertensive heart and chronic kidney disease with heart failure and stage 1 through stage 4 chronic kidney disease, or unspecified chronic kidney disease; N39.0 Urinary tract infection, site not specified; E44.1 Mild protein-calorie malnutrition; E87.0 Hyperosmolality and hypernatremia; D68.9 Coagulation defect, unspecified; I50.9 Heart failure, unspecified; N18.9 Chronic kidney disease, unspecified; E78.5 Hyperlipidemia, unspecified; I48.91 Unspecified atrial fibrillation; Z79.01 Long term (current) use of anticoagulants; Z79.82 Long term (current) use of aspirin; Z79.899 Other long term (current) drug therapy; B96.89 Other specified bacterial agents as the cause of diseases classified elsewhere; I25.10 Atherosclerotic heart disease of native coronary artery without angina pectoris; N40.0 Benign prostatic hyperplasia without lower urinary tract symptoms; E87.6 Hypokalemia; D64.9 Anemia, unspecified; D47.2 Monoclonal gammopathy; E86.0 Dehydration; Z86.73 Personal history of transient ischemic attack (TIA), and cerebral infarction without residual deficits; Z95.1 Presence of aortocoronary bypass graft; B96.20 Unspecified Escherichia coli [E. coli] as the cause of diseases classified elsewhere; A41.1 Sepsis due to other specified staphylococcus
CPT/HCPCS: 36415; 36600; 71045-TC; 80048-TC; 80061-TC; 80076-TC; 80202-TC; 81001; 82040-TC; 82728-TC; 82784; 83540-TC; 83605-TC; 83615-TC; 83735-TC; 84100-TC; 84155; 84165; 84439-TC; 84443-TC; 84484-TC; 85025-TC; 85378-TC; 85385-TC; 85610-TC; 85730-TC; 86140-TC; 86334; 87040-TC; 87081-TC; 87086-TC; 87186-TC; 93307-TC; 97112-TC; 97116-TC; 97530-TC; A4216; A4349; C9803; G0378; J0360; J0696; J1100; J2185; J2405; J2543; J3370; J3430; J3490; J7030; J7042; J7050; J7060; J7070; U0003

== ENCOUNTER 2021-10-15 13:55 | Inpatient (IN) | payer OTHER ==
[2021-10-15] VITALS (26 sets, daily range): BP systolic 62–171; BP diastolic 19–147
[~2021-10-15] VITALS: Ht 172.7 cm; Wt 74.8 kg
[~2021-10-15 13:55] MED LIST changes: -CEPH500C2 PO; +METH4TAB17 PO; +NIFE-35 PO
--- NOTE | 2021-10-15 13:55 | NUR ---
[id number] from home, C/O sob 40% on 2lpm NC, NRB 84%, BG 202. PLACED ON BED, NOT RESPONDING TO VERBAL-PAINFUL STIMULA, ATTACHED TO MONITOR SATURATING AT 80% NRM AT 15LIT O2. KNOWN HISTORY OF AFIB, BELLS PALSY, KIDNEY FAILURE.
--- NOTE | 2021-10-15 13:55 | NUR ---
IV ESTABLISHED R FA 18G. LABS DRAWN AND COLLECTED AT BEDSIDE
[2021-10-15] MEDS: IV LR 1000 ML 1,000 ML IV ONE ×2 (14:01→14:45)
--- NOTE | 2021-10-15 14:01 | NUR ---
INTUBATION DONE BY DR KENDRICK WITH ETOMIDATE 20MG, SUCCI. 100MG, ET TUBE-7.5 AT 24.5LIP. POST VITALS BP-95/44, DE-115, SATS. 97%. VENT SETTING AC/VC FIO2-100%, VT-450, RATE-20, PEEP-5
--- NOTE | 2021-10-15 14:08 | NUR ---
COVID TEST COLLECTED AND SENT
[2021-10-15] MEDS ORDERED: TORS10TA17 PO (14:20)
[2021-10-15] MEDS ORDERED: ROSU10TA2 PO (14:20)
[2021-10-15] MEDS ORDERED: DARB300D3 SQ (14:20)
[2021-10-15] MEDS ORDERED: METO25TA4 PO (14:20)
[2021-10-15] MEDS ORDERED: EPLE50TA PO (14:20)
[2021-10-15] MEDS ORDERED: FERR325T23 PO (14:20)
[2021-10-15] MEDS ORDERED: IV NS 0.9% 1,000 ML BAG IV ONE (14:30)
[2021-10-15] MEDS ORDERED: PIPERACILLIN /TAZOBACTAM 3.375 G in IV D5W 50 ML IV ONE (14:30)
[2021-10-15 15:11] LABS: BASOPHILS # (AUTO) 0.1 K/uL (0.0-0.2); BASOPHILS % (AUTO) 0.5 % (0.0-2.0); EOSINOPHILS % (AUTO) 0.3 % (0.0-6.0); HEMATOCRIT 47 % (39-51); HEMOGLOBIN 13.9 g/dL (13.5-17.5); LYMPHOCYTES # (AUTO) 2.3 K/uL (0.8-4.8); LYMPHOCYTES % (AUTO) 21.5 % (20.0-44.0); MEAN CORPUSCULAR HGB CONC 29 g/dl (31.0-36.0); MEAN CORPUSCULAR VOLUME 98 fL (80-96); MONOCYTES # (AUTO) 0.8 K/uL (0.1-1.30); MONOCYTES % (AUTO) 7.6 % (2.0-12.0); NEUTROPHILS # (AUTO) 7.3 K/uL (1.8-8.9); NEUTROPHILS % (AUTO) 70.1 % (43.0-81.0); PLATELET COUNT (AUTO) 163 K/uL (150-450); RED BLOOD CELL COUNT(AUTO) 4.82 MIL/uL (4.5-6.0); WHITE BLOOD COUNT (AUTO) 10.5 K/uL (4.3-11.0)
[2021-10-15 16:07] LABS: CALCIUM, SERUM 10.1 mg/dL (8.5-10.1); CARBON DIOXIDE 35 mmol/L (21-32); CHLORIDE 123 mmol/L (98-107); CREATININE 1.6 mg/dL (0.6-1.3); GLUCOSE 171 mg/dL (74-106); POTASSIUM 4.5 mmol/L (3.5-5.1); UREA NITROGEN, BLOOD 51 mg/dL (7-18)
[2021-10-15 16:08] LABS: SODIUM SERUM 167 mmol/L (136-145)
--- NOTE | 2021-10-15 16:12 | NUR ---
RT Pt is intubated in the ER. 7.5 ET tube, 24. 5 at the lip, Vent setting is AC/VC 20, VT 450, FIO2 100%, +5. VS HR 100, SpO2 98%, RR 19. INSTRUMENTATION FITTER done. Suctioned and monitored. Alarms on and functioning properly. Vent plugged into the red outlet. Ambubag is on the bed side. Will continue to monitor. Addendum: 10/15/21 at 1620 by NANCY MURPHY RT Amended: Links added.
--- NOTE | 2021-10-15 16:15 | NUR ---
ROOM [id number]
[2021-10-15 16:16] LABS: ALANINE AMINOTRANSFERASE 20 U/L (12-78); ALBUMIN 2.9 g/dL (3.4-5.0); ALKALINE PHOSPHATASE 79 U/L (46-116); ASPARTATE AMINOTRANSFERASE 40 U/L (15-37); BILIRUBIN,DIRECT 0.2 mg/dL (0.0-0.2); BILIRUBIN,TOTAL 0.5 mg/dL (0.2-1.0); TOTAL PROTEIN, SERUM 7.4 g/dL (6.4-8.2)
[2021-10-15] MEDS ORDERED: PROPOFOL 10MG/ML 50ML 50 ML IV PRN (16:30)
[2021-10-15] MEDS ORDERED: IOHEXOL-350 100 ML VIAL IV ONE (16:32)
[2021-10-15] MEDS ORDERED: IV NS 0.9% 250 ML IV ONE (16:32)
--- NOTE | 2021-10-15 16:43 | NUR ---
REPORT GIVEN SABIHA BAIRD [id number] FOR SRIDHAR
--- NOTE | 2021-10-15 16:55 | NUR ---
MICROSOFT DYNAMICS DEVELOPER RECEIVED PT FROM ER. REPORT RECEIVED FROM OCEANOGRAPHER GEOLOGICAL. PT WAS SENT FROM HOME TO ER FOR LOW O2 SAT WHILE ON 2L N/C. PT SUBSEQUENTLY INTUBATED AND PLACED ON VENT. PT WITHDRAWS TO PAINFUL STIMULI. DOES NOT OPEN EYES OR INTERACT. IVF FROM ER TO FINISH. ABG TO BE DRAWN. AWAITING ADMITTING ORDERS.
--- NOTE | 2021-10-15 17:00 | NUR ---
ICU/RN PT IS ADMITTED FROM ER .INTUBATED ON THE VENT AC MODE,FIO2-100%,SAT O2-97%..NOT SEDATED.HR-AFIB [address] BPM[address] F/C IN [address] NO URINE OUTPUT.MULTIPLY WOUNDS NOTED ALL OVER THE BODY.PHOTO TAKEN WOUND NURSE NOTIFIED.SUCTION PROVIDED.REPOSITION FOR COMFORT.
[2021-10-15 17:31] LABS: ABG BASE EXCESS 1.6 mmol/L; ABG OXYGEN SATURATION 95.7 % (92.0-98.5); ABG PH 7.334 (7.350-7.450); ABG PO2 84.3 mmHg (75.0-100.0); AaDO2 573.7 mmHg; COHb 0.6 % (0.5-1.5); MetHb 0.2 % (0.0-1.5); O2Hb 94.9 % (94.0-97.0); PEEP,BG 5 cm H2O; SITE, ABG Left Brachial; VENT MODE, BG 100 % fio2; VT, ABG 450 mL
--- NOTE | 2021-10-15 18:27 | NUR ---
RT Pt place FIO2 80% Titrate FIO2 to 92% sat, peep of 0 per the [facility] Addendum: 10/15/21 at 1830 by NANCY MURPHY RT Amended: Links added.
[2021-10-15] MEDS ORDERED: MAGNESIUM HYDROXIDE 30 ML UDC PO PRN (18:30)
[2021-10-15] MEDS ORDERED: ACETAMINOPHEN 325 MG TABLET PO PRN (18:30)
[2021-10-15] MEDS ORDERED: ONDANSETRON HCL/PF 4 MG/2 ML VIAL IVP PRN (18:30)
[2021-10-15] MEDS ORDERED: MAG HYDROX/AL HYDROX/SIMETH 30 ML UDC PO PRN (18:30)
[2021-10-15] MEDS ORDERED: NOREPINEPHRINE 8 MG in IV NS 0.9% 242 ML IV PRN (18:30)
[2021-10-15] MEDS ORDERED: MORPHINE SULFATE INJ 2 MG/ML DISP.SYRIN IV PRN (18:30)
[2021-10-15] MEDS ORDERED: Z GUARD REMEDY 4 OZ OINT TP PRN (18:30)
--- NOTE | 2021-10-15 19:00 | NUR ---
ICU/RN PICC LINE PLACED ORDERED.DUE MEDS ARE GIVEN ORDERED.
[2021-10-15] MEDS: PROPOFOL 100 ML IV PRN ×2 (19:09→19:27)
[2021-10-15] MEDS: PHENYLEPHRINE 50 MG in IV NS 0.9% 245 ML IV PRN (19:17)
[2021-10-15] MEDS: IV D5W 1,000 ML IV PRN (19:26)
[2021-10-15] MEDS: PANTOPRAZOLE 40 MG VIAL IV SCH (19:37)
--- NOTE | 2021-10-15 20:00 | NUR ---
RN NOTE Received patient in bed, intubated, sedated. ET 7.5/24 CM at the lip. Unable to get an accurate o2 saturation as patients extremities are cold. Axillary temp of 98.3 F. O2 saturation ranging from 80 percent to 99. unreliable o2 waveform. RT at bedside. hob elevated semi-canas. PICC line was inserted on right upper arm. AM and PM charge nurse initiated propofol at 5 mcg, Matthieu at 0.02 mcg/kg. d5w infusing at 75 cc/hr. indwelling meraz catheter intact, draining by gravity. no bleeding at this time. bilateral soft wrist, 2 finger space observed. bed low, in locked position. will continue to monitor.
[2021-10-15] MEDS: CEFEPIME 1 GM in IV D5W 50 ML IV SCH (20:56)
[2021-10-15] MEDS: HEPARIN SODIUM, PORCINE 5000 UNITS/1 ML VIAL SQ SCH (21:23)
[2021-10-15 22:07] LABS: BAND % (MANUAL) 1 % (0.0-5.0); LYMPHOCYTES % (MANUAL) 20 % (16-48); MONOCYTES % (MANUAL) 4 % (0-11.0); NEUTROPHILS % (MANUAL) 75 (42-76)
--- NOTE | 2021-10-15 23:00 | NUR ---
RN NOTE INSERTED NGT. VERIFIED PLACEMENT WITH CHARGE NURSE, RAMESH. PLACED ON LOW CONTINUOS SUCTION PER MD ORDER. NO RESIDUAL.
[2021-10-16] VITALS (93 sets, daily range): BP systolic 74–156; BP diastolic 26–91
--- NOTE | 2021-10-16 01:20 | NUR ---
RT FIO2 titrated from 80% to 65% due to FIO2 99%. Will cont to monitor.
--- NOTE | 2021-10-16 04:15 | NUR ---
RT FIO2 titrated from 65% to 60%. SpO2 94% w/o resp distress at this time. Addendum: 10/16/21 at 0603 by USMAN HOWE RT Amended: Links added.
[2021-10-16 04:24] LABS: BASOPHILS % (AUTO) 0.2 % (0.0-2.0); HEMATOCRIT 40 % (39-51); LYMPHOCYTES # (AUTO) 1.2 K/uL (0.8-4.8); LYMPHOCYTES % (AUTO) 5.9 % (20.0-44.0); MEAN CORPUSCULAR HGB CONC 30 g/dl (31.0-36.0); MEAN CORPUSCULAR VOLUME 97 fL (80-96); MONOCYTES % (AUTO) 4.9 % (2.0-12.0); NEUTROPHILS # (AUTO) 18.4 K/uL (1.8-8.9); PLATELET COUNT (AUTO) 138 K/uL (150-450); RED BLOOD CELL COUNT(AUTO) 4.16 MIL/uL (4.5-6.0); WHITE BLOOD COUNT (AUTO) 20.6 K/uL (4.3-11.0)
[2021-10-16 04:40] LABS: CALCIUM, SERUM 9.2 mg/dL (8.5-10.1); CARBON DIOXIDE 31 mmol/L (21-32); CHLORIDE 122 mmol/L (98-107); CREATININE 1.9 mg/dL (0.6-1.3); GLUCOSE 122 mg/dL (74-106); MAGNESIUM 2.3 mg/dL (1.8-2.4); PHOSPHORUS 1.8 mg/dL (2.5-4.9); POTASSIUM 3.9 mmol/L (3.5-5.1); UREA NITROGEN, BLOOD 53 mg/dL (7-18)
[2021-10-16 04:45] LABS: SODIUM SERUM 163 mmol/L (136-145)
[2021-10-16 04:52] LABS: CHOLESTEROL 75 mg/dL (<200); HDL CHOLESTEROL 31 mg/dL (40-60); LDL 37 mg/dL (0-99); THYROID STIMULATING HORMONE 1.618 uIU/mL (0.358-3.74); TRIGLYCERIDES 84 mg/dL (30-150)
--- NOTE | 2021-10-16 06:10 | NUR ---
RT Pt remain orally intubated with 7.5 ETT secured at 24cm at the lip line on [facility] vent tolerating ordered settings: AC mode, RR 20, VT 450, FIO2 60%, PEEP +5. No resp distress noted throughout shift. PROFESSOR OF SPORT MANAGEMENT done. Pt suctioned. Alarms set and audible. Ambubag at bedside. Vent plugged into red outlet. Will cont to monitor.
[2021-10-16] MEDS: PROPOFOL 100 ML IV PRN ×2 (06:37→18:49)
[2021-10-16] MEDS: PHENYLEPHRINE 50 MG in IV NS 0.9% 245 ML IV PRN ×2 (08:06→19:17)
--- NOTE | 2021-10-16 08:12 | NUR ---
OPENING NOTE PT RECEIVED OBTUNDED ON SEDATION, RABIA, AND INTUBATED @24 LIP. BEDSIDE MONITORING IN PLACE READING A FIB WITH BIGEMINY. PORTILLO CATHETER IN PLACE DRAINING TEA COLORED URINE, RN ACKNOWLEDGE PT HAS A SACRAL DTI. IV ACCESS FEDERICO PICC LINE PATENT NO S/S OF INFILTRATION, RIGHT HAND IV CATHETER PATENT, FLUSHING, NO S/S OF INFILTRATION, LEFT WRIST IV CATHETER PATENT FLUSHING WITH EASE NO S/S OF INFILTRATION. PT ON SOFT RESTRAINTS NEUROVASCULAR STATUS ASSESSED PULSE 2X BOTH WRISTS, PT SHOWS NO S/S OF DISTRESS AT THIS MOMENT, BED IN LOWEST POSITION, BED ALARM ON SIDE RAILS UP 2X. WILL CONTINUE TO MONITOR
[2021-10-16] MEDS: PANTOPRAZOLE 40 MG VIAL IV SCH (08:25)
[2021-10-16] MEDS: CEFEPIME 1 GM in IV D5W 50 ML IV SCH ×2 (08:25→21:19)
[2021-10-16] MEDS: HEPARIN SODIUM, PORCINE 5000 UNITS/1 ML VIAL SQ SCH (08:26)
[2021-10-16 08:31] LABS: ABG BASE EXCESS 1.5 mmol/L; ABG OXYGEN SATURATION 93.6 % (92.0-98.5); ABG PCO2 33.6 mmHg (35.0-45.0); ABG PH 7.481 (7.350-7.450); ABG PO2 67.2 mmHg (75.0-100.0); AaDO2 323.6 mmHg; COHb 0.3 % (0.5-1.5); MetHb 0.2 % (0.0-1.5); O2Hb 93.1 % (94.0-97.0); SITE, ABG Left Radial
[2021-10-16] MEDS: ACETAMINOPHEN 650 MG/20.3 ML UDC NG PRN (08:38)
[2021-10-16] MEDS: IV D5W 1,000 ML IV PRN ×2 (08:57→21:20)
[2021-10-16] MEDS ORDERED: APIXABAN 2.5 MG TABLET PO SCH (09:00)
[2021-10-16] MEDS: DEXAMETHASONE SOD PHOSPHATE 10 MG/ML VIAL IV SCH (09:12)
--- NOTE | 2021-10-16 09:27 | NUR ---
WOUND CARE CONSULT: REVIEWED CHART, NURSING DOCUMENTATION AND PHOTOS WHICH INDICATE INTACT DEEP TISSUE INJURIES TO RT LOWER LEG AND SACRUM WELL OPEN WOUND TO RT ANKLE, PRESENT ON ADMISSION. DR TURCIOS NOTIFIED OF DPM CONSULT REQUEST. RECOMMENDATIONS MADE FOR SKIN PROTECTION. DISCUSSED WITH NURSING STAFF. PT IS ON LEON ISOFLEX LOW AIRLOSS BED. IN AGREEMENT WITH PLAN OF CARE.
[2021-10-16] MEDS: POTASSIUM PHOSPHATE MM 7.5 MMOL in IV NS 0.9% 100 ML IV SCH ×2 (11:19→14:16)
[2021-10-16] MEDS ORDERED: IV NS 0.9% 250 ML IV ONE (16:33)
[2021-10-16] MEDS ORDERED: IOHEXOL-350 100 ML VIAL IV ONE (16:33)
--- NOTE | 2021-10-16 18:00 | NUR ---
ICU/RN CT PULMONARY ANGIOGRAM DONE.PT IS POSITIVE FOR BILATERAL LUNGS PULMONARY EMBOLI.DR IBANEZ NOTIFIED. PRIMARY RENÉE CAPPS NOTIFIED.DUE MEDS ARE GIVEN ORDERED.PT IS IS ALSO POSITIVE FOR BLE DVT .PM CARE PROVIDED.SUCTION PROVIDED.REPOSITION FOR COMFORT.PT IS ON NEOSYNEPHRINE DRIP AND SEDATED WITH DIPRIVAN .CONTINUE MONITORING.
[2021-10-16] MEDS: APIXABAN 5 MG TABLET PO SCH (18:04)
--- NOTE | 2021-10-16 19:10 | NUR ---
N OPENING NOTES RECEIVED PATIENT ON BED,SEDATED. ON MECHANICAL VENTILATOR. ETT- 7.5 AT 24 CM FROM THE LIP. SETTINGS TOLERATED WELL. RESPIRATORY EVEN AND UNLABORED, NO SOB NOTED. AFEBRILE, NO S/S OF DISTRESS NOTED. PATIENT NOTED WITH RIGHT FOREARM PERIPHERAL LINE, FEDERICO PICC LINE, FLUSHED WITH NS, NO S/S OF INFILTRATION NOTED AT SITE, RUNNING WITH D5 WATER @ 100 ML/HR , NEOSYNEPHRINE @ 0.8 MCG/KG/MIN, PROPOFOL @ 15 MCG/KG/MIN. NASO GASTRIC TUBE PATENT INTACT, VERIFIED PLACEMENT BY AUSCULTATION, NO RESIDUAL NOTED UPON ASPIRATION. PORTILLO CATHETER PATENT INTACT, DRAINING WITH URINE VIA GRAVITY. ALL SAFETY MEASURE PROVIDED. BED IN LOWEST POSITION, LOCKED. BED ALARM ARMED. CONTINUE TO MONITOR
--- NOTE | 2021-10-16 19:27 | NUR ---
RT NOTE RECEIVED PT ON MECH VENT ON CURRENT MD ORDERED VENT SETTING. EET TUBE 7.5 24CM AT THE LIP. VENT PLUGGED INTO RED OUTLET, ALARMS ON AND AUDIBLE. NOT S/S OF ACUTE RESPIRATORY DISTRESS NOTED.
[2021-10-17] VITALS (81 sets, daily range): BP systolic 85–137; BP diastolic 49–85
[2021-10-17 04:43] LABS: BASOPHILS # (AUTO) 0.1 K/uL (0.0-0.2); BASOPHILS % (AUTO) 0.3 % (0.0-2.0); HEMATOCRIT 39 % (39-51); HEMOGLOBIN 12.1 g/dL (13.5-17.5); LYMPHOCYTES # (AUTO) 1.2 K/uL (0.8-4.8); LYMPHOCYTES % (AUTO) 4.6 % (20.0-44.0); MEAN CORPUSCULAR HGB CONC 31 g/dl (31.0-36.0); MEAN CORPUSCULAR VOLUME 92 fL (80-96); MONOCYTES # (AUTO) 0.8 K/uL (0.1-1.30); MONOCYTES % (AUTO) 3.3 % (2.0-12.0); NEUTROPHILS # (AUTO) 23.7 K/uL (1.8-8.9); NEUTROPHILS % (AUTO) 91.8 % (43.0-81.0); PLATELET COUNT (AUTO) 143 K/uL (150-450); RED BLOOD CELL COUNT(AUTO) 4.22 MIL/uL (4.5-6.0); WHITE BLOOD COUNT (AUTO) 25.9 K/uL (4.3-11.0)
[2021-10-17 05:50] LABS: CALCIUM, SERUM 8.9 mg/dL (8.5-10.1); CARBON DIOXIDE 28 mmol/L (21-32); CHLORIDE 113 mmol/L (98-107); GLUCOSE 198 mg/dL (74-106); PHOSPHORUS 3.6 mg/dL (2.5-4.9); POTASSIUM 3.7 mmol/L (3.5-5.1); SODIUM SERUM 152 mmol/L (136-145); UREA NITROGEN, BLOOD 62 mg/dL (7-18)
[2021-10-17] MEDS: PROPOFOL 100 ML IV PRN (06:35)
--- NOTE | 2021-10-17 07:11 | NUR ---
RN NOTES PATIENT REMAIN STABLE, SEDATED NO AGITATION NOTED. RESPIRATORY EVEN AND UNLABORED, NO SOB NOTED. AFEBRILE, NO S/S OF DISTRESS NOTED. RUNNING WITH D5 WATER @ 100 ML/HR , NEOSYNEPHRINE @ 0.4 MCG/KG/MIN, PROPOFOL @ 15 MCG/KG/MIN. NASO GASTRIC TUBE PATENT INTACT, VERIFIED PLACEMENT BY AUSCULTATION, NO RESIDUAL NOTED UPON ASPIRATION. PORTILLO CATHETER PATENT INTACT, DRAINING WITH URINE VIA GRAVITY. ALL DUE MEDS GIVEN PER MD'S ORDERED. ALL SAFETY MEASURE PROVIDED. BED IN LOWEST POSITION, LOCKED. BED ALARM ARMED. REPORT GIVEN TO MORNING SHIFT NURSE
--- NOTE | 2021-10-17 08:05 | NUR ---
WOUND CARE CONSULT: PT SEEN FOR SKIN ASSESSMENT AND NOTED TO HAVE FRAGILE SKIN WITH SOME RED DISCOLORATION TO UPPER BACK, RT ANKLE WOUND, BILATERAL LOWER LEG INTACT DEEP TISSUE INJURIES AND DEEP TISSUE INJURY TO SACRUM, ALL PRESENT ON ADMISSION. DPM FOLLOWING FOR LOWER EXTREMITIES. RECOMMENDATIONS MADE FOR SKIN PROTECTION AND DISCUSSED WITH NURSING STAFF. PT IS ON TYLER ISOFLEX LOW AIRLOSS BED. PT CURRENTLY INTUBATED. IN AGREEMENT WITH PLAN OF CARE.
--- NOTE | 2021-10-17 08:10 | NUR ---
RN OPENING NOTE PT RECEIVED WITH STABLE VITALS INTUBATED AND SEDATED. ET TUBE 24 @ LIP SAT'S IN THE MID 90'S CURRENTLY 95%. ON BEDSIDE MONITOR AFIB WITH PVC @70HR. PORTILLO CATHETER IN PLACE AND DRAINING SCANT AMOUNTS OF URINE 150ML PER CIVIL DRAFTSMAN REPORT, NGT IN PLACE AND PATENT FLUSHED WITH 200CC'S PER DOCTORS ORDER. SACRAL DTI SEEN BY WOUND NURSE THIS MORNING. FEDERICO PICC PATENT AND FLUSHES WITH EASE. PT IS ON PRESSORS, SEDATION AND D5/ H2O IS STILL HYPERNATREMIC. BED IN LOWEST POSTION, SIDE RAILS UP 2X IN LOW FOWLERS
[2021-10-17] MEDS: APIXABAN 5 MG TABLET PO SCH ×2 (08:38→16:47)
[2021-10-17] MEDS: CEFEPIME 1 GM in IV D5W 50 ML IV SCH ×2 (08:39→20:59)
[2021-10-17] MEDS: DEXAMETHASONE SOD PHOSPHATE 10 MG/ML VIAL IV SCH (08:39)
[2021-10-17] MEDS: PANTOPRAZOLE 40 MG VIAL IV SCH (08:39)
[2021-10-17 08:51] LABS: ABG BASE EXCESS -1.7 mmol/L; ABG OXYGEN SATURATION 94.5 % (92.0-98.5); ABG PCO2 36.8 mmHg (35.0-45.0); ABG PH 7.406 (7.350-7.450); ABG PO2 79.3 mmHg (75.0-100.0); AaDO2 235.8 mmHg; COHb 0.5 % (0.5-1.5); MetHb 0.2 % (0.0-1.5); O2Hb 93.8 % (94.0-97.0); PEEP,BG 5 cm H2O; SITE, ABG Right Brachial; VT, ABG 450 mL
[2021-10-17] MEDS: IV D5W 1,000 ML IV PRN ×2 (08:53→19:47)
[2021-10-17] MEDS: AMMONIUM LACTATE 227 GM BOTTLE TP SCH ×2 (09:37→17:09)
[2021-10-17] MEDS: GENTAMICIN 0.1% OINT 15 GM TUBE TP SCH ×2 (09:48→17:09)
[2021-10-17] MEDS: JEVITY 1.2 CAL 1,000 ML BOTTLE GT PRN (11:57)
[2021-10-17] MEDS: PHENYLEPHRINE 50 MG in IV NS 0.9% 245 ML IV PRN (19:16)
--- NOTE | 2021-10-17 19:21 | NUR ---
SHIPPING AND RECEIVING CLOSING GAVE REPORT TO TAE. ON VENTILATOR SATTING IN THE 90'S EVEN UNLABORED BREATHING NO SIGNS OF RESPIRATORY DISTRESS. ON BED SIDE MONITOR AFIB PVC. PT LETHARGIC AND TAKEN OFF SEDATION. PORTILLO CATHETER PATENT AND DRAINING SCANT URINE WESTERN FELT HAT BLOCKER NOTIFIED. PICC PATENT AND INTACT 2X SIDE RAILS UP, BED IN LOWEST POSITION.
--- NOTE | 2021-10-17 20:52 | NUR ---
MIDWIFE PRACTITIONER. INITIAL ASSESSMENT. RECEIVED THE PT REST IN BED. ORALLY INTUBATED. ETT 7.5CMS, AC 16,TV 450, FIO2 50%, PEEP 5. SAT 98%. NO ACUTE DISTRESS NOTED. BENEFITS PROCESSOR SHOWING A FIB. LT NARE NGT INTACT. JEVITY 35 ML/H, FC PATENT. URINE DRAINING. IV RT UPPER ARM PICC LINE . RABIA 0.3 MCG/KG/MIN. IVF D5W @ 100 ML/H. HOB ELEVATED. WILL CONTINUE TO MONITOR VITALS.
[2021-10-17] MEDS ORDERED: MEROPENEM 500 MG in IV NS 0.9% 50 ML IV ONE (22:00)
[2021-10-17] MEDS ORDERED: MEROPENEM 500 MG VIAL IV ONE (22:50)
[2021-10-18] VITALS (67 sets, daily range): BP systolic 79–150; BP diastolic 41–84
--- NOTE | 2021-10-18 03:35 | NUR ---
SPRIGGER. AM CARE GIVEN. REMAINING SAME VENT SETTINGS TOLERATED WELL. SAT 98%/NO ACUTE DISTRESS NOTED. STRATEGIC PARTNER DEVELOPMENT MANAGER SHOWING NSR. IV RT UPPER ARM PICC LINE. IVF D5W 100ML/H. HOB ELEVATED. GT FEEDING 35 ML/H. GOAL IS 65. WILL MONITOR RESIDUAL. FC PATENT. TURN AND REPOSITION Q2H. KELLE SOFT WRIST RESTRAINT CHECKED AND RELEASED NO INJURY OR REDNESS NOTED.
[2021-10-18 04:17] LABS: BASOPHILS # (AUTO) 0.1 K/uL (0.0-0.2); BASOPHILS % (AUTO) 0.5 % (0.0-2.0); HEMATOCRIT 37 % (39-51); HEMOGLOBIN 11.5 g/dL (13.5-17.5); LYMPHOCYTES # (AUTO) 0.8 K/uL (0.8-4.8); LYMPHOCYTES % (AUTO) 3.1 % (20.0-44.0); MEAN CORPUSCULAR HGB CONC 31 g/dl (31.0-36.0); MEAN CORPUSCULAR VOLUME 92 fL (80-96); MONOCYTES # (AUTO) 0.8 K/uL (0.1-1.30); MONOCYTES % (AUTO) 3.2 % (2.0-12.0); NEUTROPHILS # (AUTO) 22.5 K/uL (1.8-8.9); NEUTROPHILS % (AUTO) 93.2 % (43.0-81.0); PLATELET COUNT (AUTO) 141 K/uL (150-450); RED BLOOD CELL COUNT(AUTO) 4.02 MIL/uL (4.5-6.0); WHITE BLOOD COUNT (AUTO) 24.1 K/uL (4.3-11.0)
[2021-10-18 04:31] LABS: CALCIUM, SERUM 8.4 mg/dL (8.5-10.1); CARBON DIOXIDE 27 mmol/L (21-32); CHLORIDE 107 mmol/L (98-107); GLUCOSE 229 mg/dL (74-106); POTASSIUM 3.8 mmol/L (3.5-5.1); SODIUM SERUM 144 mmol/L (136-145); UREA NITROGEN, BLOOD 66 mg/dL (7-18)
[2021-10-18] MEDS: IV D5W 1,000 ML IV PRN ×2 (06:25→18:21)
--- NOTE | 2021-10-18 07:09 | NUR ---
RN NOTES PT FOUND SEMI FOWLERS DISPLAYING NO S/S OF DISTRESS, FLACC = 1 AND BILATERAL RISE AND FALL OF THE CHEST OBSERVED. NG TUBE IN PLACE, REPORT FROM EVALUATOR TRANSFER STUDENTS FOUND INCREASED RESIDUAL, CURRENT RATE IS 20 ML/HR. R UA PICC IS PATIENT AND INTACT. BILATERAL SOFT WRISTS APPLIED, PULSES PALPATED AND CAP REFILL < 3 SECONDS BILATERALLY. PORTILLO CATH RESERVOIR BELOW PATIENT DRAINING BY GRAVITY. RN WILL CONTINUE CARE PLAN AND ANTICIPATE NEEDS. SAFETY MEASURES IN PLACE, BED LOCKED AND IN LOWEST POSITION, SIDE RAILS UPX2, CALL LIGHT WITHIN REACH, BED ALARM ARMED.
[2021-10-18] MEDS: PANTOPRAZOLE 40 MG/PACK PACK NG SCH (08:45)
[2021-10-18] MEDS: DEXAMETHASONE SOD PHOSPHATE 10 MG/ML VIAL IV SCH (08:45)
[2021-10-18] MEDS: APIXABAN 5 MG TABLET PO SCH ×2 (08:46→17:37)
[2021-10-18] MEDS: AMMONIUM LACTATE 227 GM BOTTLE TP SCH ×2 (08:58→17:36)
[2021-10-18] MEDS: GENTAMICIN 0.1% OINT 15 GM TUBE TP SCH ×2 (08:58→17:36)
[2021-10-18] MEDS ORDERED: MEROPENEM 500 MG in IV NS 0.9% 50 ML IV SCH (10:00)
[2021-10-18] MEDS: MEROPENEM 500 MG in IV NS 0.9% 100 ML IV SCH ×2 (10:58→23:08)
[2021-10-18 16:53] LABS: BILIRUBIN,URINE NEGATIVE (NEGATIVE); COLOR,URINE YELLOW (YELLOW); LEUKOCYTE ESTERASE ,URINE NEGATIVE (NEGATIVE); NITRITE, URINE NEGATIVE (NEGATIVE); PH,URINE 5.5 (5.0-8.0); PROTEIN,URINE TRACE mg/dl (NEGATIVE); UGLUCOSE NEGATIVE (NEGATIVE); UROBILINOGEN,URINE 0.2 EU/dL (0.2)
[2021-10-18 17:24] LABS: BACTERIA,URINE RARE /HPF (None Seen); SQUAMOUS EPITHELIAL CELL,UR 0-2 /HPF (None Seen); WBC,URINE 0-2 /HPF (0-3)
[2021-10-18] MEDS: ATORVASTATIN 10 MG TABLET PO SCH (17:35)
[2021-10-18] MEDS: FERROUS SULFATE (325 MG) 325 MG/TAB TABLET PO SCH (17:35)
[2021-10-18 17:40] LABS: CREATININE, URINE 101.1 MG/DL (30.0-125.0)
--- NOTE | 2021-10-18 19:19 | NUR ---
RN NOTES PT FOUND SEMI FOWLERS DISPLAYING NO S/S OF DISTRESS, FLACC = 0 AND BILATERAL RISE AND FALL OF THE CHEST OBSERVED. R UA PICC IS PATIENT AND INTACT. PORTILLO CATH RESERVOIR BELOW PATIENT DRAINING BY GRAVITY. SBAR AND REPORT GIVEN TO RANGE MASTER RN, ALL QUESTIONS ANSWERED. SAFETY MEASURES IN PLACE, BED LOCKED AND IN LOWEST POSITION, SIDE RAILS UPX2, CALL LIGHT WITHIN REACH, BED ALARM ARMED. PT ENDORSED IN STABLE CONDITION FOR SRIDHAR.
--- NOTE | 2021-10-18 19:30 | NUR ---
RN NOTES RECEIVED CARE OF PATIENT FROM AM NURSE, PATIENT OBTUNDED, ON MECHANICAL VENTILATION WITH ORDERED SETTINGS. PATIENT TOLERATING O2 SUPPORT WELL, O2 SAT 98%. NO SIGNS OF DISCOMFORT OR PAIN AT THIS TIME. PATIENT NOTED WITH PORTILLO DRAINING YELLOW URINE. PATIENT ON TELE MONITOR SHOWING AFIB WITH PVCS HR OF 77. RUNNING WITH IV FLUIDS D5W AT 100 ML/HR. SAFETY MEASURES IMPLEMENTED. WILL CONTINUE TO MONITOR PATIENT.
[2021-10-19] VITALS (24 sets, daily range): BP systolic 87–159; BP diastolic 51–93
[2021-10-19 04:00] LABS: BASOPHILS % (AUTO) 0.2 % (0.0-2.0); HEMATOCRIT 36 % (39-51); HEMOGLOBIN 11.1 g/dL (13.5-17.5); LYMPHOCYTES # (AUTO) 0.7 K/uL (0.8-4.8); LYMPHOCYTES % (AUTO) 4.9 % (20.0-44.0); MEAN CORPUSCULAR HGB CONC 31 g/dl (31.0-36.0); MEAN CORPUSCULAR VOLUME 91 fL (80-96); MONOCYTES # (AUTO) 0.7 K/uL (0.1-1.30); MONOCYTES % (AUTO) 4.4 % (2.0-12.0); NEUTROPHILS # (AUTO) 13.5 K/uL (1.8-8.9); NEUTROPHILS % (AUTO) 90.5 % (43.0-81.0); PLATELET COUNT (AUTO) 116 K/uL (150-450); RED BLOOD CELL COUNT(AUTO) 3.89 MIL/uL (4.5-6.0); WHITE BLOOD COUNT (AUTO) 14.9 K/uL (4.3-11.0)
[2021-10-19 04:13] LABS: CALCIUM, SERUM 8.1 mg/dL (8.5-10.1); CARBON DIOXIDE 27 mmol/L (21-32); CHLORIDE 104 mmol/L (98-107); GLUCOSE 159 mg/dL (74-106); POTASSIUM 3.6 mmol/L (3.5-5.1); SODIUM SERUM 140 mmol/L (136-145); UREA NITROGEN, BLOOD 67 mg/dL (7-18)
[2021-10-19] MEDS: IV D5W 1,000 ML IV PRN ×2 (06:47→20:29)
--- NOTE | 2021-10-19 07:02 | NUR ---
WOUND CARE FOLLOW UP: PT HAS SACRAL DEEP TISSUE INJURY (PRESENT ON ADMISSION) WHICH IS IN EVOLUTION. DISCUSSED SKIN PROTECTION AND WOUND CARE UPDATED ORDERS WITH NURSING STAFF. DR NAQVI TO BE CALLED THIS AM FOR SURGICAL CONSULT. MD IN AGREEMENT WITH PLAN OF CARE.
--- NOTE | 2021-10-19 07:19 | NUR ---
RN NOTES ENDORSED CARE OF PATIENT TO AM NURSE. NO SIGNIFICANT CHANGES TO PATIENT'S CONDITION THROUGHOUT SHIFT. SAFETY MEASURES KEPT IN PLACE. ALL DUE MED GIVEN AND PATIENT'S NEEDS ANTICIPATED AND MET. ENDORSED TO AM NURSE FOR SRIDHAR.
--- NOTE | 2021-10-19 07:30 | NUR ---
OPENING NOTE: REPORT RECEIVED FROM JERRY BAIRD. LABS AND ORDERS REVIEWED DURING REPORT. PT INTUBATED, PER REPORT UNRESPONSIVE, NO SEDATION. TUBE FEEDING INFUSING PER MD ORDERS AT 20ML/HR. PT CHECKED ON HOURLY AND PRN BY NURSING STAFF.
[2021-10-19] MEDS: PANTOPRAZOLE 40 MG/PACK PACK NG SCH (10:03)
[2021-10-19] MEDS: APIXABAN 5 MG TABLET PO SCH ×2 (10:04→17:56)
[2021-10-19] MEDS: FERROUS SULFATE (325 MG) 325 MG/TAB TABLET PO SCH ×2 (10:04→17:55)
[2021-10-19] MEDS: AMMONIUM LACTATE 227 GM BOTTLE TP SCH ×2 (10:05→17:55)
[2021-10-19] MEDS: DEXAMETHASONE SOD PHOSPHATE 10 MG/ML VIAL IV SCH (10:05)
[2021-10-19] MEDS: GENTAMICIN 0.1% OINT 15 GM TUBE TP SCH ×2 (10:05→17:55)
[2021-10-19] MEDS: JEVITY 1.2 CAL 1,000 ML BOTTLE GT PRN (10:28)
[2021-10-19] MEDS: MEROPENEM 500 MG in IV NS 0.9% 100 ML IV SCH ×2 (11:28→22:46)
[2021-10-19] MEDS: ATORVASTATIN 10 MG TABLET PO SCH (17:55)
--- NOTE | 2021-10-19 19:30 | NUR ---
END OF SHIFT NOTE: PT HAD AN UNEVENTFUL SHIFT. TUBE FEEDING INCREASED FROM 20ML/HR TO 30ML/HR PER MD ORDERS. PT WAS ALERT ON AND OFF TODAY, FOLLOWING SIMPLE COMMANDS. TOTAL URINE OUTPUT OF 550ML. PT CHECKED ON HOURLY AND PRN BY NURSING STAFF.
--- NOTE | 2021-10-19 20:00 | NUR ---
ICU NOTE Patient resting off sedation orally intubated to mecahical vent on AC mode well tolerated.Secretions suctioned and oral care done.NAD noted.Open eyes spontaneously and follows simple commands.Afib controlled with occasional PVC'S.Tube feeding via L NGT infusing.Placement verified no residual noted. Feeding rate increased to 40 ml/hr goal rate 65..Maintain HOB elevated.FC to gravity.Turned and repositioned.
[2021-10-20] VITALS (26 sets, daily range): BP systolic 87–146; BP diastolic 44–77
--- NOTE | 2021-10-20 | NUR ---
ICU NOTES Patient awake tried to pull NGT out.Bilateral soft wrist restraints applied for safety.Incontinent of stool moderate amount.Kept clean and dry.Bed bath rendered.Complete linens changed. Turned and repositioned.
[2021-10-20 04:44] LABS: BASOPHILS % (AUTO) 0.1 % (0.0-2.0); HEMATOCRIT 36 % (39-51); HEMOGLOBIN 11.6 g/dL (13.5-17.5); LYMPHOCYTES # (AUTO) 0.7 K/uL (0.8-4.8); MEAN CORPUSCULAR HGB CONC 32 g/dl (31.0-36.0); MEAN CORPUSCULAR VOLUME 90 fL (80-96); MONOCYTES # (AUTO) 0.8 K/uL (0.1-1.30); MONOCYTES % (AUTO) 6.5 % (2.0-12.0); NEUTROPHILS # (AUTO) 10.8 K/uL (1.8-8.9); NEUTROPHILS % (AUTO) 87.4 % (43.0-81.0); PLATELET COUNT (AUTO) 133 K/uL (150-450); RED BLOOD CELL COUNT(AUTO) 4.02 MIL/uL (4.5-6.0); WHITE BLOOD COUNT (AUTO) 12.4 K/uL (4.3-11.0)
[2021-10-20 04:54] LABS: CARBON DIOXIDE 27 mmol/L (21-32); CHLORIDE 101 mmol/L (98-107); CREATININE 1.8 mg/dL (0.6-1.3); GLUCOSE 201 mg/dL (74-106); POTASSIUM 3.4 mmol/L (3.5-5.1); SODIUM SERUM 133 mmol/L (136-145); UREA NITROGEN, BLOOD 64 mg/dL (7-18)
--- NOTE | 2021-10-20 05:34 | NUR ---
PATIENT RECEIVED ON VENT SUPPORT WITH ETT 7.5 @ 24 cm AND SETTINGS OF AC 16, 450 Vt, 40%, +5. SUCTIONED FOR MINIMAL, THIN, CLEAR SECRETIONS. AMBU BAG AT BEDSIDE. VENT ALARM AUDIBLE AND VISIBLE. ETT CHIRINOS AND HME CHANGED. VENT PLUGGED INTO RED OUTLET. Addendum: 10/20/21 at 0535 by RUIZ FLOYD RT Amended: Links added.
[2021-10-20] MEDS: IV D5W 1,000 ML IV PRN (06:24)
--- NOTE | 2021-10-20 07:13 | NUR ---
END NOTE Patient resting in no acute distress.VS remains stable.Tolerating ngt feeding well. Turned and repositioned.No significant changes noted during the shift.Report given to kiko decker RN.
--- NOTE | 2021-10-20 07:30 | NUR ---
OPENING NOTE: REPORT RECEIVED FROM MARY BAIRD. ORDERS AND MEDS REVIEWED DURING REPORT. TUBE FEEDING INFUSING AT 50ML/HR PER MD ORDERS, GOAL OF 65ML/HR. PT AWAKE, RESPONSIVE TO MINIMAL STIMULI. PT CHECKED ON HOURLY AND PRN BY NURSING STAFF.
[2021-10-20] MEDS ORDERED: MAGNESIUM HYDROXIDE 30 ML UDC GT PRN (07:54)
[2021-10-20] MEDS ORDERED: POTASSIUM CHLORIDE 20 MEQ POWDER PACKET GT ONE (08:00)
[2021-10-20] MEDS: DEXAMETHASONE SOD PHOSPHATE 10 MG/ML VIAL IV SCH (08:57)
[2021-10-20] MEDS: FERROUS SULFATE (325 MG) 325 MG/TAB TABLET PO SCH ×2 (08:58→17:42)
[2021-10-20] MEDS: PANTOPRAZOLE 40 MG/PACK PACK NG SCH (08:58)
[2021-10-20] MEDS: APIXABAN 5 MG TABLET PO SCH ×2 (08:59→17:44)
[2021-10-20] MEDS: GENTAMICIN 0.1% OINT 15 GM TUBE TP SCH ×2 (09:00→17:43)
[2021-10-20] MEDS: AMMONIUM LACTATE 227 GM BOTTLE TP SCH ×2 (09:00→17:43)
--- NOTE | 2021-10-20 09:15 | NUR ---
PT PUT ON SIMV WEANING TRIAL AT THIS TIME. TUBE FEEDING STOPPED DURING TRIAL. ABG IN 1 HOUR.
[2021-10-20] MEDS ORDERED: IV NS 0.9% 1,000 ML IV SCH (09:30)
[2021-10-20 10:41] LABS: ABG BASE EXCESS -1.2 mmol/L; ABG PCO2 32.8 mmHg (35.0-45.0); ABG PH 7.447 (7.350-7.450); ABG PO2 82.8 mmHg (75.0-100.0); COHb 0.3 % (0.5-1.5); MetHb 0.3 % (0.0-1.5); O2Hb 95.7 % (94.0-97.0); PEEP,BG 5 cm H2O; SITE, ABG Right Brachial; VENT MODE, BG SIMV; VT, ABG 450 mL
--- NOTE | 2021-10-20 11:00 | NUR ---
PER DR IBANEZ PT WILL STAY ON SIMV TODAY LONG HE TOLERATES IT. TUBE FEEDING RESUMED AT THIS TIME.
[2021-10-20] MEDS: MEROPENEM 500 MG in IV NS 0.9% 100 ML IV SCH ×2 (11:16→23:10)
--- NOTE | 2021-10-20 15:06 | NUR ---
PLACED BACK ON AC MODE DUE TO INCREASED WORK OF BREATHING. RN AWARE. Addendum: 10/20/21 at 1507 by BHARAT HERCULES RT Amended: Links added.
[2021-10-20] MEDS: ATORVASTATIN 10 MG TABLET PO SCH (17:42)
[2021-10-20] MEDS: JEVITY 1.2 CAL 1,000 ML BOTTLE GT PRN (18:00)
[2021-10-21] VITALS (25 sets, daily range): BP systolic 91–121; BP diastolic 54–72
[2021-10-21 04:41] LABS: BASOPHILS % (AUTO) 0.2 % (0.0-2.0); EOSINOPHILS % (AUTO) 0.2 % (0.0-6.0); HEMATOCRIT 36 % (39-51); HEMOGLOBIN 11.3 g/dL (13.5-17.5); LYMPHOCYTES # (AUTO) 0.7 K/uL (0.8-4.8); LYMPHOCYTES % (AUTO) 5.8 % (20.0-44.0); MEAN CORPUSCULAR HGB CONC 32 g/dl (31.0-36.0); MEAN CORPUSCULAR VOLUME 90 fL (80-96); MONOCYTES % (AUTO) 8.3 % (2.0-12.0); NEUTROPHILS # (AUTO) 9.9 K/uL (1.8-8.9); NEUTROPHILS % (AUTO) 85.5 % (43.0-81.0); PLATELET COUNT (AUTO) 150 K/uL (150-450); RED BLOOD CELL COUNT(AUTO) 3.96 MIL/uL (4.5-6.0); WHITE BLOOD COUNT (AUTO) 11.6 K/uL (4.3-11.0)
[2021-10-21 04:57] LABS: CALCIUM, SERUM 7.9 mg/dL (8.5-10.1); CARBON DIOXIDE 28 mmol/L (21-32); CHLORIDE 103 mmol/L (98-107); CREATININE 1.6 mg/dL (0.6-1.3); GLUCOSE 131 mg/dL (74-106); SODIUM SERUM 134 mmol/L (136-145); UREA NITROGEN, BLOOD 61 mg/dL (7-18)
[2021-10-21] MEDS: PANTOPRAZOLE 40 MG/PACK PACK NG SCH (10:39)
[2021-10-21] MEDS: FERROUS SULFATE (325 MG) 325 MG/TAB TABLET PO SCH ×2 (10:39→18:18)
[2021-10-21] MEDS: GENTAMICIN 0.1% OINT 15 GM TUBE TP SCH ×2 (10:39→18:18)
[2021-10-21] MEDS: DEXAMETHASONE SOD PHOSPHATE 10 MG/ML VIAL IV SCH (10:39)
[2021-10-21] MEDS: AMMONIUM LACTATE 227 GM BOTTLE TP SCH ×2 (10:40→18:18)
[2021-10-21] MEDS: APIXABAN 5 MG TABLET PO SCH ×2 (10:40→18:19)
[2021-10-21] MEDS: MEROPENEM 500 MG in IV NS 0.9% 100 ML IV SCH ×2 (11:14→22:49)
[2021-10-21] MEDS: IV NS 0.9% 250 ML IV PRN (11:17)
[2021-10-21] MEDS: JEVITY 1.2 CAL 1,000 ML BOTTLE GT PRN (16:38)
[2021-10-21] MEDS: ATORVASTATIN 10 MG TABLET PO SCH (18:17)
[2021-10-22] VITALS (25 sets, daily range): BP systolic 102–135; BP diastolic 53–80
[2021-10-22] MEDS ORDERED: DC PROPOFOL WHEN EXTUBATED XX PRN (08:00)
[2021-10-22] MEDS: FERROUS SULFATE (325 MG) 325 MG/TAB TABLET PO SCH ×2 (08:35→17:49)
[2021-10-22] MEDS: PANTOPRAZOLE 40 MG/PACK PACK NG SCH (08:35)
[2021-10-22] MEDS: DEXAMETHASONE SOD PHOSPHATE 10 MG/ML VIAL IV SCH (08:36)
[2021-10-22] MEDS: APIXABAN 5 MG TABLET PO SCH ×2 (08:37→17:50)
[2021-10-22] MEDS: GENTAMICIN 0.1% OINT 15 GM TUBE TP SCH ×2 (08:38→17:51)
[2021-10-22] MEDS: AMMONIUM LACTATE 227 GM BOTTLE TP SCH ×2 (08:39→17:51)
[2021-10-22 08:56] LABS: ABG BASE EXCESS -1.1 mmol/L; ABG OXYGEN SATURATION 97.4 % (92.0-98.5); ABG PCO2 32.6 mmHg (35.0-45.0); ABG PH 7.451 (7.350-7.450); ABG PO2 97.8 mmHg (75.0-100.0); AaDO2 149.9 mmHg; COHb 0.3 % (0.5-1.5); MetHb 0.2 % (0.0-1.5); O2Hb 96.9 % (94.0-97.0); SITE, ABG Right Radial; VENT MODE, BG simv 4 ps10 +5 40%
[2021-10-22] MEDS: METOPROLOL TARTRATE 25 MG TABLET PO SCH ×2 (09:33→21:00)
--- NOTE | 2021-10-22 09:58 | NUR ---
S/P EXTUBATION; NO ACUTE DISTRESS NOTED AT THIS TIME.
--- NOTE | 2021-10-22 10:55 | NUR ---
DR. CAPPS SEEN PATIENT NO NEW ORDER AT THIS TIME.
[2021-10-22] MEDS: MEROPENEM 500 MG in IV NS 0.9% 100 ML IV SCH ×2 (11:15→23:21)
[2021-10-22] MEDS: IV NS 0.9% 250 ML IV PRN (11:16)
[2021-10-22] MEDS: JEVITY 1.2 CAL 1,000 ML BOTTLE GT PRN (11:44)
--- NOTE | 2021-10-22 12:20 | NUR ---
SPOKE WITH SHAHID ([place]) AND MADE AWARE OF THE RESTRAINT AND OKAYED IT.
--- NOTE | 2021-10-22 13:54 | NUR ---
[facility] PHARMACIST CALLED AND STATED " HOLD EPOGEN DUE TODAY."
[2021-10-22] MEDS: EPOETIN ALFA-EPBX 10,000 UNIT/ML VIAL SQ SCH (15:00)
[2021-10-22] MEDS: ATORVASTATIN 10 MG TABLET PO SCH (17:49)
--- NOTE | 2021-10-22 19:52 | NUR ---
RN OPENING NOTE RECEIVED CARE OF PATIENT FROM AM NURSE, PATIENT SLEEPING, WAKES UP TO LIGHT TOUCH, NON-VERBAL AT THIS TIME. PATIENT S/P EXTUBATION, ON O2 THERAPY VIA NC AT 3L/MIN, BILATERAL CHEST RISE AND FALL NOTED, NO SOB, O2 SAT 100%. PATIENT ON TELE MONITOR READING AFIB, BRADYCARDIC WITH HR OF 54, NO DISTRESS NOTED ON PATIENT. PORTILLO CATH PATENT, DRAINING YELLOW URINE TO GRAVITY. ;EFT HAND SOFT WRIST RESTRAINT IN PLACE, NO SKIN OR CIRCULATORY COMPROMISE NOTED. SAFETY MEASURES IN PLACE. WILL CONTINUE TO MONITOR PATIENT.
--- NOTE | 2021-10-22 21:25 | NUR ---
RN NOTES PATIENT NOTED BRADYCARDIC ON MONITOR WITH HR OF 52. WILL HOLD SCHEDULED 2100 METOPROLOL ADMINISTRATION. WILL CONTINUE TO MONITOR PATIENT.
[2021-10-23] VITALS (27 sets, daily range): BP systolic 110–168; BP diastolic 50–97
[2021-10-23 04:54] LABS: BASOPHILS % (AUTO) 0.1 % (0.0-2.0); EOSINOPHILS % (AUTO) 1.3 % (0.0-6.0); HEMATOCRIT 36 % (39-51); HEMOGLOBIN 11.4 g/dL (13.5-17.5); LYMPHOCYTES # (AUTO) 0.6 K/uL (0.8-4.8); LYMPHOCYTES % (AUTO) 4.9 % (20.0-44.0); MEAN CORPUSCULAR HGB CONC 32 g/dl (31.0-36.0); MEAN CORPUSCULAR VOLUME 91 fL (80-96); MONOCYTES # (AUTO) 1.1 K/uL (0.1-1.30); MONOCYTES % (AUTO) 8.6 % (2.0-12.0); NEUTROPHILS # (AUTO) 10.7 K/uL (1.8-8.9); NEUTROPHILS % (AUTO) 85.1 % (43.0-81.0); PLATELET COUNT (AUTO) 247 K/uL (150-450); WHITE BLOOD COUNT (AUTO) 12.6 K/uL (4.3-11.0)
[2021-10-23 05:08] LABS: CALCIUM, SERUM 8.1 mg/dL (8.5-10.1); CARBON DIOXIDE 30 mmol/L (21-32); CHLORIDE 104 mmol/L (98-107); CREATININE 1.3 mg/dL (0.6-1.3); GLUCOSE 136 mg/dL (74-106); POTASSIUM 4.6 mmol/L (3.5-5.1); SODIUM SERUM 138 mmol/L (136-145); UREA NITROGEN, BLOOD 64 mg/dL (7-18)
[2021-10-23] MEDS: JEVITY 1.2 CAL 1,000 ML BOTTLE GT PRN ×2 (06:10→23:00)
--- NOTE | 2021-10-23 07:14 | NUR ---
RN NOTES WILL ENDORSE CARE OF PATIENT TO AM NURSE. NO SIGNIFICANT FINDINGS UPON ALL NURSING ASSESSMENTS. ALL DUE MEDS GIVEN. PATIENT NEEDS ANTICIPATED AND MET THROUGHOUT SHIFT. SAFETY MEASURES KEPT IN PLACE. WILL ENDORSE TO AM NURSE FOR CONTINUITY OF CARE.
--- NOTE | 2021-10-23 07:30 | NUR ---
RN NOTE RECEIVED PT IN BED RESTING. PT IS LEHTARGIC, OPENS EYES TO PAINFUL STIMULI AND MOVES WHEN NAME CALLED. PT IS ON 3L OF O2 VIA NC SHOWING NO S/SX OF RESP DISTRESS. BREATHING EVEN AND UNLABORED. PT IS ON AGENCY SERVICE REPRESENTATIVE SHOWING A-FIB. PORTILLO CATH NOTED DRAINING YELLOW COLORED URINE. NGT NOTED ON LEFT NARE RUNNING JEVITY AT 65 CC/HR. PT TOLERATING WELL. ALL SAFETY MEASURES IMPLEMENTED. WILL CONTINUE TO MONITOR AND ASSESS FOR ANY CHANGES DURING SHIFT.
[2021-10-23] MEDS: METOPROLOL TARTRATE 25 MG TABLET PO SCH ×2 (08:23→20:47)
--- NOTE | 2021-10-23 08:24 | NUR ---
RN NOTE HELD LOPRESSOR D/T LOW HR OF 57.
[2021-10-23] MEDS: PANTOPRAZOLE 40 MG/PACK PACK NG SCH (08:25)
[2021-10-23] MEDS: DEXAMETHASONE SOD PHOSPHATE 10 MG/ML VIAL IV SCH (08:26)
[2021-10-23] MEDS: FERROUS SULFATE (325 MG) 325 MG/TAB TABLET PO SCH ×2 (08:26→16:26)
[2021-10-23] MEDS: APIXABAN 5 MG TABLET PO SCH ×2 (08:27→16:26)
[2021-10-23] MEDS: AMMONIUM LACTATE 227 GM BOTTLE TP SCH ×2 (08:28→16:27)
[2021-10-23] MEDS: GENTAMICIN 0.1% OINT 15 GM TUBE TP SCH ×2 (08:28→16:27)
--- NOTE | 2021-10-23 08:30 | NUR ---
RN NOTE UNABLE TO GET TEMPERATURE. BEARHUGGER APPLIED TO PT. WILL CONTINUE TO MONITOR.
[2021-10-23] MEDS: MEROPENEM 500 MG in IV NS 0.9% 100 ML IV SCH ×2 (11:16→22:36)
--- NOTE | 2021-10-23 12:59 | NUR ---
RN NOTE PT TEMPERATURE IMPROVING. CURRENT TEMPERATURE VIA AXILLARY IS 97.5 WILL CONTINUE TO MONITOR.
[2021-10-23] MEDS: ATORVASTATIN 10 MG TABLET PO SCH (17:18)
--- NOTE | 2021-10-23 18:34 | NUR ---
RN NOTE PT CURRENTLY IN BED RESTING. PT IS NOW ON 2L OF O2 VIA NC SHOWING NO S/SX OF RESP DISTRESS/SOB. 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 URINE OUTPUT DURING SHIFT WAS 520 ML. NGT ON LEFT NARE RUNNING JEVITY AT 65 CC/HR. PT TOLERATING WELL. BEAR HUGGER TAKEN OFF PATIENT, PT LATEST TEMPERATURE WAS 98.3. ALL SAFETY MEASURES IMPLEMENTED THROUGHOUT SHIFT. PT KEPT CLEAN AND COMFORTABLE. WILL ENDORSE TO EVENING RN FOR SRIDHAR.
[2021-10-24] VITALS (26 sets, daily range): BP systolic 83–147; BP diastolic 42–77
--- NOTE | 2021-10-24 06:40 | NUR ---
RN CLOSING NOTE PATIENT RESTING IN BED. ALERT TO NAME. OXYGEN 2.5L VIA NC. PAIN TO TOUCH ON RUE. CONTROLLED AFIB ON THE MONITOR. PORTILLO CATHETER DRAINING TO GRAVITY, OUTPUT YELLOW. BMX1. SACRAL DTI WOUND CARE DONE. LEFT NARE NG TUBE RUNNING JEVITY @65ML/HR, NO RESIDUAL. LEFT WRIST IN RESTRAINT. FEDERICO PICC RUNNING TKO. BED IS LOW AND LOCKED, HOB ELEVATED IN SEMI FOWLERS, SIDE RIALS UP, CALL LIGHT WITHIN REACH.
--- NOTE | 2021-10-24 07:57 | NUR ---
RN NOTE RECEIVED PT ASLEEP IN BED, RESPONSIVE TO STIMULI, IN O2 @2.5L VIA NC. NOT IN RESPI DISTRESS. ON TELE MONITOR SHOWING CONTROLLED AFIB. HOB ELEVATED, ASPIRATION PREC FOLLOWED. GT IN PLACE WITH FEEDING JEVITY 1.2 @ 65CC/HR. V/S STABLE. WILL CONTINUE TO MONITOR. SAFETY MEASURES MAINTAINED.
[2021-10-24] MEDS: PANTOPRAZOLE 40 MG/PACK PACK NG SCH (08:13)
[2021-10-24] MEDS: FERROUS SULFATE (325 MG) 325 MG/TAB TABLET PO SCH ×2 (08:14→17:21)
[2021-10-24] MEDS: METOPROLOL TARTRATE 25 MG TABLET PO SCH ×2 (08:14→20:07)
[2021-10-24] MEDS: APIXABAN 5 MG TABLET PO SCH ×2 (08:14→17:23)
[2021-10-24] MEDS: AMMONIUM LACTATE 227 GM BOTTLE TP SCH ×2 (08:16→17:24)
[2021-10-24] MEDS: GENTAMICIN 0.1% OINT 15 GM TUBE TP SCH ×2 (08:17→17:24)
[2021-10-24 09:14] LABS: EOSINOPHILS % (AUTO) 1.9 % (0.0-6.0); HEMATOCRIT 35 % (39-51); LYMPHOCYTES # (AUTO) 0.5 K/uL (0.8-4.8); LYMPHOCYTES % (AUTO) 4.4 % (20.0-44.0); MEAN CORPUSCULAR HGB CONC 32 g/dl (31.0-36.0); MEAN CORPUSCULAR VOLUME 92 fL (80-96); MONOCYTES # (AUTO) 1.1 K/uL (0.1-1.30); MONOCYTES % (AUTO) 9.7 % (2.0-12.0); NEUTROPHILS # (AUTO) 9.4 K/uL (1.8-8.9); PLATELET COUNT (AUTO) 276 K/uL (150-450); WHITE BLOOD COUNT (AUTO) 11.2 K/uL (4.3-11.0)
[2021-10-24 09:22] LABS: ABG BASE EXCESS 2.2 mmol/L; ABG OXYGEN SATURATION 97.4 % (92.0-98.5); ABG PCO2 58.1 mmHg (35.0-45.0); ABG PH 7.321 (7.350-7.450); AaDO2 59.2 mmHg; COHb 0.3 % (0.5-1.5); MetHb 0.2 % (0.0-1.5); O2Hb 96.9 % (94.0-97.0); SITE, ABG Left Radial; VENT MODE, BG 3LPM NC
[2021-10-24 10:01] LABS: ALBUMIN 1.8 g/dL (3.4-5.0); BILIRUBIN,TOTAL 0.2 mg/dL (0.2-1.0); CALCIUM, SERUM 8.3 mg/dL (8.5-10.1); TOTAL PROTEIN, SERUM 5.5 g/dL (6.4-8.2)
--- NOTE | 2021-10-24 11:00 | NUR ---
RT BIPAP INITIATED PER DR PETTY SHAW. LARGE MASK. SETTINGS AND ALARMS CHECKED AND AUDIBLE. Addendum: 10/24/21 at 1135 by ROSA OSBORNE RT Amended: Links added.
[2021-10-24 11:26] LABS: BAND % (MANUAL) 1 % (0.0-5.0); EOSINOPHILS % (MANUAL) 6 % (0-4); LYMPHOCYTES % (MANUAL) 5 % (16-48); MONOCYTES % (MANUAL) 7 % (0-11.0); NEUTROPHILS % (MANUAL) 81 (42-76)
[2021-10-24] MEDS: MEROPENEM 500 MG in IV NS 0.9% 100 ML IV SCH ×2 (11:47→23:10)
[2021-10-24 14:13] LABS: ABG BASE EXCESS 1.1 mmol/L; ABG OXYGEN SATURATION 94.5 % (92.0-98.5); ABG PCO2 42.3 mmHg (35.0-45.0); ABG PH 7.406 (7.350-7.450); ABG PO2 68.6 mmHg (75.0-100.0); AaDO2 95.6 mmHg; COHb 0.4 % (0.5-1.5); MetHb 0.2 % (0.0-1.5); O2Hb 93.9 % (94.0-97.0); SITE, ABG Left Radial
[2021-10-24] MEDS: FUROSEMIDE 20 MG/2 ML VIAL IV SCH ×2 (14:41→17:21)
[2021-10-24] MEDS: ATORVASTATIN 10 MG TABLET PO SCH (17:27)
--- NOTE | 2021-10-24 19:30 | NUR ---
RN NOTE Received patient in bed, lethargic, responsive to touch. Breathing even and unlabored. patient currently on bipap. tolerating well O2 saturation >96 percent via bedside monitor. hob elevated 30 degrees. skin cool and dry to touch. provided with extra warm blankets. On tele monitoring. no s/s of distress. right upper arm picc line intact. indwelling meraz catheter intact, draining yellow urine by gravity. no s/s of bleeding at this time. NGT in place. Infusing jevity at 65 cc/hr. no residual. assisted with turning and repositioning. bed low, in locked positioning. call light within reach. will continue to monitor.
--- NOTE | 2021-10-24 19:54 | NUR ---
RCVD PT ON BIPAP 15/5, RATE 16, FIO2 30%. SETTINGS TOLERATED WELL. NO RESPIRATORY DISTRESS NOTED AT THIS TIME. WILL CONTINUE TO MONITOR T/O SHIFT.
--- NOTE | 2021-10-24 19:56 | NUR ---
RN NOTE PT RESTING ASLEEP IN BED, RESPONSIVE TO STIMULI, IN BIPAP, WITH SETTINGS TOLERATED WELL. NOT IN RESPI DISTRESS. ON TELE MONITOR SHOWING CONTROLLED AFIB. HOB ELEVATED, ASPIRATION PREC FOLLOWED. GT IN PLACE WITH FEEDING JEVITY 1.2 @ 65CC/HR. V/S STABLE. WILL CONTINUE TO MONITOR. DUE MEDICATIONS GIVEN, AM/PM CARE DONE. SAFETY MEASURES MAINTAINED.
[2021-10-24] MEDS: JEVITY 1.2 CAL 1,000 ML BOTTLE GT PRN (20:25)
[2021-10-25] VITALS (24 sets, daily range): BP systolic 94–147; BP diastolic 49–95
[2021-10-25 04:26] LABS: BASOPHILS % (AUTO) 0.2 % (0.0-2.0); EOSINOPHILS % (AUTO) 3.1 % (0.0-6.0); HEMATOCRIT 36 % (39-51); HEMOGLOBIN 11.4 g/dL (13.5-17.5); LYMPHOCYTES # (AUTO) 0.8 K/uL (0.8-4.8); LYMPHOCYTES % (AUTO) 6.8 % (20.0-44.0); MEAN CORPUSCULAR HGB CONC 32 g/dl (31.0-36.0); MEAN CORPUSCULAR VOLUME 91 fL (80-96); MONOCYTES # (AUTO) 0.9 K/uL (0.1-1.30); MONOCYTES % (AUTO) 8.2 % (2.0-12.0); NEUTROPHILS # (AUTO) 9.2 K/uL (1.8-8.9); NEUTROPHILS % (AUTO) 81.7 % (43.0-81.0); PLATELET COUNT (AUTO) 303 K/uL (150-450); RED BLOOD CELL COUNT(AUTO) 3.92 MIL/uL (4.5-6.0); WHITE BLOOD COUNT (AUTO) 11.2 K/uL (4.3-11.0)
[2021-10-25 04:33] LABS: CALCIUM, SERUM 8.6 mg/dL (8.5-10.1); CARBON DIOXIDE 29 mmol/L (21-32); CHLORIDE 106 mmol/L (98-107); CREATININE 0.9 mg/dL (0.6-1.3); GLUCOSE 96 mg/dL (74-106); POTASSIUM 4.2 mmol/L (3.5-5.1); SODIUM SERUM 140 mmol/L (136-145); UREA NITROGEN, BLOOD 59 mg/dL (7-18)
[2021-10-25 04:40] LABS: ALANINE AMINOTRANSFERASE 35 U/L (12-78); ALBUMIN 1.8 g/dL (3.4-5.0); ALKALINE PHOSPHATASE 86 U/L (46-116); ASPARTATE AMINOTRANSFERASE 29 U/L (15-37); BILIRUBIN,TOTAL 0.1 mg/dL (0.2-1.0); TOTAL PROTEIN, SERUM 5.5 g/dL (6.4-8.2)
[2021-10-25 05:17] LABS: BAND % (MANUAL) 1 % (0.0-5.0); BASOPHILS % (MANUAL) 0 % (0.0-2.0); EOSINOPHILS % (MANUAL) 3 % (0-4); LYMPHOCYTES % (MANUAL) 9 % (16-48); MONOCYTES % (MANUAL) 8 % (0-11.0); NEUTROPHILS % (MANUAL) 79 (42-76)
--- NOTE | 2021-10-25 07:43 | NUR ---
RN OPENING NOTE RECEIVED PT RESTING ASLEEP IN BED, RESPONSIVE TO STIMULI, IN BIPAP, WITH SETTINGS TOLERATED WELL. NOT IN RESPI DISTRESS. ON TELE MONITOR SHOWING CONTROLLED AFIB. HOB ELEVATED, ASPIRATION PREC FOLLOWED. GT IN PLACE WITH FEEDING JEVITY 1.2 @ 30CC/HR. GOAL IS 65ML.HR. V/S STABLE. ALL SAFETY MEASURES IN PLACE. WILL CONTINUE TO MONITOR THROUGHOUT SHIFT.
[2021-10-25] MEDS: FERROUS SULFATE (325 MG) 325 MG/TAB TABLET PO SCH ×2 (08:26→16:22)
[2021-10-25] MEDS: METOPROLOL TARTRATE 25 MG TABLET PO SCH ×2 (08:26→20:21)
[2021-10-25] MEDS: FUROSEMIDE 20 MG/2 ML VIAL IV SCH ×2 (08:26→16:22)
[2021-10-25] MEDS: PANTOPRAZOLE 40 MG/PACK PACK NG SCH (08:26)
[2021-10-25] MEDS: APIXABAN 5 MG TABLET PO SCH (08:27)
[2021-10-25] MEDS: AMMONIUM LACTATE 227 GM BOTTLE TP SCH ×2 (08:39→16:24)
[2021-10-25] MEDS: GENTAMICIN 0.1% OINT 15 GM TUBE TP SCH ×2 (08:39→16:24)
[2021-10-25] MEDS: MEROPENEM 500 MG in IV NS 0.9% 100 ML IV SCH ×2 (10:24→22:34)
[2021-10-25] MEDS: ATORVASTATIN 10 MG TABLET PO SCH (17:14)
--- NOTE | 2021-10-25 19:09 | NUR ---
RN CLOSING NOTE PT RESTING ASLEEP IN BED, RESPONSIVE TO STIMULI, IN BIPAP, WITH SETTINGS TOLERATED WELL. NOT IN RESPI DISTRESS. ON TELE MONITOR SHOWING CONTROLLED AFIB. HOB ELEVATED, ASPIRATION PREC FOLLOWED. GT IN PLACE WITH FEEDING JEVITY 1.2 @ 55 ML/HR. NO RESIDUAL NOTED. V/S STABLE. ALL SAFETY MEASURES IN PLACE. WILL ENDORSE TO DRIED FRUIT WASHER RN FOR SRIDHAR.
--- NOTE | 2021-10-25 19:30 | NUR ---
RN NOTE RECEIVED PATIENT IN BED, AROUSABLE TO NAME AND TOUCH. No respiratory distress at this time. On bipap. tolerating well o2 saturation >94 percent. on tele monitoring. skin cool and dry to touch. right upper arm picc line intact. indwelling meraz catheter draining yellow urine by gravity. ngt in place. verified placement via auscultation. currently infusing jevity at 50 cc/hr. no residual. will increase as tolerated. bed low, in locked position. will continue to monitor. call light within reach.
[2021-10-25] MEDS: ACETAMINOPHEN 650 MG/20.3 ML UDC NG PRN (21:07)
--- NOTE | 2021-10-25 22:00 | NUR ---
RN NOTE Noted patient moaning with V/S changes and occasional facial grimacing. Assisted with turning and repositioning. No relief. Administered Tylenol PRN via NGT.
--- NOTE | 2021-10-25 23:48 | NUR ---
RECEIVED PT ON BIPAP. PT TOLERATING SETTINGS. WILL CONTINUE TO MONITOR. Addendum: 10/25/21 at 2349 by ALONZO VERA RT Amended: Links added.
[2021-10-26] VITALS (24 sets, daily range): BP systolic 95–165; BP diastolic 48–90
[2021-10-26 04:06] LABS: BASOPHILS % (AUTO) 0.3 % (0.0-2.0); EOSINOPHILS % (AUTO) 1.4 % (0.0-6.0); HEMATOCRIT 38 % (39-51); HEMOGLOBIN 12.3 g/dL (13.5-17.5); LYMPHOCYTES # (AUTO) 1.1 K/uL (0.8-4.8); LYMPHOCYTES % (AUTO) 7.9 % (20.0-44.0); MEAN CORPUSCULAR HGB CONC 32 g/dl (31.0-36.0); MEAN CORPUSCULAR VOLUME 90 fL (80-96); MONOCYTES # (AUTO) 0.8 K/uL (0.1-1.30); MONOCYTES % (AUTO) 6.1 % (2.0-12.0); NEUTROPHILS # (AUTO) 11.6 K/uL (1.8-8.9); NEUTROPHILS % (AUTO) 84.3 % (43.0-81.0); PLATELET COUNT (AUTO) 338 K/uL (150-450); RED BLOOD CELL COUNT(AUTO) 4.27 MIL/uL (4.5-6.0); WHITE BLOOD COUNT (AUTO) 13.7 K/uL (4.3-11.0)
[2021-10-26 04:56] LABS: ALANINE AMINOTRANSFERASE 36 U/L (12-78); ALKALINE PHOSPHATASE 100 U/L (46-116); ASPARTATE AMINOTRANSFERASE 27 U/L (15-37); BILIRUBIN,TOTAL 0.6 mg/dL (0.2-1.0); CALCIUM, SERUM 8.5 mg/dL (8.5-10.1); GLUCOSE 137 mg/dL (74-106); TOTAL PROTEIN, SERUM 6.1 g/dL (6.4-8.2); UREA NITROGEN, BLOOD 56 mg/dL (7-18)
[2021-10-26 05:33] LABS: CARBON DIOXIDE 31 mmol/L (21-32); CHLORIDE 104 mmol/L (98-107); POTASSIUM 3.3 mmol/L (3.5-5.1); SODIUM SERUM 143 mmol/L (136-145)
[2021-10-26] MEDS: JEVITY 1.2 CAL 1,000 ML BOTTLE GT PRN (07:59)
[2021-10-26] MEDS: PANTOPRAZOLE 40 MG/PACK PACK NG SCH (08:00)
[2021-10-26] MEDS: FERROUS SULFATE (325 MG) 325 MG/TAB TABLET PO SCH ×2 (08:00→17:42)
[2021-10-26] MEDS: METOPROLOL TARTRATE 25 MG TABLET PO SCH ×2 (08:01→21:34)
[2021-10-26] MEDS: FUROSEMIDE 20 MG/2 ML VIAL IV SCH ×2 (08:02→17:43)
[2021-10-26] MEDS: GENTAMICIN 0.1% OINT 15 GM TUBE TP SCH ×2 (08:04→17:45)
[2021-10-26] MEDS: AMMONIUM LACTATE 227 GM BOTTLE TP SCH ×2 (08:04→17:44)
[2021-10-26 09:19] LABS: ABG BASE EXCESS 4.1 mmol/L; ABG OXYGEN SATURATION 94.1 % (92.0-98.5); ABG PCO2 39.7 mmHg (35.0-45.0); ABG PH 7.467 (7.350-7.450); ABG PO2 71.8 mmHg (75.0-100.0); AaDO2 30.4 mmHg; COHb 0.5 % (0.5-1.5); MetHb 0.1 % (0.0-1.5); O2Hb 93.5 % (94.0-97.0); SITE, ABG Left Radial; VENT MODE, BG RA
[2021-10-26] MEDS ORDERED: POTASSIUM CHLORIDE 20 MEQ POWDER PACKET GT SCH (10:00)
[2021-10-26] MEDS: MEROPENEM 500 MG in IV NS 0.9% 100 ML IV SCH (10:21)
--- NOTE | 2021-10-26 11:44 | NUR ---
RN NOTES: PATIENT IS BACK FROM CT SCAN PROCEDURE IN STABLE CONDITION. NO SSx OF ACUTE DISTRESS NOTED.
[2021-10-26] MEDS: ATORVASTATIN 10 MG TABLET PO SCH (17:42)
[2021-10-26] MEDS: IV NS 0.9% 250 ML IV PRN (17:44)
[2021-10-26] MEDS: APIXABAN 5 MG TABLET GT SCH (17:56)
--- NOTE | 2021-10-26 20:00 | NUR ---
Received patient lethargic non verbal in no acute distress.VSS.Afib controlled. Respiration even and unlabored on RA.NGT feeding in progress.NGT placement verified .No residual noted. Maintained HOB elevated.FC to gravity.NS infusing at TKO via FEDERICO PIcc line.Site intact.Patient turned and repositioned to comfort off loading pressure points.
--- NOTE | 2021-10-26 23:42 | NUR ---
PT PLACED ON NOC BIPAP RN NOTIFIED
[2021-10-27] VITALS (24 sets, daily range): BP systolic 108–151; BP diastolic 47–79
[2021-10-27] MEDS: JEVITY 1.2 CAL 1,000 ML BOTTLE GT PRN (05:13)
[2021-10-27 05:18] LABS: BASOPHILS % (AUTO) 0.2 % (0.0-2.0); EOSINOPHILS % (AUTO) 2.8 % (0.0-6.0); HEMATOCRIT 35 % (39-51); HEMOGLOBIN 11.5 g/dL (13.5-17.5); LYMPHOCYTES # (AUTO) 0.7 K/uL (0.8-4.8); LYMPHOCYTES % (AUTO) 4.7 % (20.0-44.0); MEAN CORPUSCULAR HGB CONC 33 g/dl (31.0-36.0); MEAN CORPUSCULAR VOLUME 91 fL (80-96); MONOCYTES # (AUTO) 0.7 K/uL (0.1-1.30); MONOCYTES % (AUTO) 5.2 % (2.0-12.0); NEUTROPHILS % (AUTO) 87.1 % (43.0-81.0); PLATELET COUNT (AUTO) 310 K/uL (150-450); RED BLOOD CELL COUNT(AUTO) 3.87 MIL/uL (4.5-6.0); WHITE BLOOD COUNT (AUTO) 13.7 K/uL (4.3-11.0)
--- NOTE | 2021-10-27 05:29 | NUR ---
PT TAKEN OFF NOC BIPAP.
[2021-10-27 05:30] LABS: CALCIUM, SERUM 8.6 mg/dL (8.5-10.1); CARBON DIOXIDE 34 mmol/L (21-32); CHLORIDE 106 mmol/L (98-107); CREATININE 0.8 mg/dL (0.6-1.3); GLUCOSE 125 mg/dL (74-106); POTASSIUM 3.5 mmol/L (3.5-5.1); SODIUM SERUM 145 mmol/L (136-145); UREA NITROGEN, BLOOD 57 mg/dL (7-18)
[2021-10-27 05:35] LABS: ALANINE AMINOTRANSFERASE 30 U/L (12-78); ALBUMIN 1.9 g/dL (3.4-5.0); ALKALINE PHOSPHATASE 94 U/L (46-116); ASPARTATE AMINOTRANSFERASE 30 U/L (15-37); BILIRUBIN,TOTAL 0.3 mg/dL (0.2-1.0); TOTAL PROTEIN, SERUM 5.8 g/dL (6.4-8.2)
--- NOTE | 2021-10-27 06:00 | NUR ---
Patient resting in no acute distress.VSS remains stable.Was placed on BIPAP during the night by RT. Well tolerated.Am care done.Turned and repositioned.No significant changes noted during the shift. RT unable to collect sputum speciment patient dry.Will endorse to day shit for SRIDHAR.
--- NOTE | 2021-10-27 07:30 | NUR ---
RN NOTES PT FOUND, APPEARS TO BE SLEEPING, SEMI FOWLERS DISPLAYING NO S/S OF DISTRESS, FLACC = 0 AND BREATHING IS EVEN AND UNLABORED ON RA. JEVITY 1.2 RUNNING @ 65 ML/HR, RESIDUAL WILL BE ASSESSED SOON. R PICC IS PATIENT AND INTACT. PORTILLO CATH RESERVOIR BELOW PATIENT DRAINING BY GRAVITY. RN WILL CONTINUE CARE PLAN AND ANTICIPATE NEEDS. SAFETY MEASURES IN PLACE, BED LOCKED AND IN LOWEST POSITION, SIDE RAILS UPX2, CALL LIGHT WITHIN REACH, BED ALARM ARMED.
[2021-10-27] MEDS: FERROUS SULFATE (325 MG) 325 MG/TAB TABLET PO SCH ×2 (08:23→17:28)
[2021-10-27] MEDS: FUROSEMIDE 20 MG/2 ML VIAL IV SCH ×2 (08:23→17:28)
[2021-10-27] MEDS: PANTOPRAZOLE 40 MG/PACK PACK NG SCH (08:23)
[2021-10-27] MEDS: AMMONIUM LACTATE 227 GM BOTTLE TP SCH ×2 (08:25→17:29)
[2021-10-27] MEDS: METOPROLOL TARTRATE 25 MG TABLET PO SCH ×2 (08:25→20:29)
[2021-10-27] MEDS: GENTAMICIN 0.1% OINT 15 GM TUBE TP SCH ×2 (08:26→17:29)
[2021-10-27] MEDS: APIXABAN 5 MG TABLET GT SCH ×2 (08:27→17:30)
[2021-10-27] MEDS: ATORVASTATIN 10 MG TABLET PO SCH (17:28)
--- NOTE | 2021-10-27 19:30 | NUR ---
RN NOTES PT FOUND SEMI FOWLERS DISPLAYING NO S/S OF DISTRESS, FLACC = 0 AND BREATHING IS EVEN AND UNLABORED ON RA. JEVITY 1.2 RUNNING @ 65 ML/HR, LOW RESIDUAL MEASURED THROUGHOUT SHIFT. R UA PICC IS PATIENT AND INTACT. PORTILLO CATH RESERVOIR BELOW PATIENT DRAINING BY GRAVITY. SBAR AND REPORT GIVEN TO GROCERY SUPERVISOR RN. SAFETY MEASURES IN PLACE, BED LOCKED AND IN LOWEST POSITION, SIDE RAILS UPX2, CALL LIGHT WITHIN REACH, BED ALARM ARMED. PT ENDORSED IN STABLE CONDITION FOR SRIDHAR.
--- NOTE | 2021-10-27 19:31 | NUR ---
RT NOTE PT PLACED ON NOC BIPAP D/T SPO2 86-87% SPO2 ABOVE 88% NEEDS TO BE ACHIEVED PER MD ORDERS. NO S/S OF RESPIRATORY DISTRESS NOTED. RN RICHARD NOTIFIED.
--- NOTE | 2021-10-27 20:00 | NUR ---
DIGITAL CONTENT COORDINATOR RENDERED ORAL CARE; REMOVED LARGE CRUSTY PARTICLES FROM MOUTH.
[2021-10-28] VITALS (24 sets, daily range): BP systolic 102–168; BP diastolic 61–96
[2021-10-28] MEDS: JEVITY 1.2 CAL 1,000 ML BOTTLE GT PRN ×2 (03:20→20:59)
--- NOTE | 2021-10-28 06:05 | NUR ---
RT NOTE PT REMOVED FROM NOC MARGARITAAP. ON ROOM AIR. APO2 997-98% HR 66-68. NO S/S OF ACUTE RESPIRATORY DISTRESS NOTED. RN NOTIFIED. Addendum: 10/28/21 at 0606 by MAYRA COSTELLO RT CORRECTION SPO2 97%-98% ON ROOM AIR.
--- NOTE | 2021-10-28 07:30 | NUR ---
RN NOTES PT FOUND SEMI FOWLERS DISPLAYING NO S/S OF DISTRESS, PT ENDORSES NO PAIN (FLACC = 0) AND BREATHING IS EVEN AND UNLABORED ON RA. RN SPOKE TO PT IN BOTH [place] AND [place]IZ[place] AND PT RESPONDED, GARBLED LANGUAGE. PREVIOUSLY PT WAS UNRESPONSIVE TO VERBAL STIMULUS. TF VIA NGT ONGOING. R UA PICC IS PATIENT AND INTACT. PORTILLO CATH RESERVOIR BELOW PATIENT DRAINING BY GRAVITY. RN WILL CONTINUE CARE PLAN AND ANTICIPATE NEEDS. SAFETY MEASURES IN PLACE, BED LOCKED AND IN LOWEST POSITION, SIDE RAILS UPX2, CALL LIGHT WITHIN REACH, BED ALARM ARMED.
[2021-10-28] MEDS: PANTOPRAZOLE 40 MG/PACK PACK NG SCH (08:28)
[2021-10-28] MEDS: FERROUS SULFATE (325 MG) 325 MG/TAB TABLET PO SCH ×2 (08:28→17:45)
[2021-10-28] MEDS: FUROSEMIDE 20 MG/2 ML VIAL IV SCH ×2 (08:28→17:00)
[2021-10-28] MEDS: APIXABAN 5 MG TABLET GT SCH ×2 (08:28→17:46)
[2021-10-28] MEDS: METOPROLOL TARTRATE 25 MG TABLET PO SCH ×2 (08:29→20:00)
[2021-10-28] MEDS: AMMONIUM LACTATE 227 GM BOTTLE TP SCH ×2 (08:30→17:48)
[2021-10-28] MEDS: GENTAMICIN 0.1% OINT 15 GM TUBE TP SCH ×2 (08:30→17:48)
[2021-10-28 10:54] LABS: BASOPHILS % (AUTO) 0.3 % (0.0-2.0); HEMATOCRIT 36 % (39-51); HEMOGLOBIN 11.3 g/dL (13.5-17.5); LYMPHOCYTES # (AUTO) 0.7 K/uL (0.8-4.8); LYMPHOCYTES % (AUTO) 5.1 % (20.0-44.0); MEAN CORPUSCULAR HGB CONC 31 g/dl (31.0-36.0); MEAN CORPUSCULAR VOLUME 92 fL (80-96); MONOCYTES # (AUTO) 0.8 K/uL (0.1-1.30); MONOCYTES % (AUTO) 5.5 % (2.0-12.0); NEUTROPHILS # (AUTO) 12.7 K/uL (1.8-8.9); NEUTROPHILS % (AUTO) 87.1 % (43.0-81.0); PLATELET COUNT (AUTO) 308 K/uL (150-450); RED BLOOD CELL COUNT(AUTO) 3.93 MIL/uL (4.5-6.0); WHITE BLOOD COUNT (AUTO) 14.6 K/uL (4.3-11.0)
[2021-10-28 11:15] LABS: CALCIUM, SERUM 8.7 mg/dL (8.5-10.1); CREATININE 0.8 mg/dL (0.6-1.3)
[2021-10-28 11:18] LABS: POTASSIUM 2.6 mmol/L (3.5-5.1)
[2021-10-28 11:19] LABS: BILIRUBIN,TOTAL 0.3 mg/dL (0.2-1.0); TOTAL PROTEIN, SERUM 6.1 g/dL (6.4-8.2)
[2021-10-28] MEDS: POTASSIUM CL. PREMIX PERIPHER. 50 ML IV SCH ×7 (12:53→22:59)
[2021-10-28] MEDS: MODAFINIL 100 MG TABLET PO SCH (12:54)
--- NOTE | 2021-10-28 15:00 | NUR ---
FOR SBP >160 DR. CUNHA ORDER 10MG HYDRALAZINE Q6 PRN
[2021-10-28] MEDS: ATORVASTATIN 10 MG TABLET PO SCH (18:19)
--- NOTE | 2021-10-28 19:08 | NUR ---
ICU CLOSING PT IN STABLE CONDITION A/O X2 ABLE TO FOLLOW COMMANDS BUT STILL LETHARGIC. ON BEDSIDE MONITOR W/ CONTROLED AFIB @76BPM. PORTILLO CATHETER DRAINED AND PATENT WITH YELLOW FUILD DRAINING 1300ML OUTPUT. NG TUBE IN PLACE AND PATENT RUNNING JEVITY @65ML/ HR RIGHT UPPER ARM PICC LINE PATENTS AND NO SXS OF INFILTRATION. PER ORDER FUROSIMIDE DC AND BIPAP DC PER DR. BENITEZ. BED IN LOWEST POSITION X3 SIDE RAILS UP LOW FOWLERS REPORT GIVEN TO RICHARD
--- NOTE | 2021-10-28 19:30 | NUR ---
LODE MINER BLASTING UNABLE TO FLUSH NG TUBE NOTED MEDICATIONS STUCK IN TERI VALVE; REPLACED TERI VALVE AT THIS TIME.
--- NOTE | 2021-10-28 19:55 | NUR ---
INSPECTOR REPAIRER SANDSTONE LAST URINE OUTPUT NOTED WAS AT 1600 PORTILLO FLUSHED WITH 200 ML DARK YELLOW URINE NOTED
--- NOTE | 2021-10-28 20:11 | NUR ---
INDEPENDENT LIVING SPECIALIST PER CLARIFICATION WITH CHARGE NURSE WHO SPOKE WITH PRIMARY NURSE 40 mEq OF POTASSIUM IV WERE GIVEN HOWEVER WERE NOT SCANNED. WILL CONTINUE GIVING POTASSIUM AT 2100 WAS ORDERED FOR MACHINE TANK OPERATOR; WILL SCAN THE 1430 DOSE DAY SHIFT SCANNED THE MACHINE TANK OPERATOR DOSE AND CONTINUE THE MACHINE TANK OPERATOR ORDER ACCPRDINGLY.
--- NOTE | 2021-10-28 21:09 | NUR ---
CALL WORKER PT SBP TRENDING 150-160; PREVIOUS NOTE STATES THERE IS AN ORDER FOR HYDRALAZINE; NO RECORD OF MEDICATION BEING ADMINISTERED OR ORDERED; OBTAINED ORDER AT THIS TIME FOR HYDRALAZINE WILL ADMINISTER ACCORDINGLY FOR SBP >160.
[2021-10-28] MEDS: hydrALAZINE HCL IV 20 MG VIAL IV PRN (21:17)
[2021-10-29] VITALS (24 sets, daily range): BP systolic 103–165; BP diastolic 59–95
[2021-10-29] MEDS: POTASSIUM CL. PREMIX PERIPHER. 50 ML IV SCH (00:05)
[2021-10-29] MEDS: hydrALAZINE HCL IV 20 MG VIAL IV PRN (04:19)
[2021-10-29 05:15] LABS: BASOPHILS % (AUTO) 0.2 % (0.0-2.0); EOSINOPHILS % (AUTO) 0.4 % (0.0-6.0); HEMATOCRIT 36 % (39-51); HEMOGLOBIN 11.8 g/dL (13.5-17.5); LYMPHOCYTES # (AUTO) 0.9 K/uL (0.8-4.8); MEAN CORPUSCULAR HGB CONC 33 g/dl (31.0-36.0); MEAN CORPUSCULAR VOLUME 90 fL (80-96); MONOCYTES # (AUTO) 0.9 K/uL (0.1-1.30); MONOCYTES % (AUTO) 5.2 % (2.0-12.0); NEUTROPHILS # (AUTO) 16.3 K/uL (1.8-8.9); NEUTROPHILS % (AUTO) 89.2 % (43.0-81.0); PLATELET COUNT (AUTO) 304 K/uL (150-450); WHITE BLOOD COUNT (AUTO) 18.2 K/uL (4.3-11.0)
[2021-10-29 05:32] LABS: ALANINE AMINOTRANSFERASE 24 U/L (12-78); ALBUMIN 2.1 g/dL (3.4-5.0); ALKALINE PHOSPHATASE 106 U/L (46-116); ASPARTATE AMINOTRANSFERASE 21 U/L (15-37); BILIRUBIN,TOTAL 0.4 mg/dL (0.2-1.0); CALCIUM, SERUM 8.9 mg/dL (8.5-10.1); CARBON DIOXIDE 35 mmol/L (21-32); CHLORIDE 106 mmol/L (98-107); CREATININE 0.9 mg/dL (0.6-1.3); GLUCOSE 165 mg/dL (74-106); POTASSIUM 3.8 mmol/L (3.5-5.1); SODIUM SERUM 146 mmol/L (136-145); TOTAL PROTEIN, SERUM 6.5 g/dL (6.4-8.2); UREA NITROGEN, BLOOD 52 mg/dL (7-18)
--- NOTE | 2021-10-29 06:03 | NUR ---
BOILER HOUSE MECHANIC PT REMAINED OFF BIPAP; SATURATION 90% OR GREATER
--- NOTE | 2021-10-29 07:29 | NUR ---
HOSTAGE NEGOTIATOR OPENING RECEIVED MR SNOW FROM OLI RAMOS, PT ON ROOM AIR SATI'S IN THE MID 90'S VITALS ARE STABLE SPEECH IS MORE CLEAR WITH COMPLETE SENTENCES A/O X2. ON THE BEDSIDE MONITOR READING CONTROLLED AFIB. PORTILLO CATHETER IN PLACE AND DRAINING CLEAR YELLOW URINE. SACRAL WOUND CHANGE IN CONDITION DTI NOW OPEN W/ THE DRESSING INTACT. FEDERICO PICC LINE INTACT AND PATENT FLUSHES FREELY. LABS REVIEWED BUN AND WBC'S ELEVATED. BED IS IN LOWEST POSITION X2 SIDE RAILS ARE UP. WILL CONTINUE TO MONITOR.
[2021-10-29] MEDS: PANTOPRAZOLE 40 MG/PACK PACK NG SCH (08:02)
[2021-10-29] MEDS: FERROUS SULFATE (325 MG) 325 MG/TAB TABLET PO SCH ×2 (08:07→17:36)
[2021-10-29] MEDS: METOPROLOL TARTRATE 25 MG TABLET PO SCH ×2 (08:07→20:58)
[2021-10-29] MEDS: MODAFINIL 100 MG TABLET PO SCH (08:07)
[2021-10-29] MEDS: APIXABAN 5 MG TABLET GT SCH ×2 (08:22→17:39)
--- NOTE | 2021-10-29 09:03 | NUR ---
PATIENT COMPLAINING OF GENERALIZED BODY PAIN GIVEN TYLENOL
[2021-10-29] MEDS: AMMONIUM LACTATE 227 GM BOTTLE TP SCH ×2 (09:26→17:37)
[2021-10-29] MEDS: GENTAMICIN 0.1% OINT 15 GM TUBE TP SCH ×2 (09:26→17:37)
[2021-10-29 12:29] LABS: BILIRUBIN,URINE NEGATIVE (NEGATIVE); COLOR,URINE YELLOW (YELLOW); LEUKOCYTE ESTERASE ,URINE NEGATIVE (NEGATIVE); NITRITE, URINE NEGATIVE (NEGATIVE); PROTEIN,URINE TRACE mg/dl (NEGATIVE); UGLUCOSE NEGATIVE (NEGATIVE)
[2021-10-29 13:02] LABS: BACTERIA,URINE Rare /HPF (None Seen); RBC,URINE 0-2 /HPF (0-2)
[2021-10-29 13:03] LABS: SQUAMOUS EPITHELIAL CELL,UR Few /HPF (None Seen)
[2021-10-29] MEDS: EPOETIN ALFA-EPBX 10,000 UNIT/ML VIAL SQ SCH (14:57)
--- NOTE | 2021-10-29 14:57 | NUR ---
RETACRIT (EPOETIN) HELD PER PARAMETERS HCT >11 PTS HCT IS 11.8
[2021-10-29] MEDS: ACETAMINOPHEN 650 MG/20.3 ML UDC NG PRN (15:06)
[2021-10-29] MEDS: ATORVASTATIN 10 MG TABLET PO SCH (17:36)
--- NOTE | 2021-10-29 17:54 | NUR ---
NG TUBE ADVANCED 10CC PER RADIOLOGY ASSESSMENT AND IMPRESSION NOW @65CM
--- NOTE | 2021-10-29 19:56 | NUR ---
RN NOTE RECEIVED PT SLEEPING, AROUSES TO STIMULI, PAIN ON MOVEMENT. O2 SAT 96% ON ROOM AIR. AFIB CONTROLLED ON TELE MONITOR WITH HR 73. NGT IN PLACE, AUSCULTATED FOR PLACEMENT, ON TUBE FEEDING OF JEVITY AT 65ML/HR. 5ML RESIDUAL, HOB ELEVATED. PORTILLO IN PLACE, DRAINING CLEAR URINE OUTPUT. SACRAL DRESSING INTACT. WILL CONTINUE TO MONITOR.
[2021-10-30] VITALS (21 sets, daily range): BP systolic 117–168; BP diastolic 62–90
[2021-10-30 04:33] LABS: BASOPHILS % (AUTO) 0.3 % (0.0-2.0); EOSINOPHILS % (AUTO) 1.5 % (0.0-6.0); HEMATOCRIT 34 % (39-51); LYMPHOCYTES # (AUTO) 0.8 K/uL (0.8-4.8); LYMPHOCYTES % (AUTO) 5.3 % (20.0-44.0); MEAN CORPUSCULAR HGB CONC 32 g/dl (31.0-36.0); MEAN CORPUSCULAR VOLUME 91 fL (80-96); MONOCYTES % (AUTO) 6.9 % (2.0-12.0); NEUTROPHILS # (AUTO) 12.2 K/uL (1.8-8.9); PLATELET COUNT (AUTO) 284 K/uL (150-450); RED BLOOD CELL COUNT(AUTO) 3.77 MIL/uL (4.5-6.0); WHITE BLOOD COUNT (AUTO) 14.2 K/uL (4.3-11.0)
[2021-10-30 04:41] LABS: CALCIUM, SERUM 8.9 mg/dL (8.5-10.1); CARBON DIOXIDE 38 mmol/L (21-32); CHLORIDE 107 mmol/L (98-107); CREATININE 0.8 mg/dL (0.6-1.3); GLUCOSE 160 mg/dL (74-106); POTASSIUM 3.8 mmol/L (3.5-5.1); SODIUM SERUM 146 mmol/L (136-145); UREA NITROGEN, BLOOD 50 mg/dL (7-18)
[2021-10-30 04:48] LABS: ALANINE AMINOTRANSFERASE 24 U/L (12-78); ALKALINE PHOSPHATASE 102 U/L (46-116); ASPARTATE AMINOTRANSFERASE 16 U/L (15-37); BILIRUBIN,TOTAL 0.3 mg/dL (0.2-1.0); TOTAL PROTEIN, SERUM 6.3 g/dL (6.4-8.2)
--- NOTE | 2021-10-30 06:50 | NUR ---
RN NOTE PT LETHARGIC, RESPONDS TO STIMULI, INTERACTIVE. TOLERATES ROOM AIR. NOT IN ANY DISTRESS. TOLERATES GT FEEDING, NO RESIDUAL NOTED. KEPT HOB ELEVATED. PORTILLO CATH DRAINING WELL. TURNED AND REPOSITIONED, SACRAL WOUND TX DONE ORDERED. WILL ENDORSE TO NEXT SHIFT NURSE FOR SRIDHAR.
--- NOTE | 2021-10-30 07:30 | NUR ---
OPENING NOTE: REPORT RECEIVED FROM KEVIN BAIRD. LABS AND ORDERS REVIEWED DURING REPORT. PT IS ON RA. NG TUBE IN PLACE, TUBE FEEDING INFUSING PER MD ORDERS. PT CHECKED ON HOURLY AND PRN BY NURSING STAFF.
--- NOTE | 2021-10-30 07:36 | NUR ---
WOUND CARE CONSULT: RECEIVED ANOTHER CONSULT FOR SACRAL DEEP TISSUE INJURY WHICH CONTINUES TO EVOLVE AND WAS NOTED TO BE PRESENT ON ADMISSION. PT FOLLOWED BY SURGICAL TEAM. CONCUR WITH CURRENT WOUND TREATMENT ORDERS. DISCUSSED SKIN PROTECTION AND WOUND CARE WITH NURSING STAFF. PT IS ON [place] ISOFLEX LOW AIRLOSS BED. MD IN AGREEMENT WITH PLAN OF CARE.
[2021-10-30] MEDS: PANTOPRAZOLE 40 MG/PACK PACK NG SCH (09:05)
[2021-10-30] MEDS: FERROUS SULFATE (325 MG) 325 MG/TAB TABLET PO SCH ×2 (09:05→17:28)
[2021-10-30] MEDS: MODAFINIL 100 MG TABLET PO SCH (09:05)
[2021-10-30] MEDS: METOPROLOL TARTRATE 25 MG TABLET PO SCH ×2 (09:06→22:02)
[2021-10-30] MEDS: APIXABAN 5 MG TABLET GT SCH ×2 (09:10→17:29)
[2021-10-30] MEDS: AMMONIUM LACTATE 227 GM BOTTLE TP SCH ×2 (09:11→17:28)
[2021-10-30] MEDS: GENTAMICIN 0.1% OINT 15 GM TUBE TP SCH ×2 (09:11→17:28)
--- NOTE | 2021-10-30 12:00 | NUR ---
PER SPEECH THERAPY PT PASSED SWALLOW EVAL THIS AM. ORDER CHANGED TO PUREE DIET, THIN LIQUID. NG TUBE REMOVED AT THIS TIME. TUBE FEEDING DC'D. PT ATE A SMALL AMOUNT OF LUNCH. PT WAS ABLE TO DRINK JUICE FROM A STRAW WITHOUT ANY DIFFICULTY OR COUGHING. WILL CONTINUE TO MONITOR.
[2021-10-30] MEDS: ATORVASTATIN 10 MG TABLET PO SCH (17:28)
--- NOTE | 2021-10-30 18:47 | NUR ---
END OF SHIFT NOTE: PT IS BEING DOWNGRADED TO [facility] AND WILL TRANSFER NEXT SHIFT. PT IS MORE ALERT, OX2. PT ATE ONLY BITES OF LUNCH AND DINNER. NO ISSUES THIS SHIFT. PT CHECKED ON HOURLY AND PRN BY NURSING STAFF.
--- NOTE | 2021-10-30 19:40 | NUR ---
SUPERVISOR PARKING LOT NOTES: RECEIVED REPORT FROM ICU NURSE DAVID. PT TRANSFERRED TO [facility] FROM ICU. PLACED IN ROOM 113 BED 1. PT AWAKE, ALERT/ORIENTED X2 AND VERBALLY RESPONSIVE. ON O2 AT 2L/MIN VIA N/C. O2 SAT 96%. IV ACCESS ON FEDERICO PICC LINE INTACT. NO IV FLUID OR ATB RUNNING. BODY ASSESSMENT DONE. NOTED SACRAL AREA WITH SKIN EXCORIATIONS AND BLISTERS EXTENDED TO RT HIP. MULTIPLE SKIN REDNESS NOTED ON BOTH LOWER LEG AND BACK AREA. DTI ON RT ANKLE. SKIN SCAB ON NOSE BRIDGE. NO C/O PAIN OR DISCOMFORT. NO ACUTE DISTRESS. ALL DUE MED GIVEN ORDERED. ALL SAFETY MEASURES IN PLACE. BED IN LOWEST POSITION AND LOCKED. SIDE RAILS UP X3, PLACE CALL LIGHT WITH IN REACH. WILL CONTINUE TO MONITOR
[2021-10-31] VITALS: BP 144/83
[2021-10-31 04:00] VITALS: BP 131/81
--- NOTE | 2021-10-31 06:42 | NUR ---
RN CLOSING NOTES: PT AWAKE, ALERT/ORIENTED X2 AND VERBALLY RESPONSIVE. ON O2 AT 2L/MIN VIA N/C. IV ACCESS ON FEDERICO PICC LINE INTACT. REMAIN STABLE THROUGHOUT THE NIGHT. NO C/O PAIN OR DISCOMFORT. NO ACUTE DISTRESS. ALL DUE MED GIVEN ORDERED. ALL SAFETY MEASURES IN PLACE. BED IN LOWEST POSITION AND LOCKED. SIDE RAILS UP X3, PLACE CALL LIGHT WITH IN REACH. WILL ENDORSE TO MORNING SHIFT NURSE.
[2021-10-31 08:00] VITALS: BP 145/78
--- NOTE | 2021-10-31 08:10 | NUR ---
RN NOTE PT RECEIVED ASLEP IN BED, RESPONSIVE TO STIMULI. V/S STABLE. PT NOT IN DISTRESS. PORTILLO CATH IN PLACE AND DRAINING WELL. FEDERICO PICC IN PLACE AND PATENT. SAFETY MEASURES MAINTAINED, WILL CONT TO MONITOR.
[2021-10-31 08:12] LABS: BASOPHILS # (AUTO) 0.1 K/uL (0.0-0.2); BASOPHILS % (AUTO) 0.8 % (0.0-2.0); EOSINOPHILS % (AUTO) 2.5 % (0.0-6.0); HEMATOCRIT 34 % (39-51); HEMOGLOBIN 10.8 g/dL (13.5-17.5); LYMPHOCYTES % (AUTO) 10.1 % (20.0-44.0); MEAN CORPUSCULAR HGB CONC 32 g/dl (31.0-36.0); MEAN CORPUSCULAR VOLUME 93 fL (80-96); MONOCYTES # (AUTO) 0.9 K/uL (0.1-1.30); MONOCYTES % (AUTO) 8.8 % (2.0-12.0); NEUTROPHILS # (AUTO) 7.5 K/uL (1.8-8.9); NEUTROPHILS % (AUTO) 77.8 % (43.0-81.0); PLATELET COUNT (AUTO) 223 K/uL (150-450); RED BLOOD CELL COUNT(AUTO) 3.66 MIL/uL (4.5-6.0); WHITE BLOOD COUNT (AUTO) 9.6 K/uL (4.3-11.0)
[2021-10-31 08:17] LABS: CALCIUM, SERUM 8.8 mg/dL (8.5-10.1); CARBON DIOXIDE 34 mmol/L (21-32); CHLORIDE 108 mmol/L (98-107); CREATININE 0.7 mg/dL (0.6-1.3); GLUCOSE 86 mg/dL (74-106); POTASSIUM 3.7 mmol/L (3.5-5.1); SODIUM SERUM 146 mmol/L (136-145); UREA NITROGEN, BLOOD 45 mg/dL (7-18)
[2021-10-31 08:23] LABS: ALANINE AMINOTRANSFERASE 19 U/L (12-78); ALBUMIN 1.8 g/dL (3.4-5.0); ALKALINE PHOSPHATASE 93 U/L (46-116); ASPARTATE AMINOTRANSFERASE 21 U/L (15-37); BILIRUBIN,TOTAL 0.5 mg/dL (0.2-1.0); TOTAL PROTEIN, SERUM 6.1 g/dL (6.4-8.2)
[2021-10-31 08:48] LABS: MAGNESIUM 2.5 mg/dL (1.8-2.4); PHOSPHORUS 3.5 mg/dL (2.5-4.9)
[2021-10-31] MEDS: MODAFINIL 100 MG TABLET PO SCH (10:23)
[2021-10-31] MEDS: METOPROLOL TARTRATE 25 MG TABLET PO SCH ×2 (10:23→21:48)
[2021-10-31] MEDS: FERROUS SULFATE (325 MG) 325 MG/TAB TABLET PO SCH ×2 (10:23→16:45)
[2021-10-31] MEDS: APIXABAN 5 MG TABLET GT SCH ×2 (10:25→16:46)
[2021-10-31] MEDS: PANTOPRAZOLE 40 MG/PACK PACK NG SCH (10:25)
[2021-10-31] MEDS: AMMONIUM LACTATE 227 GM BOTTLE TP SCH ×2 (10:30→16:57)
[2021-10-31] MEDS: GENTAMICIN 0.1% OINT 15 GM TUBE TP SCH ×2 (10:31→16:57)
[2021-10-31 12:00] VITALS: BP 158/85
[2021-10-31 16:00] VITALS: BP 144/65
[2021-10-31] MEDS: ATORVASTATIN 10 MG TABLET PO SCH (16:45)
--- NOTE | 2021-10-31 19:02 | NUR ---
RN NOTE PT RESTING IN BED, RESPONSIVE TO STIMULI. V/S STABLE. PT NOT IN DISTRESS. PORTILLO CATH IN PLACE AND DRAINING WELL. FEDERICO PICC IN PLACE AND PATENT.ALL DUE MEDS GIVEN, AM/PM CARE RENDERED. SAFETY MEASURES MAINTAINED, WILL CONT TO MONITOR. STRICT ASPIRATION PREC FOLLOWED.
--- NOTE | 2021-10-31 19:08 | NUR ---
RN NOTES RECEIVED CARE OF PATIENT FROM AM NURSE, PATIENT RESTING IN BED, SLEEPING, OPENS EYES TO NAME, A/O X1. PATIENT ON O2 THERAPY VIA NC AT 2L/MIN, NO SOB NOTED. PATIENT IN NO DISCOMFORT OR PAIN AT THIS TIME. SAFETY MEASURES IMPLEMENTED PER HOSPITAL PROTOCOLS. WILL CONTINUE TO MONITOR PATIENT AND CARRY OUT PLAN OF CARE.
[2021-10-31 20:00] VITALS: BP 145/64
[2021-11-01] VITALS: BP 154/64
[2021-11-01 04:00] VITALS: BP 151/24
[2021-11-01 06:34] LABS: BASOPHILS # (AUTO) 0.1 K/uL (0.0-0.2); BASOPHILS % (AUTO) 0.6 % (0.0-2.0); EOSINOPHILS % (AUTO) 1.8 % (0.0-6.0); HEMATOCRIT 32 % (39-51); HEMOGLOBIN 10.3 g/dL (13.5-17.5); LYMPHOCYTES # (AUTO) 1.1 K/uL (0.8-4.8); LYMPHOCYTES % (AUTO) 11.7 % (20.0-44.0); MEAN CORPUSCULAR HGB CONC 32 g/dl (31.0-36.0); MEAN CORPUSCULAR VOLUME 92 fL (80-96); MONOCYTES # (AUTO) 0.8 K/uL (0.1-1.30); MONOCYTES % (AUTO) 8.3 % (2.0-12.0); NEUTROPHILS # (AUTO) 7.3 K/uL (1.8-8.9); NEUTROPHILS % (AUTO) 77.6 % (43.0-81.0); PLATELET COUNT (AUTO) 224 K/uL (150-450); RED BLOOD CELL COUNT(AUTO) 3.48 MIL/uL (4.5-6.0); WHITE BLOOD COUNT (AUTO) 9.4 K/uL (4.3-11.0)
--- NOTE | 2021-11-01 07:09 | NUR ---
RN CLOSING NOTES ENDORSED CARE OF PATIENT TO AM NURSE. PATIENT SLEEPING, WAKES UP TO NAME, PATIENT IN NO DISTRESS OR SHOWING SIGNS OF COMPLICATIONS AT THIS TIME, ALL DUE MEDS GIVEN, ALL PATIENT NEEDS ANTICIPATED AND MET. SAFETY MEASURES IMPLEMENTED PER HOSPITAL PROTOCOLS. ENDORSED CARE OF PATIENT TO AM NURSE FOR SRIDHAR.
--- NOTE | 2021-11-01 07:30 | NUR ---
ANDREW RN AM NOTES: PT IN BED, EYES CLOSED BUT AWAKE, ALERT/ORIENTED X2, ABLE TO MAKE NEEDS KNOWN, ON O2 AT 2L/MIN VIA N/C. SPO2 98%. NO SOB, RESPIRATION UNLABORED. AFIB CONTROLLED, HR 75 ON MONITOR, DENIES CHEST PAIN/DISCOMFORT, IV ACCESS ON FEDERICO PICC LINE, FLUSHES WELL, CDI DRESSING, SITE CLEAR. SEE NURSING FLOWSHEET FOR SKIN ISSUES. WILL PERFORM PRESCRIBED WOUND TREATMENT ORDERED. INDEPENDENT OF BED MOBILITY. PUREED DIET, ASPIRATION PRECAUTION, CRUSH MEDS, SAFETY MEASURES IN PLACE. BED IN LOWEST POSITION AND LOCKED. SIDE RAILS UP X2, HOB UP, PLACE CALL LIGHT WITH IN REACH. WILL CONTINUE TO MONITOR Addendum: 11/01/21 at 1154 by GARRISON GUAJARDO RN ADDENDUM: PORTILLO CATH IN PLACE. DRAINING TO ADEQUATE AMOUNT OF URINE.
[2021-11-01 07:57] LABS: ALBUMIN 1.9 g/dL (3.4-5.0); BILIRUBIN,TOTAL 0.5 mg/dL (0.2-1.0); CALCIUM, SERUM 8.9 mg/dL (8.5-10.1); CREATININE 0.8 mg/dL (0.6-1.3); MAGNESIUM 2.2 mg/dL (1.8-2.4); PHOSPHORUS 3.6 mg/dL (2.5-4.9); POTASSIUM 3.3 mmol/L (3.5-5.1); TOTAL PROTEIN, SERUM 6.3 g/dL (6.4-8.2)
[2021-11-01 08:00] VITALS: BP 125/79
[2021-11-01] MEDS: PANTOPRAZOLE 40 MG/PACK PACK NG SCH (08:23)
[2021-11-01] MEDS: FERROUS SULFATE (325 MG) 325 MG/TAB TABLET PO SCH ×2 (08:23→17:31)
[2021-11-01] MEDS: METOPROLOL TARTRATE 25 MG TABLET PO SCH ×2 (08:24→21:54)
[2021-11-01] MEDS: MODAFINIL 100 MG TABLET PO SCH (08:24)
[2021-11-01] MEDS: APIXABAN 5 MG TABLET GT SCH ×2 (08:27→17:32)
[2021-11-01] MEDS: AMMONIUM LACTATE 227 GM BOTTLE TP SCH ×2 (08:30→17:33)
[2021-11-01] MEDS: GENTAMICIN 0.1% OINT 15 GM TUBE TP SCH ×2 (08:30→17:33)
--- NOTE | 2021-11-01 09:30 | NUR ---
RN NOTES DUE MEDS GIVEN
[2021-11-01] MEDS ORDERED: POTASSIUM CHLORIDE 20 MEQ POWDER PACKET PO SCH (10:00)
[2021-11-01 12:00] VITALS: BP 107/64
[2021-11-01] MEDS ORDERED: LIDOCAINE 1%-EPI 1:100,000 20 ML VIAL TP ONE (15:00)
[2021-11-01] MEDS ORDERED: SILVER NITRATE APPLICATOR 1 EA BOX TP SCH (15:00)
[2021-11-01] MEDS: THERAHONEY GEL 1.5 OZ TUBE TP SCH (15:00)
[2021-11-01 16:00] VITALS: BP 126/69
[2021-11-01] MEDS: ATORVASTATIN 10 MG TABLET PO SCH (17:32)
--- NOTE | 2021-11-01 18:38 | NUR ---
TD RN CLOSING NOTES: PT IN BED, EYES CLOSED RESTING, RESPONDS TO NAME AND TOUCH. ALERT/ORIENTED X2, ABLE TO MAKE NEEDS KNOWN, ON O2 AT 2L/MIN VIA N/C. SPO2 98%. NO SOB, RESPIRATION UNLABORED. AFIB CONTROLLED, HR 64 ON MONITOR, DENIES CHEST PAIN/DISCOMFORT, IV ACCESS ON FEDERICO PICC LINE, FLUSHES WELL, CDI DRESSING, SITE CLEAR. PERFORMED PM CARE AND PRESCRIBED WOUND TREATMENT ORDERED. INDEPENDENT OF BED MOBILITY. PUREED DIET, ASPIRATION PRECAUTION, CRUSH MEDS, SAFETY MEASURES IN PLACE. BED IN LOWEST POSITION AND LOCKED. SIDE RAILS UP X2, HOB UP, PLACE CALL LIGHT WITH IN REACH. ALL NEEDS MET AT THIS TIME. WILL ENDORSE TO NEXT SHIFT FOR SRIDHAR. PORTILLO CATH IN PLACE WITH 375 ML TOTAL OUTPUT
--- NOTE | 2021-11-01 19:40 | NUR ---
RN OPENING NOTES RECEIVED CARE OF PATIENT FROM AM NURSE, PATIENT IN BED, SLEEPING, WAKES UP TO NAME, A/O X2, ABLE TO MAKE NEEDS KNOWN. PATIENT IN NO DISCOMFORT OR PAIN AT THIS TIME. ON O2 THERAPY VIA NC AT 2 L/MIN, O2 SAT 100%. TELE MONITOR READING AFIB CONTROLLED, HR 66 ON MONITOR. IV ACCESS ON FEDERICO PICC LINE, FLUSHES WELL, CDI DRESSING, SITE CLEAR. SAFETY MEASURES IN PLACE. BED IN LOWEST POSITION AND LOCKED. SIDE RAILS UP X2, HOB 30 DEGREES UP. WILL CONTINUE TO MONITOR PATIENT AND CARRY OUT PLAN OF CARE.
[2021-11-01 20:00] VITALS: BP 149/73
[2021-11-02] VITALS: BP 145/78
[2021-11-02 04:00] VITALS: BP 151/74
[2021-11-02 06:21] LABS: BASOPHILS # (AUTO) 0.1 K/uL (0.0-0.2); BASOPHILS % (AUTO) 0.8 % (0.0-2.0); EOSINOPHILS % (AUTO) 2.5 % (0.0-6.0); HEMATOCRIT 30 % (39-51); HEMOGLOBIN 9.8 g/dL (13.5-17.5); LYMPHOCYTES # (AUTO) 0.9 K/uL (0.8-4.8); LYMPHOCYTES % (AUTO) 9.1 % (20.0-44.0); MEAN CORPUSCULAR HGB CONC 33 g/dl (31.0-36.0); MEAN CORPUSCULAR VOLUME 92 fL (80-96); MONOCYTES # (AUTO) 0.8 K/uL (0.1-1.30); MONOCYTES % (AUTO) 8.1 % (2.0-12.0); NEUTROPHILS # (AUTO) 7.4 K/uL (1.8-8.9); NEUTROPHILS % (AUTO) 79.5 % (43.0-81.0); PLATELET COUNT (AUTO) 189 K/uL (150-450); RED BLOOD CELL COUNT(AUTO) 3.28 MIL/uL (4.5-6.0); WHITE BLOOD COUNT (AUTO) 9.4 K/uL (4.3-11.0)
[2021-11-02 06:42] LABS: CALCIUM, SERUM 8.8 mg/dL (8.5-10.1); CREATININE 0.8 mg/dL (0.6-1.3); POTASSIUM 3.2 mmol/L (3.5-5.1)
--- NOTE | 2021-11-02 06:44 | NUR ---
RN CLOSING NOTES WILL ENDORSE CARE OF PATIENT TO AM NURSE. PATIENT SLEEPING, WAKES UP TO NAME, PATIENT IN NO DISTRESS OR SHOWING SIGNS OF COMPLICATIONS AT THIS TIME, ALL DUE MEDS GIVEN, ALL PATIENT NEEDS ANTICIPATED AND MET. SAFETY MEASURES IMPLEMENTED PER HOSPITAL PROTOCOLS. WILL ENDORSE CARE OF PATIENT TO AM NURSE FOR SRIDHAR.
[2021-11-02 06:47] LABS: ALBUMIN 1.9 g/dL (3.4-5.0); BILIRUBIN,TOTAL 0.5 mg/dL (0.2-1.0); PHOSPHORUS 3.5 mg/dL (2.5-4.9)
--- NOTE | 2021-11-02 07:30 | NUR ---
TD RN AM NOTES: PT IN BED, EYES CLOSED BUT AWAKE, ALERT/ORIENTED X2, ABLE TO MAKE NEEDS KNOWN, ON O2 AT 2L/MIN VIA N/C. SPO2 98%. NO SOB, RESPIRATION UNLABORED. AFIB CONTROLLED, HR 78 ON MONITOR, DENIES CHEST PAIN/DISCOMFORT, IV ACCESS ON FEDERICO PICC LINE, FLUSHES WELL, CDI DRESSING, SITE CLEAR. SEE NURSING FLOWSHEET FOR SKIN ISSUES. WILL PERFORM PRESCRIBED WOUND TREATMENT ORDERED. INDEPENDENT OF BED MOBILITY. PUREED DIET, ASPIRATION PRECAUTION, CRUSH MEDS, PORTILLO CATH IN PLACE. DRAINING TO ADEQUATE AMOUNT OF URINE.SAFETY MEASURES IN PLACE. BED IN LOWEST POSITION AND LOCKED. SIDE RAILS UP X2, HOB UP, PLACE CALL LIGHT WITH IN REACH. WILL CONTINUE TO MONITOR FOR SACRAL WOUND DEBRIDEMENT C/O NAV WEEMS
[2021-11-02 08:00] VITALS: BP 148/72
[2021-11-02] MEDS: PANTOPRAZOLE 40 MG/PACK PACK NG SCH (08:38)
[2021-11-02] MEDS: FERROUS SULFATE (325 MG) 325 MG/TAB TABLET PO SCH (08:38)
[2021-11-02] MEDS: MODAFINIL 100 MG TABLET PO SCH (08:38)
[2021-11-02] MEDS: THERAHONEY GEL 1.5 OZ TUBE TP SCH (08:38)
[2021-11-02] MEDS: METOPROLOL TARTRATE 25 MG TABLET PO SCH (08:40)
[2021-11-02] MEDS: APIXABAN 5 MG TABLET GT SCH (08:40)
[2021-11-02] MEDS: GENTAMICIN 0.1% OINT 15 GM TUBE TP SCH (08:41)
[2021-11-02] MEDS: AMMONIUM LACTATE 227 GM BOTTLE TP SCH (08:41)
--- NOTE | 2021-11-02 09:30 | NUR ---
RN NOTES DUE MEDS GIVEN
[2021-11-02] MEDS ORDERED: POTASSIUM CHLORIDE 20 MEQ POWDER PACKET PO SCH (10:00)
[2021-11-02] MEDS ORDERED: METO25TA20 PO (11:32)
[2021-11-02] MEDS ORDERED: COLL30OI TP (11:32)
[2021-11-02] MEDS ORDERED: AMMO225L14 TP (11:32)
[2021-11-02] MEDS ORDERED: PANT40SU2 NG (11:32)
[2021-11-02 12:00] VITALS: BP 116/61
--- NOTE | 2021-11-02 13:17 | NUR ---
RN NOTE PATIENT TO BE DISCHARGED TO HOME TODAY WITH ASSISTED HOME HEALTH, IN STABLE CONDITION. PROVIDED DC INSTRUCTIONS, MED RECON LIST AND HEALTH TEACHINGS. PATIENT TO FOLLOW UP WITH PCP AND WOUND CARE CLINIC INSTRUCTED IN 1 WEEK AND WILL MAKE THEIR OWN APPOINTMENT. IV ACCESS FEDERICO PICC LINE TO BE REMOVED PRIOR TO DISCHARGE. REFUSE PHOTOS OF SKIN ISSUES. PORTILLO CATHETER IN PLACE, PATENT AND INTACT. HOME HEALTH TO DO PORTILLO CARE. PATIENT TO BE PICKED UP BY AMBULANCE TO TRANSPORT TO HOME. ALL BELONGINGS CHECKED AND RETURNED. ALL PAPER WORKS SIGNED.
--- NOTE | 2021-11-02 14:20 | NUR ---
RN NOTES SPOKE WITH WILDER BRICENO NP, PATIENT HAS NO INDICATIONS FOR PORTILLO CATHETER, AWARE THAT PATIENT IS ON HOME HEALTH AND POST SACRAL DEBRIDEMENT. PER HER, PATIENT WILL NEED TO SEE A UROLOGIST TO REMOVE PORTILLO CATHETER ONCE NOT NEEDED ANYMORE.
--- NOTE | 2021-11-02 15:01 | NUR ---
PORTILLO CATHETER REMOVED PER MD'S ORDER. PATIENT HAD 320 CC OF YELLOW ORANGE URINE, NO BLOOD AND NO HEMATURIA NOTED
--- NOTE | 2021-11-02 16:06 | NUR ---
TRANSPORTATION CAME TO SHANK CARRIER THE PATIENT, REMOVED IV LINES, TELE MONITOR AND ID BAND. PATIENT LEFT IN NO APPARENT DISTRESS VIA RNEY
== END 2021-11-02 16:17 | disposition home or self-care (01) | DRG 853 ==
LOC: ER 13:59 → ICU 16:25 → TELE-TD 10-30 19:30
PROVIDERS: ADMIT Nurse Practitioner Acute Care; ATTEND Registered Nurse
PROC: 5A1955Z Respiratory Ventilation, Greater than 96 Consecutive Hours (ICD-10-PCS; principal; 2021-10-15)
PROC: 0BH18EZ Insertion of Endotracheal Airway into Trachea, Via Natural or Artificial Opening Endoscopic (ICD-10-PCS; 2021-10-15)
PROC: 02HV33Z Insertion of Infusion Device into Superior Vena Cava, Percutaneous Approach (ICD-10-PCS; 2021-10-15)
PROC: B548ZZA Ultrasonography of Superior Vena Cava, Guidance (ICD-10-PCS; 2021-10-15)
PROC: 5A09457 Assistance with Respiratory Ventilation, 24-96 Consecutive Hours, Continuous Positive Airway Pressure (ICD-10-PCS; 2021-10-24)
PROC: 0KBN0ZZ Excision of Right Hip Muscle, Open Approach (ICD-10-PCS; 2021-11-02)
PROC: 0KBP0ZZ Excision of Left Hip Muscle, Open Approach (ICD-10-PCS; 2021-11-02)
PROC: 0KBP0ZZ Excision of Left Hip Muscle, Open Approach (ICD-10-PCS; 2021-11-02)
PROC: 0KBN0ZZ Excision of Right Hip Muscle, Open Approach (ICD-10-PCS; 2021-11-02)
DX: A41.9 Sepsis, unspecified organism (principal); G93.41 Metabolic encephalopathy; L89.154 Pressure ulcer of sacral region, stage 4; I26.99 Other pulmonary embolism without acute cor pulmonale; I21.4 Non-ST elevation (NSTEMI) myocardial infarction; J96.01 Acute respiratory failure with hypoxia; J69.0 Pneumonitis due to inhalation of food and vomit; J96.02 Acute respiratory failure with hypercapnia; R65.21 Severe sepsis with septic shock; N17.0 Acute kidney failure with tubular necrosis; J15.9 Unspecified bacterial pneumonia; E44.1 Mild protein-calorie malnutrition; E87.1 Hypo-osmolality and hyponatremia; E87.0 Hyperosmolality and hypernatremia; I42.9 Cardiomyopathy, unspecified; L97.319 Non-pressure chronic ulcer of right ankle with unspecified severity; L03.116 Cellulitis of left lower limb; L03.115 Cellulitis of right lower limb; J98.11 Atelectasis; J90 Pleural effusion, not elsewhere classified; I82.413 Acute embolism and thrombosis of femoral vein, bilateral; I82.433 Acute embolism and thrombosis of popliteal vein, bilateral; I48.20 Chronic atrial fibrillation, unspecified; E83.39 Other disorders of phosphorus metabolism; E78.5 Hyperlipidemia, unspecified; Z20.822 Contact with and (suspected) exposure to COVID-19; I12.9 Hypertensive chronic kidney disease with stage 1 through stage 4 chronic kidney disease, or unspecified chronic kidney disease; N18.9 Chronic kidney disease, unspecified; Z86.73 Personal history of transient ischemic attack (TIA), and cerebral infarction without residual deficits; Z79.899 Other long term (current) drug therapy; Z87.01 Personal history of pneumonia (recurrent); Z86.16 Personal history of COVID-19; R79.1 Abnormal coagulation profile; N40.0 Benign prostatic hyperplasia without lower urinary tract symptoms; Z95.1 Presence of aortocoronary bypass graft; I25.10 Atherosclerotic heart disease of native coronary artery without angina pectoris; E88.09 Other disorders of plasma-protein metabolism, not elsewhere classified; N28.1 Cyst of kidney, acquired; E86.1 Hypovolemia; G51.0 Bell's palsy; E87.70 Fluid overload, unspecified; F03.90 Unspecified dementia, unspecified severity, without behavioral disturbance, psychotic disturbance, mood disturbance, and anxiety; I77.810 Thoracic aortic ectasia; Z79.01 Long term (current) use of anticoagulants; B95.61 Methicillin susceptible Staphylococcus aureus infection as the cause of diseases classified elsewhere
CPT/HCPCS: 31720; 36415; 36569; 36600; 70450-TC; 71045-TC; 76770-TC; 80048-TC; 80053-TC; 80061-TC; 80076-TC; 81001; 82570-TC; 82803-TC; 83605-TC; 83735-TC; 83880; 84100-TC; 84300-TC; 84443-TC; 84484-TC; 85025-TC; 85378-TC; 85730-TC; 87040-TC; 87070-TC; 87081-TC; 87086-TC; 92526; 92611-TC; 93307-TC; 93970-TC; 94003-TC; 94660; 94760-TC; 94762-TC; 94799-TC; 97112-TC; 97530-TC; 99082-TC; A6253; C9113; C9803; G0378; J0360; J0692; J0885; J1100; J1644; J1940; J2185; J2370; J2543; J3480; J3490; J7030; J7042; J7050; J7060; J7070; J7120; Q9967; U0003